=== PATIENT | male | born 1965 | race Two or more races ===

== ENCOUNTER 2024-07-15 19:45 | Observation (INO) | payer BC, SELFPAY ==
[2024-07-15] VITALS (8 sets, daily range): BP systolic 118–145; BP diastolic 75–92; PULSE 76–106; RESP 14–98; TEMP 33.5–36.4; O2SAT 95–100; BMI 18.4
--- NOTE | 2024-07-15 20:09 | EDNOTE_ITS ---
Altered Mental Status RME/HPI General Chief Complaint: Altered Mental Status Stated Complaint: LOW BLOOD SUGAR Time Seen by Provider: 07/15/24 19:52 Arrival date/time: 07/15/24 19:45 RME / HPI RME / HPI narrative: Dr. Pak?s Main ED Evaluation: 59yo male ABHISHEK from home presents to the ED for a chief complaint of altered mental status. Daughter states she was checking on the patient and noticed he was not acting his usual self, reporting she called 911 after she found the patient to have a blood sugar of 39. With EMS, blood sugar was 34, so they administered 250mL D10. They noticed the patient's pupils were pinpoint, so they administered Narcan 4mg and the patient woke up. Here, patient states he is cold, but daughter states that is usual for him. EMS notes the patient took 4 units of insulin, but did not eat anything today. No vomiting, fever or any other complaints reported. PMHx: seizures, PUD, s/p gastric bypass surgery, HTN, DMII, chronic opioid use for back pain. Related Data Home Medications ?Medication ?Instructions ?Recorded ?Confirmed ramipril 10 mg capsule (Altace) 10 mg PO QDAY 05/22/19 04/22/24 oxycodone 30 mg tablet (Roxicodone) 30 mg PO 4XD PRN Pain 01/04/22 04/22/24 ondansetron HCl 8 mg tablet 8 mg PO DAILY PRN Nausea 09/22/22 04/22/24 naloxone 4 mg/actuation nasal 1 spray intranasal Q2M PRN 12/10/22 04/22/24 spray (Narcan) Respiratory Distress levetiracetam 500 mg tablet 500 mg PO BID 07/18/23 04/22/24 potassium chloride 10 mEq 10 meq PO PRN PRN when taking lasix 07/19/23 04/22/24 tablet,extended release propranolol 10 mg tablet 10 mg PO BID 07/19/23 04/22/24 finerenone 10 mg tablet (Kerendia) 10 mg PO QDAY 04/03/24 04/22/24 Previous Rx's ?Medication ?Instructions ?Recorded lidocaine 5 % topical patch 1 patch topical QDAY PRN back pain 01/30/24 (Lidoderm) #30 ea Allergies Allergy/AdvReac Type Severity Reaction Status Date / Time ibuprofen AdvReac Severe gastric Verified 04/03/24 17:31 bypass Review of Systems Review of Systems Systems Reviewed: All systems reviewed, normal except as documented Narrative Review of Systems: Gen: No fever, + chills, no weight loss EYES: No discharge, no visual changes, no pain HEENT: No ear pain, no congestion, no sore throat PULM: No shortness of breath, no cough, no congestion CV: No chest pain, no dyspnea on exertion, no palpitations GI: No nausea, no vomiting, no diarrhea, no pain, no constipation : No frequency, no urgency, no dysuria Musc/skel: No joint pain, no back pain Skin: No rash. Warm and dry. Psyc: No hallucinations, no depression Heme/Lymph: No easy bleeding or bruising tendencies Neuro: No weakness, no headache Past Medical History Past Medical History NEUROLOGIC: Positive Neurological Disorders, Seizures and Epilepsy; Negative Transient Ischemic Attacks (TIA) CARDIAC: Positive Deep Vein Thrombosis and Hypertension; Negative Cardiac Disorders or Congestive Heart Failure RESPIRATORY: Positive Pulmonary Embolism; Negative Chronic Obstructive Pulmonary Disease (COPD), Asthma, Bronchitis or Pneumonia GASTROINTESTINAL: Positive Gastrointestinal Disorders, Gastrointestinal Bleed and Gastroesophageal Reflux Disease GENITOURINARY: Positive Genitourinary Disorders and Renal Disease MUSCULOSKELETAL: Positive Musculoskeletal Disorders, Arthritis, Osteoporosis and Fractures ENDOCRINE: Positive Endocrine Disorders and Diabetes Mellitus Type 2; Negative Diabetes Mellitus Type 1 HEMATOLOGIC: Positive Anemia and Clotting Problems; Negative Blood Disorders or Sickle Cell Disease OTHER HISTORY: Positive Hospitalization, Falls and Blood Transfusions; Negative Autoimmune Disease, Down Syndrome, Developmental Delay, Shingles, Blood Transfusion Reaction, Anesthesia Reactions, MRSA, Clostridium Difficile or Cancer Family History FAMILY HISTORY: Positive Family Cardiac Disorders and Family Cancer Surgical History SURGICAL: Positive Abdominal Surgery and Gastric Bypass Surgery; Negative Cardiac Surgery Social History SMOKING STATUS: Never smoker SECOND HAND EXPOSURE: No SUBSTANCE USE: does not use ED Exam Narrative Physical exam: GENERAL APPEARANCE: somnolent, but arousable to voice, well-developed, well- nourished, no acute distress VITALS: All vitals were reviewed and the pulse ox is 99% on room air, which is normal according to my interpretation. Patient is hypothermic at 92.3. HEENT: Normocephalic, atraumatic; pupils equal, round, reactive to light; EOMI; mucous membranes pink, moist; oropharynx clear NECK: Supple LUNGS: CTABL; no wheezes, no rales, no rhonchi HEART: Regular rate, regular rhythm; normal S1, S2; no murmurs ABDOMEN: non distended; normal BS; soft, no tenderness, no guarding, no rebound; no masses, no organomegaly, no hernia BACK: no CVA tenderness EXTREMITIES: atraumatic; no edema NEUROLOGIC: somnolent, but arousable to voice; cranial nerves II-XII grossly intact; no focal sensory or motor deficits PSYCHIATRIC: appropriate mood and affect SKIN: warm, dry, normal color; no rashes Course Course Course Narrative: CXR is ordered for determining the etiology of AMS. 2027: Patient's blood sugar is 57. D50 50mL ordered. Quality Measures none Orders Category Date Time Status Data Analytics Specialist STAT Care 07/15/24 20:11 Active Continuous Pulse Oximetry STAT Care 07/15/24 20:11 Completed EKG (ED ONLY) *Do not use* NOW Care 07/15/24 20:11 Completed In and Out Catheter X1PRN Care 07/15/24 20:11 Completed Insert IV NOW Care 07/15/24 20:11 Active NPO STAT Care 07/15/24 20:11 Active Strict Intake and Output Routine Care 07/15/24 20:11 Ordered Urinary Catheter QS Care 07/15/24 20:10 Active EKG (ED Only) Stat Exams 07/15/24 20:11 Ordered XR chest 1V portable Stat Exams 07/15/24 20:10 Completed Arterial Blood Gas Stat Lab 07/15/24 21:46 Completed B-Type Natriuretic Peptide Stat Lab 07/15/24 20:30 Completed Blood Culture (Lab) Stat Lab 07/15/24 20:25 Received CBC Stat Lab 07/15/24 20:25 Completed Comprehensive Metabolic Panel Stat Lab 07/15/24 20:30 Completed Drug Screen,Urine Stat Lab 07/15/24 21:38 Completed Free T4 (Free Thyroxine) Stat Lab 07/15/24 20:30 Completed LDH (Lactate Dehydrogenase) Stat Lab 07/15/24 20:30 Completed Lactate (Lactic Acid) Stat Lab 07/15/24 20:30 Completed Lipase Stat Lab 07/15/24 20:30 Completed Magnesium Stat Lab 07/15/24 20:30 Completed Partial Thromboplastin Time Stat Lab 07/15/24 20:30 Completed Phosphorous Stat Lab 07/15/24 20:30 Completed Procalcitonin Stat Lab 07/15/24 20:30 Completed Prothrombin Time with INR Stat Lab 07/15/24 20:30 Completed TSH [Thyroid Stimulating Hormone] Stat Lab 07/15/24 20:30 Completed Troponin I Stat Lab 07/15/24 20:30 Completed Urinalysis Stat Lab 07/15/24 21:38 Completed Urine Culture Stat Lab 07/15/24 21:38 Received Dextrose 5%-0.45% Ns [D5-1/2Ns] 1,000 ml Med 07/15/24 21:39 Active IV NOW Dextrose 50% Syr [D50w Syringe Abboject] Med 07/15/24 20:15 Discontinued 25 ml IV X1 ONE Dextrose 50% Syr [D50w Syringe Abboject] Med 07/15/24 20:28 Discontinued 25 ml IV X1 ONE Doxycycline Inj [Vibramycin Inj] 200 mg Med 07/15/24 20:10 Discontinued Sodium Chloride 0.9% 250 ml [Ns] 250 ml IV X1 Piper/Tazo 3.375 gm [Zosyn] Med 07/15/24 20:10 Discontinued 3.375 gm in 50 ml IV X1 Sodium Chloride 0.9% 1000 ml [Ns] 1,000 ml Med 07/15/24 20:10 Discontinued IV 999 mls/hr Oxygen Delivery NOW RT 07/15/24 20:11 Active Vital Signs Vital signs: Vital Signs Temperature 92.3 F L 07/15/24 19:58 Pulse Rate 106 H 07/15/24 19:58 Respiratory Rate 20 07/15/24 19:58 Blood Pressure 145/84 H 07/15/24 19:58 Pulse Oximetry (%) 100 07/15/24 19:58 Oxygen Delivery Method Room Air 07/15/24 19:58 Altered Mental Status MDM Narrative MDM Narrative:: Scribe Attestation: 07/15/24 - Evelyn Kang am scribing for and in the presence of Dr. Pak. Patient data External records reviewed:: [facility] previous records (Per chart review, patient was admitted here on 04/21/24 for hypoglycemia.) Clinical information provided by:: patient, EMS and family Social determinants that could affect healthcare access:: none Patient has the following chronic illnesses:: seizures, PUD, s/p gastric bypass surgery, HTN, DMII, chronic opioid use for back pain How is presenting disease/condition affected by chronic disease/condition?: caused by Evaluation data The following diagnostics were reviewed and interpreted by me:: lab results, radiology exam(s) and EKG tracing(s) Lab and/or radiology exams considered but not ordered:: none Interpretation Summary: WBC count is normal, HnH is stable 9.4/29.8 (which is the patient's baseline), Lactate is normal, BNP is normal, PTT is normal, PT and INR are normal, Glucose is low at 54, BUN is 31, LFTs are slightly elevated, troponin is normal, BNP is normal, Procalcitonin is normal, TSH is normal, Free T4 is normal, UA is unremarkable, UDS is positive for opiates, according to my interpretation. CXR shows an elevated right hemidiaphragm, otherwise, normal cardiac silhouette, no infiltrates, according to my interpretation. EKG done at 2021, NSR, rate of 86, normal axis, no ectopy, Q waves in V1 and V2, no acute ischemia, according to my interpretation. Medications / Prescriptions Medications or Prescriptions considered but not ordered:: none Medication administrations:: Medication Administration History Dextrose/Sodium Chloride (D5-1/2ns) 1,000 mls @ 100 mls/hr IV NOW ONE Stop: 07/16/24 07:38 Last Admin: 07/15/24 21:47 Dose: 100 mls/hr Documented By: JUAN CARLOS Discontinued Medications Dextrose (Dextrose 50%-Water Inj 50 Ml Syringe) 25 ml IV X1 ONE Stop: 07/15/24 20:16 Last Admin: 07/15/24 20:34 Dose: 25 ml Documented By: JUAN CARLOS Dextrose (Dextrose 50%-Water Inj 50 Ml Syringe) 25 ml IV X1 ONE Stop: 07/15/24 20:29 Last Admin: 07/15/24 20:35 Dose: 25 ml Documented By: JUAN CARLOS Piperacillin/Tazobactam/Dextrose (Zosyn) 3.375 gm in 50 mls @ 100 mls/hr IV X1 ONE Stop: 07/15/24 20:39 Last Infusion: 07/15/24 21:59 Dose: Infused Documented By: JUAN CARLOS Admin: 07/15/24 20:36 Dose: 100 mls/hr Documented By: JUAN CARLOS Doxycycline Hyclate 200 mg/ (Sodium Chloride) 250 mls @ 125 mls/hr IV X1 ONE Stop: 07/15/24 22:09 Last Infusion: 07/15/24 22:47 Dose: Infused Documented By: Admin: 07/15/24 20:36 Dose: 125 mls/hr Documented By: SF Sodium Chloride (Ns) 1,000 mls @ 999 mls/hr IV .Q1H1M ONE Stop: 07/15/24 21:10 Last Infusion: 07/15/24 21:59 Dose: Infused Documented By: Admin: 07/15/24 20:36 Dose: 999 mls/hr Documented By: SF see above Consultations Consultation(s) initiated? (list below): Yes Consultation #1 (Physician, Specialty, Details): Discussed case with [Dr. Parker, attending Dr. Davila] from Hospitalist service regarding admission. Discussed patients ED course, exam findings, labs, and radiology results. The Hospitalist [agrees] to accept the patient for ad mission. Time: 23:04 Diagnosis Differential diagnosis altered mental status: hypoglycemia, sepsis and other (UTI, pneumonia, dehydration) Most likely diagnosis given after review of the tests above:: dehydration, sepsis, hypoglycemia Admission Indicated Admission indicated?: indicated Admission Request Was there a request for admission?: Yes Admission Attestation Admission request attestation: Discussed case with [] from Hospitalist service regarding admission. Discussed patients ED course, exam findings, labs, and radiology results. The Hospitalist [agrees,declines] to accept the patient for admission. Disposition Plan Disposition Plan: Admit Critical Care Time Critical Care Time Critical Care Time: Yes Total Critical Care Time (min.): 40 Attestation: The high probability of sudden, clinically significant deterioration in the patient?s condition required the highest level of my preparedness to intervene u rgently. The services I provided to this patient were to treat and/or prevent clinically significant deterioration. Services included the following: chart data review, reviewing nursing notes and/or old charts, documentation time, student union consultant collaboration regarding findings and treatment options, medication orders and management, direct patient care, vital sign assessments and ordering, interpre ting and reviewing diagnostic studies and lab tests. Aggregate critical care time includes only time during which I was engaged in work directly related to the patient?s care, as described above, whether at bedside or elsewhere in the Emergency Department. It did not include time spent performing other reported procedures or the services of residents, students, nurses or physician assistants. Discharge Plan Plan Patient Disposition: Admit Acute Care w/in Hospital Prescriptions/Referrals Prescriptions/Med Rec: No Action ramipril [Altace] 10 mg Capsule 10 mg PO QDAY oxycodone [Roxicodone] 30 mg tablet 30 mg PO 4XD PRN (Reason: Pain) ondansetron HCl 8 mg tablet 8 mg PO DAILY PRN (Reason: Nausea) naloxone [Narcan] 4 mg/actuation spray,non-aerosol 1 spray intranasal Q2M PRN (Reason: Respiratory Distress) Rx Instructions: spray 1 dose into ONE nostril; alternate nostrils w each dose until help arrives levetiracetam 500 mg tablet 500 mg PO BID potassium chloride 10 mEq Tablet Extended Release 10 meq PO PRN PRN (Reason: when taking lasix) propranolol 10 mg Tablet 10 mg PO BID lidocaine [Lidoderm] 5 % adhesive patch,medicated 1 patch topical QDAY PRN (Reason: back pain) Qty: 30 0RF Rx Instructions: leave on most painful area for up to 12 hrs Kerendia 10 mg tablet 10 mg PO QDAY Referrals: No Primary/Family,Physician [Primary Care Provider] - In 1 week Problem List Clinical Impression: Hypoglycemia, Sepsis, Dehydration Patient/Caregiver Discharge Instructions Print Language: Bengali Stand Alone Forms: Sherrell Award Info., Patient Portal Info Letter
--- NOTE | 2024-07-15 20:10 | XR_ITS ---
Examination: AP chest single view Technique one AP portable semiupright chest single view Standing time: 10.2024 hours INDICATIONS: Sepsis today. FINDINGS: Early pneumonia left base Significant elevation right hemidiaphragm Normal heart size IMPRESSION: Early pneumonia left base
[2024-07-15] MEDS: DEXTROSE 50%-WATER INJ 50 ML SYRINGE 25 ML IV ×2 (20:34→20:35)
[2024-07-15] MEDS: DOXYCYCLINE INJ 200 MG in SODIUM CHLORIDE 0.9% 250 ML 250 ML 125 MG IV (20:36)
[2024-07-15] MEDS: PIPER/TAZO 3.375 GM 3.375 GM/50 ML BAG IV (20:36)
[2024-07-15] MEDS: SODIUM CHLORIDE 0.9% 1000 ML 1,000 ML 999 ML IV (20:36)
[2024-07-15 20:44] LABS: Lactate (Lactic Acid) 1.5 mMol/L (0.4-2.0)
[2024-07-15 20:48] LABS: Basophils % (Auto) 0 % (0-2.5); Eosinophils % (Auto) 0 % (0-10); Hematocrit 29.8 % (41.0-53.0); Hemoglobin 9.4 g/dL (13.5-16.0); Immature Granulocytes % (Auto) 0 % (0-0); Immature Granulocytes Auto 0.01 Thou/mm3 (0.00-0.00); Lymphocytes # (Auto) 0.4 Thou/mm3 (1.0-4.8); Lymphocytes % (Auto) 9 % (10-50); Mean Corpuscular HGB Conc 31.5 g/dl (31.0-37.0); Mean Corpuscular Hemoglobin 25.3 pg (25.0-35.0); Mean Corpuscular Volume 80 fL (80-100); Monocytes # (Auto) 0.5 Thou/mm3 (0.0-0.8); Monocytes % (Auto) 12 % (0-12); Neutrophils # (Auto) 3.4 Thou/mm3 (1.8-7.7); Neutrophils % (Auto) 79 % (37-80); Nucleated Red Blood Cell % 0 /100 WBC (0); Platelet Count 250 Thou/mm3 (140-440); RDW Standard Deviation 56.4 fL (35.1-43.9); Red Blood Count 3.72 Miln/mm3 (4.50-5.90); White Blood Count 4.3 Thou/mm3 (3.8-10.6)
[2024-07-15 21:00] LABS: Partial Thromboplastin Time 28.5 Seconds (22.0-36.0); Prothrombin Time 10.7 Seconds (9.0-12.2)
[2024-07-15 21:18] LABS: B-Type Natriuretic Peptide 52 pg/mL (0-100)
[2024-07-15 21:20] LABS: Alanine Aminotransferase 64 U/L (10-49); Albumin, Serum 4.2 gm/dL (3.4-4.8); Albumin/Globulin Ratio 1.6 (1.2-2.2); Alkaline Phosphatase 164 U/L (46-116); Anion Gap 10 (7-16); Aspartate Amino Transferase 45 U/L (0-34); BUN/Creatinine Ratio 28 Ratio (12-20); Bilirubin,Total 0.4 mg/dL (0.3-1.2); Blood Urea Nitrogen 31 mg/dL (9-23); Calcium 9.8 mg/dL (8.3-10.6); Calcium (Corrected) 9.8 mg/dL (8.5-10.1); Carbon Dioxide 27.2 mMol/L (20.0-31.0); Chloride 95 mMol/L (98-107); Creatinine (Component) 1.1 mg/dL (0.6-1.3); Estimated Creatinine Clearance 57.3 mL/min (>60); Free T4 (Free Thyroxine) 1.69 ng/dL (0.89-1.76); Globulin 2.7 gm/dL (2.3-3.5); Glucose 54 mg/dL (74-106); Lipase 22 U/L (12-53); Magnesium 1.9 mg/dL (1.6-2.6); Osmolality,Calculated 269 (275-295); Phosphorous 2.6 mg/dL (2.4-5.1); Potassium 3.5 mMol/L (3.4-5.1); Procalcitonin 0.26 ng/ml (0.0-0.49); Sodium 132 mMol/L (136-145); Thyroid Stimulating Hormone 0.62 uIU/mL (0.55-4.78); Total Protein 6.9 gm/dL (5.7-8.2); Troponin I < 0.020 ng/mL (0.0-0.045); eGFR > 60 See Note
[2024-07-15] MEDS: DEXTROSE 5%-0.45% NS 1,000 ML 100 ML IV (21:47)
[2024-07-15 21:52] LABS: LDH (Lactate Dehydrogenase) 254 U/L (120-246)
[2024-07-15 21:52] LABS: Base Excess 3 (-3-3); HCO3 28 mEq/L (20-26); Inspired Oxygen, FIO2 21 %; O2 Saturation 96 % (91-98); PCO2 45 mmHg (32.0-48.0); PO2 76 mmHg (83-108)
[2024-07-15 21:56] LABS: Allen Test Performed/OK; Puncture Site Right Radial
[2024-07-15 21:57] LABS: Collection Type, Urine Clean Catch; Squamous Epithelial Cell,Urine 0 /hpf (0-5)
[2024-07-15 22:13] LABS: Amphetamine/Methamp Scrn,U Negative (Negative); Barbiturate Screen,Urine Negative (Negative); Benzodiazepines Screen,Urine Negative (Negative); Benzoylecgonine Screen, Ur Negative (Negative); Fentanyl Screen,Urine Negative (Negative); Opiate Screen,Urine Positive (Negative); THC Screen,Urine Negative (Negative)
[2024-07-15 22:22] LABS: Bilirubin,Urine Negative (Negative); Blood,Urine Negative (Negative); Clarity,Urine Clear (Clear/Hazy); Color,Urine Lt-Yellow (Lt Yel-Yel); Glucose, Urine 1+ (Negative); Ketones,Urine 1+ (Negative); Leukocyte Esterase,Urine Negative (Negative); Nitrite,Urine Negative (Negative); Protein,Urine Trace (Neg - Trace); RBC,Urine 1 /hpf (0-3); Specific Gravity,Urine 1.014 (1.001-1.035); Urobilinogen,Urine Negative mg/dL (0.0-1.0); WBC,Urine < 1 /hpf (0-5)
[2024-07-15] MEDS: DEXTROSE 50%-WATER INJ 50 ML SYRINGE IV (23:26)
--- NOTE | 2024-07-15 23:45 | PD.RESHP ---
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 According to patient's daughter at approximately 7 PM she found him lying on his bed diaphoretic and with chills. She said she checked his blood glucose at the time and it was 46. He was attempting to verbalize but unable to do so, she was scared to give him anything p.o. as she was worried that he could not protect his airway. Subsequently she called the EMS for transport to the hospital. Denied any shaking, tongue biting, eye rolling, urinary/stool incontinence, postictal state, syncope. Currently patient is alert and oriented x 3. He says that around 2 PM he had a large slice of pumpkin pie and subsequently took 4 units of regular insulin SC. He then went to having a nap. From chart review patient has had multiple admissions for the past year all for hypoglycemic episodes. Currently he is on sliding scale insulin regular at home. Previously he was on long-acting insulin but had to discontinue as that caused him even worse hypoglycemic episodes. Currently relies on fingerstick for blood glucose measurements and does not have a CGM. With regards to his GI bleed for investigation patient has had multiple EGDs and colonoscopies in the past which only revealed sigmoid diverticulosis and internal hemorrhoids, no clear source of bleeding was ever found. Currently patient is awaiting referral for capsule endoscopy. ED course : BP 145/84, pulse 106, RR 20, temp 92.3 F, SpO2 100% on room air. Labs significant for Hb 9.4, HCT 29.8, NA 132, K3.5, BUN 31, CR 1.1, glucose 54. Urinalysis significant for 1+ glucose, 1+ ketones. U tox positive for opioids. Chest x-ray significant for elevated right hemidiaphragm. In the ED patient received D50 25 mL IV x 2, Zosyn 3.375 g IV x 1, doxycycline 200 Mg IV x 1, normal saline 1 L IVF bolus, D5/NS 1 L IV at 100 cc/hour and D50 50 mL IV x 1. Patient will be admitted to observation for treatment and management of altered mental status secondary to hypoglycemia Review of Systems Review of Systems Narrative Review of Systems: GENERAL: Denies fever/chills or diaphoresis. HEENT: Denies headaches or visual changes. Denies discharge. Neuro: Denies unusual weakness or difficulty speaking. CARDIO: Denies chest pain or palpitations. PULM: Denies SOB, coughing or wheezing. GI: Denies abdominal pain, N/V/C/D. Reports having BMs. URO: Denies burning/itching/pain/urinary changes. MSK/EXT/SKIN: Denies joint/skeletal/muscle pain, issues/changes in upper or lower extremities, itchiness, or superficial pain. PSYCH: Cooperative, pleasant mood & affect. The rest of the review of systems is otherwise negative. Past Medical History Past Medical History Comments [facility] COMMENT: Past medical history: ? Insulin-dependent diabetes mellitus type 1 - Seizure disorder ? Normocytic anemia ? History of right segmental pulmonary embolism [2019] ? History of right DVT [2019] ? Osteoporosis Medication list: ?Ramipril 10 Mg p.o. daily ? Oxycodone 30 Mg p.o. 4 times daily ? Ondansetron 8 Mg p.o. daily as needed ? Naloxone spray intranasal as needed ? Keppra 500 Mg p.o. twice daily ? KCl 10 mEq p.o. as needed ? Propranolol 10 Mg p.o. twice daily ? Lidocaine patch as needed ? Kerendia 10 Mg p.o. daily ? Eliquis 2.5 Mg p.o. twice daily ? Pantoprazole 40 Mg p.o. daily Past surgical history: ?Katherine-en-Y gastric bypass [2008] ? IVC filter [2021] ? Left hip trochanteric nailing with Synthes implants [2022] Allergies: NIL Social history: Occupational History: Education Level: Marital Status: Tobacco use: Denies ETHO use: Denies Illicit drug use: Denies Social History Note: lives with daughter. Ambulates with a Cane at Baseline Family History: Mother: Insulin-dependent diabetes mellitus type 1, breast cancer Brother?CKD Brother?bone cancer Brother?prostate cancer Exam Vital Signs Temp Pulse Resp BP Pulse Ox O2 Del Method 97.5 F 96 16 118/75 95 Room Air 07/15/24 22:08 07/15/24 22:00 07/15/24 22:00 07/15/24 22:00 07/15/24 22:00 07/15/24 22:00 Narrative Exam Constitutional Alert, oriented x 3 and comfortable. Elderly male, appears much older than his age HEENT Vision grossly intact. Patent nares. Trachea midline Respiratory Chest normal on inspection and clear auscultation bilaterally Cardiovascular S1 and S2 audible, RRR. No murmurs carotid bruit. No gross JVD. Abdominal Soft and non tender to palpation in all quadrants. BS + Genitourinary No bladder tenderness, no flank pain. Normal to palpation Musculoskeletal Extremities tone within normal limits. No LE edema. Neurological CN II - XII grossly intact. Extremity motor and sensation grossly intact. Skin Warm, dry and intact. No apparent lesions. Psychiatric Patient has good affect, is cooperative Results: Labs 07/16/24 05:05 07/15/24 20:30 Labs: Short CBC 07/15/24 Range/Units 20:25 WBC 4.3 (3.8-10.6) Thou/mm3 Hgb 9.4 L (13.5-16.0) g/dL Hct 29.8 L (41.0-53.0) % Plt Count 250 (140-440) Thou/mm3 BMP 07/15/24 20:30 Sodium 132 L Potassium 3.5 Chloride 95 L Carbon Dioxide 27.2 BUN 31 H Creatinine 1.1 Glucose 54 L Calcium 9.8 Cardiac Enzymes 07/15/24 Range/Units 20:30 Troponin I < 0.020 (0.0-0.045) ng/mL Liver Function 07/15/24 Range/Units 20:30 Total Bilirubin 0.4 (0.3-1.2) mg/dL AST 45 H (0-34) U/L ALT 64 H (10-49) U/L Alkaline Phosphatase 164 H (46-116) U/L Albumin 4.2 (3.4-4.8) gm/dL Urine 07/15/24 Range/Units 21:38 Urine Color Lt-Yellow (Lt Yel-Yel) Urine Clarity Clear (Clear/Hazy) Urine pH 6.0 (5.0-7.0) Ur Specific Bassett 1.014 (1.001-1.035) Urine Protein Trace (Neg - Trace) Urine Glucose (UA) 1+ A (Negative) ABG Interpretation ABG results: 07/15/24 21:46 ABG pH 7.40 ABG pCO2 45 ABG pO2 76 L ABG HCO3 28 H ABG O2 Saturation 96 ABG Base Excess 3 Quality Measures Quality Measures none Medications Home Medications and Allergies Home Medications ?Medication ?Instructions ?Recorded ?Confirmed ?Type ramipril 10 mg capsule (Altace) 10 mg PO QDAY 05/22/19 04/22/24 History oxycodone 30 mg tablet (Roxicodone) 30 mg PO 4XD PRN Pain 01/04/22 04/22/24 History ondansetron HCl 8 mg tablet 8 mg PO DAILY PRN Nausea 09/22/22 04/22/24 History naloxone 4 mg/actuation nasal 1 spray intranasal Q2M PRN 12/10/22 04/22/24 History spray (Narcan) Respiratory Distress levetiracetam 500 mg tablet 500 mg PO BID 07/18/23 04/22/24 History potassium chloride 10 mEq 10 meq PO PRN PRN when taking lasix 07/19/23 04/22/24 History tablet,extended release propranolol 10 mg tablet 10 mg PO BID 07/19/23 04/22/24 History finerenone 10 mg tablet (Kerendia) 10 mg PO QDAY 04/03/24 04/22/24 History Allergies Allergy/AdvReac Type Severity Reaction Status Date / Time ibuprofen AdvReac Severe gastric Verified 04/03/24 17:31 bypass Visit Medications Dextrose/Sodium Chloride (D5-1/2ns) 1,000 mls @ 100 mls/hr IV NOW ONE Stop: 07/16/24 07:38 Last Admin: 07/15/24 21:47 Dose: 100 mls/hr Discontinued Medications Dextrose (Dextrose 50%-Water Inj 50 Ml Syringe) 25 ml IV X1 ONE Stop: 07/15/24 20:16 Last Admin: 07/15/24 20:34 Dose: 25 ml Dextrose (Dextrose 50%-Water Inj 50 Ml Syringe) 25 ml IV X1 ONE Stop: 07/15/24 20:29 Last Admin: 07/15/24 20:35 Dose: 25 ml Dextrose (Dextrose 50%-Water Inj 50 Ml Syringe) 50 ml IV X1 ONE Stop: 07/15/24 23:16 Last Admin: 07/15/24 23:26 Dose: 50 ml Piperacillin/Tazobactam/Dextrose (Zosyn) 3.375 gm in 50 mls @ 100 mls/hr IV X1 ONE Stop: 07/15/24 20:39 Last Infusion: 07/15/24 21:59 Dose: Infused Doxycycline Hyclate 200 mg/ (Sodium Chloride) 250 mls @ 125 mls/hr IV X1 ONE Stop: 07/15/24 22:09 Last Infusion: 07/15/24 22:47 Dose: Infused Sodium Chloride (Ns) 1,000 mls @ 999 mls/hr IV .Q1H1M ONE Stop: 07/15/24 21:10 Last Infusion: 07/15/24 21:59 Dose: Infused Assessment & Plan Plan Patient is a 59-year-old male with a past medical history significant for insulin-dependent diabetes mellitus type 1 [6.4%], Katherine-en-Y gastric bypass [2007], history of PUD and GI bleed for investigation and PE/DVT on Eliquis presenting today with a chief complaint of altered mental status. Patient will be admitted to observation for treatment and management of altered mental status secondary to hypoglycemia. 1. Altered mental status secondary to hypoglycemia Patient presented with altered mental status and a blood glucose of 46 On exam patient was alert and oriented x 3 On arrival patient's blood glucose was 54, currently 87 In the ED patient received D50 25 mL IV x 2, Zosyn 3.375 g IV x 1, doxycycline 200 Mg IV x 1, normal saline 1 L IVF bolus, D5/NS 1 L IV at 100 cc/hour and D50 50 mL IV x 1. Plan: ? Low consistent carb diet ? HbA1c ? Continue D5/normal saline infusion at 100 cc/hour ? Hypoglycemia protocol in place 2. Insulin-dependent diabetes mellitus type 1 [6.4%] Patient on sliding scale insulin regular at home as needed Patient has had multiple hypoglycemic episodes in the past year due to being overly sensitive to insulin. Plan: ? Low consistent carb diet ? Insulin sliding scale [sensitive] ? Recommend CGM on discharge ? Patient may benefit from insulin pump on discharge ? Recommend endocrinology referral on discharge as patient has multiple hypoglycemic episodes in the past year and may benefit from a specialist visits to adjust his medication. 3. Essential hypertension On admission BP 145/84 Home medication ramipril 10 Mg p.o. daily, propranolol 10 Mg p.o. twice daily and Kerendia 10 Mg p.o. daily Plan: ? Started on enalapril 10 Mg p.o. daily 4. Normocytic anemia On admission Hb 9.4. From chart review baseline appears to be between 10-12 DDx: ANDRES, blood loss anemia, anemia of chronic disease, thalassemia, lead poisoning - Plan: - Suggest Iron panel, B12, Folate, retic count, blood smear to further evaluate 5. 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 History of PUD and GI bleed for investigation 7. History of PE and DVT on Eliquis Patient had history of GI bleed last year with hemoglobin being 6.8 at its lowest and requiring 2 units PRBC transfusion. Patient had right segmental pulmonary embolism and right leg DVT in 2018 and since then has been on Eliquis 5 Mg p.o. twice daily which was subsequently decreased to 2.5 Mg p.o. twice daily after his GI bleed in 2023. Currently patient is awaiting capsule endoscopy study as he has had multiple EGDs and colonoscopies over the past year with the source of bleeding still being obscure. Health maintenance: Disposition: Monitoring. Blood glucose control Diet: Low consistent carb Lines: pIVs GI Prophylaxis: None Thrombo Prophylaxis: Apixaban Code status: FULL CODE Plan of care discussed with Attending Dr. Mahendra Zhang MD PGY 1 Attending Provider Attestation/Addendum 59-year-old male patient with diabetes mellitus on insulin. He gives himself regular insulin 4 units 3 times a day with meals. Patient said that around 2 PM earlier he is left after eating his meal and gave himself an injection of 4 units regular insulin. Patient was awakened by his daughter. He said that he was not answering initially. He was altered was brought to the emergency room. He was noted to be hypoglycemic. He responded to D50 IV administered. Patient will be admitted/observation. Check for infection. Patient denies chest pain. Adjust dose of insulin.
[2024-07-16 00:43] VITALS: BP 124/79; PULSE 96; RESP 15; TEMP 36.8; O2SAT 97
[2024-07-16 00:53] VITALS: BMI 19.9
[2024-07-16] MEDS: oxyCODONE HCL 5 MG IR TAB 30 MG PO ×2 (01:18→08:50)
[2024-07-16 06:25] LABS: Basophils % (Auto) 0 % (0-2.5); Eosinophils % (Auto) 1 % (0-10); Hematocrit 25.4 % (41.0-53.0); Immature Granulocytes % (Auto) 0 % (0-0); Immature Granulocytes Auto 0.01 Thou/mm3 (0.00-0.00); Lymphocytes # (Auto) 0.8 Thou/mm3 (1.0-4.8); Lymphocytes % (Auto) 16 % (10-50); Mean Corpuscular HGB Conc 31.5 g/dl (31.0-37.0); Mean Corpuscular Hemoglobin 25.2 pg (25.0-35.0); Mean Corpuscular Volume 80 fL (80-100); Monocytes # (Auto) 0.9 Thou/mm3 (0.0-0.8); Monocytes % (Auto) 18 % (0-12); Neutrophils # (Auto) 3.2 Thou/mm3 (1.8-7.7); Neutrophils % (Auto) 65 % (37-80); Nucleated Red Blood Cell % 0 /100 WBC (0); Platelet Count 240 Thou/mm3 (140-440); RDW Standard Deviation 56.7 fL (35.1-43.9); Red Blood Count 3.17 Miln/mm3 (4.50-5.90); White Blood Count 4.9 Thou/mm3 (3.8-10.6)
[2024-07-16 07:21] LABS: Anion Gap 7 (7-16); BUN/Creatinine Ratio 20 Ratio (12-20); Blood Urea Nitrogen 24 mg/dL (9-23); Carbon Dioxide 29.8 mMol/L (20.0-31.0); Cardiac Risk Estimate 1.7 RATIO (4.0-6.7); Chloride 95 mMol/L (98-107); Cholesterol 144 mg/dL (132-200); Creatinine (Component) 1.2 mg/dL (0.6-1.3); Estimated Creatinine Clearance 52.8 mL/min (>60); Glucose 201 mg/dL (74-106); HDL Cholesterol 85 mg/dL (40-60); LDL Cholesterol,Calculated 50 mg/dL (0-130); Magnesium 1.7 mg/dL (1.6-2.6); Osmolality,Calculated 274 (275-295); Potassium 4.6 mMol/L (3.4-5.1); Sodium 132 mMol/L (136-145); Triglycerides 44 mg/dL (30-150); eGFR > 60 See Note
[2024-07-16 07:46] LABS: Glucose Estimated Average 160 mg/dL (80-131); Hemoglobin A1C 7.2 % Hgb (4.8-6.0)
[2024-07-16 08:00] VITALS: BP 107/59; PULSE 108; RESP 16; TEMP 36.3; O2SAT 93
--- NOTE | 2024-07-16 08:40 | PC.NURSE ---
[facility]24 from 0100 to 0700.
[2024-07-16] MEDS: APIXABAN 2.5 MG TABLET PO (08:51)
[2024-07-16] MEDS: levETIRAcetam 250 MG TABLET 500 MG PO (08:51)
[2024-07-16] MEDS: NAPH,KPH MBDB 1 PACKET (1.5 GM) PO (09:44)
[2024-07-16 10:20] VITALS: BP 107/58; PULSE 78
--- NOTE | 2024-07-16 10:42 | PC.SS ---
Patient Ric Wayne is a 59 Year old male admitted for Hypoglycemia and hypothermia. SS met with patient at bedside in order to complete initial assessment. Patient appeared alert and oriented to self, place and situation. Patient reported that he resides at home with his daughter, Maria E. Patient is independent with all ADLs. He reports he does have a FWW. However only utilizes it at needed. Patient assigned his daughter, Maria E as his medical decision maker [phone]. Patient's PCP is Dr. Brannon.When medically clear, patient will return home and his family will provide transportation. Discharge plan: Home Next of Kin: Daughter, Maria E Wayne
[2024-07-16 12:00] VITALS: BP 120/75; PULSE 88; RESP 17; TEMP 36.7; O2SAT 97
--- NOTE | 2024-07-16 13:38 | ESDS_ITS ---
<Statement entered by Darline Kulkarni DO - 07/17/24 13:28> I, Darline Kulkarni DO, attest that I was physically present for the iyer portions of the service and evaluated the patient with the resident and I reviewed and discussed the case with the resident and agree with the resident's findings and plans of care as documented above Planned Discharge Date 07/16/24 DS: Providers Provider Date of admission: 07/15/24 23:46 Primary care physician: Physician No Primary/Family Admitting Provider: Robert Mccray MD Attending Provider on Admission: Robert Mccray MD Consults: 07/16/24 10:59 Referral Registered Dietitian Stat Comment: Attending Provider on DC: Darline Kulkarni DO Discharging Provider: Lino Reddy MD Anticipated date of discharge: 07/16/24 DS: Diagnosis Problem List Completed Was Problem List Reviewed/Reconciled?: Yes Hospital Course Hospital Course Hospital course: 59-year-old male with a past medical history significant for insulin-dependent diabetes mellitus type 1 [6.4%], 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 Patient will be admitted to observation for treatment and management of altered mental status secondary to hypoglycemia. During hospital stay patient's mentation was monitored until reaching baseline, likely very secondary to hypoglycemia. Was provided with D5 normal saline infusion and blood sugars improved. Patient has history of in sulin-dependent diabetes was managed with insulin sliding scale sensitive, low carb consistent diet. Patient is recommended to follow-up with endocrinology due to multiple hypoglycemic episodes. Hypertension is managed with patient's home medication allopurinol 10 mg daily. At this time patient is medically stable for discharge. Recommend to discontinue using insulin at home due to frequent hypoglycemia. Recommended to follow-up with primary care physician/finger buffs assembler for management of insulin regimen. You are prescribed continuous glucose monitor freestyle darin 3, please monitor fingerstick glucose levels, recommend to follow-up with your primary care physician within 1 week of discharge from hospital. In case of worsening symptoms, please turn to the emergency room. 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 Shad Reddy MD PGY-1 Status at Discharge Functional status at discharge: independent ambulation Overall status at discharge: patient is back to baseline Time Spent with Patient Time attestation: Total time spent providing and/or coordinating discharge services: Time spent: Greater than 30 minutes Exam Vital Signs Temp Pulse Resp BP Pulse Ox O2 Del Method 98.0 F 88 17 120/75 97 Room Air 07/16/24 12:00 07/16/24 12:00 07/16/24 12:00 07/16/24 12:07/16/24 12:07/16/24 12:00 Narrative Exam Physical Exam GENERAL: NAD, AAOx3, frail HEENT: Moist mucosa. Eyes open, symmetrical, & clear CARDIO: Heart RRR, no obvious murmurs PULM: No noted coughing/dyspnea CTA B/L, no R/W/R GI: Abdomen soft, nondistended, no pain on palpation. BSx4 SKIN/MSK/EXT: No wounds/rashes/edema/amputations, no pain on palpation. Pedal pulses present B/L NEURO: AAOx3, no focal neuro deficits, able to move all 4 extremities Discharge Plan Plan Patient Disposition: HOME (Self Care) Patient condition on transfer: Stable Care Plan Goals: Recommend to discontinue using insulin at home due to frequent hypoglycemia. You are prescribed continuous glucose monitor freestyle darin 3, please monitor fingerstick glucose levels, recommend to follow-up with your primary care physician within 1 week of discharge from hospital. In case of worsening symptoms, please turn to the emergency room. Prescriptions/Referrals Prescriptions/Med Rec: New (DME) FreeStyle Darin 3 Sensor Device See Rx Instructions .Route Qty: 1 0RF Rx Instructions: As directed Continued ramipril [Altace] 10 mg Capsule 10 mg PO QDAY oxycodone [Roxicodone] 30 mg tablet 30 mg PO 4XD PRN (Reason: Pain) ondansetron HCl 8 mg tablet 8 mg PO DAILY PRN (Reason: Nausea) naloxone [Narcan] 4 mg/actuation spray,non-aerosol 1 spray intranasal Q2M PRN (Reason: Respiratory Distress) Rx Instructions: spray 1 dose into ONE nostril; alternate nostrils w each dose until help arrives levetiracetam 500 mg tablet 500 mg PO BID potassium chloride 10 mEq Tablet Extended Release 10 meq PO PRN PRN (Reason: when taking lasix) propranolol 10 mg Tablet 10 mg PO BID lidocaine [Lidoderm] 5 % adhesive patch,medicated 1 patch topical QDAY PRN (Reason: back pain) Qty: 30 0RF Rx Instructions: leave on most painful area for up to 12 hrs Kerendia 10 mg tablet 10 mg PO QDAY Referrals: No Primary/Family,Physician [Primary Care Provider] - Patient/Caregiver Discharge Instructions Print Language: Chilean Stand Alone Forms: Sherrell Award Info., Patient Portal Info Letter, Work/Release Restrictions Discharge Order Discharge Orders: Discharge (Routine); Ordered 07/16/24 Ordered By: Addie Kilpatrick Quality Discharge Quality Measures VTE prophylaxis
[2024-07-16 14:28] VITALS: BMI 19.9
== END 2024-07-16 15:22 | disposition home or self-care (01) ==
LOC: SERX 23:06 → S3EX 07-16 07:40 → SERHOLD 07-16 08:02 → S3EX 07-16 08:03
PROVIDERS: Admitting Provider Internal Medicine; Emergency Provider Emergency Medicine; Visit Provider Internal Medicine
DX: E10.649 Type 1 diabetes mellitus with hypoglycemia without coma (principal); D64.9 Anemia, unspecified; E86.0 Dehydration; G40.909 Epilepsy, unspecified, not intractable, without status epilepticus; I10 Essential (primary) hypertension; K21.9 Gastro-esophageal reflux disease without esophagitis; K57.30 Diverticulosis of large intestine without perforation or abscess without bleeding; M19.90 Unspecified osteoarthritis, unspecified site; M81.0 Age-related osteoporosis without current pathological fracture; Z80.3 Family history of malignant neoplasm of breast; Z80.42 Family history of malignant neoplasm of prostate; Z82.49 Family history of ischemic heart disease and other diseases of the circulatory system; Z83.3 Family history of diabetes mellitus; Z86.711 Personal history of pulmonary embolism; Z86.718 Personal history of other venous thrombosis and embolism; Z87.11 Personal history of peptic ulcer disease; Z87.19 Personal history of other diseases of the digestive system; Z98.84 Bariatric surgery status
CPT/HCPCS: 51701; 36415; 36600; 71045; 80048; 80053; 80061; 80307; 81001; 82803; 83036; 83605; 83615; 83690; 83735; 83880; 84100; 84145; 84439; 84443; 84484; 85025; 85610; 85730; 87040; 87086; 87811; 93005; 96365; 96366; 99291; G0378; J2543; J3490; J7030; J7042; J7050; A9270

== ENCOUNTER 2024-09-09 16:43 | Inpatient (IN) | payer BC, SELFPAY ==
[2024-09-09] VITALS (11 sets, daily range): BP systolic 72–122; BP diastolic 40–74; PULSE 81–105; RESP 14–98; TEMP 34.8–37.2; O2SAT 98–100; BMI 20.7
--- NOTE | 2024-09-09 16:53 | EKG_ITS ---
[facility] Test Date: 2024-09-09 Pat Name: LADARIUS ARNOLD Department: Room: - Gender: Male Bulb Inspector: : 1965 Requested By: Sushant Moran Order Number: [id number] Reading MD: Sushant Moran Measurements Intervals [place] Rate: 94 P: 55 MN: 140 QRS: 36 QRSD: 94 T: 35 QT: 393 QTc: 493 Interpretive Statements SINUS RHYTHM LOW QRS VOLTAGE IN EXTREMITY LEADS [QRS DEFLECTION < 0.5 mV IN LIMB LEADS] Compared to ECG 07/16/2024 20:22:50 Low QRS voltage now present Myocardial infarct finding no longer present /store/S0/[id number].pdf
--- NOTE | 2024-09-09 16:53 | XR_ITS ---
Examination: CT brain head without contrast. 2-D sagittal coronal reconstructions Date and time of exam:September 09, 2024 at 1702 hours INDICATIONS: Stroke alert, onset focal neurologic deficit today CTDI: vol (mGy):51 6 DLP: (mGycm):1155 Technique: Multiple CT axial sections of the brain have been obtained, 5 mm slice thickness. Contrast has not been administered. 2-D sagittal, coronal reconstructions have been obtained Low dose protocols were performed. One or more of the following dose reduction techniques were used; automated exposure control, adjustment of the mA and/or KV according to patient size, use of iterative reconstruction technique. Findings: No significant ventricular enlargement. Intra-axial or extra-axial hemorrhage density is not seen. No mass effect or midline shift Basal cisterns are not remarkable. Fourth ventricle is midline. Cranial vault intact. Impression: Negative for acute hemorrhage, mass effect or midline shift
[2024-09-09 17:45] LABS: Basophils % (Auto) 0 % (0-2.5); Eosinophils % (Auto) 0 % (0-10); Hematocrit 32.4 % (41.0-53.0); Hemoglobin 9.7 g/dL (13.5-16.0); Immature Granulocytes % (Auto) 0 % (0-0); Immature Granulocytes Auto 0.03 Thou/mm3 (0.00-0.00); Lymphocytes # (Auto) 0.4 Thou/mm3 (1.0-4.8); Lymphocytes % (Auto) 4 % (10-50); Mean Corpuscular HGB Conc 29.9 g/dl (31.0-37.0); Mean Corpuscular Hemoglobin 25.1 pg (25.0-35.0); Mean Corpuscular Volume 84 fL (80-100); Monocytes # (Auto) 0.9 Thou/mm3 (0.0-0.8); Monocytes % (Auto) 9 % (0-12); Neutrophils % (Auto) 87 % (37-80); Nucleated Red Blood Cell # 0.11 Thou/mm3 (0.00-0.00); Nucleated Red Blood Cell % 1 /100 WBC (0); Platelet Count 303 Thou/mm3 (140-440); RDW Standard Deviation 62.7 fL (35.1-43.9); Red Blood Count 3.86 Miln/mm3 (4.50-5.90); White Blood Count 10.4 Thou/mm3 (3.8-10.6)
--- NOTE | 2024-09-09 17:45 | ESCONSULT_ITS ---
Tele Neuro Consultation Consultation Date 09/09/24 Most Recent Vital Signs Last Vital Signs Pulse 96 09/09/24 16:53 Consultation Narrative [facility] Patient Name:???Ric Wayne Date of :???1965 Identification Number:??? Date of Service:???09/09/2024 17:03:24 Diagnosis:?F05.9 - Delirium, unspecified Impression: ?The patient is presenting with unresponsiveness and is hypotensive. Even in Trendelenburg his systolic was only 70. He was given narcan which did improve his level of alertness so he has not normalized. Suspect this is more toxic metabolic medication related but since he has not normalized yet reasonable to get ctas. If no LASHAWN and he does not improve back to baseline with narcan consider EEG and MRI brain w/o. Sign Out: ? Discussed with Emergency Department Provider Advanced Imaging: Advanced Imaging Deferred because: Stroke not suspected with clinical presentation and exam Metrics: Last Known Well: Unknown Dispatch Time: 09/09/2024 17:03:24 Arrival Time: 09/09/2024 16:43:00 Initial Response Time: 09/09/2024 17:09:39Symptoms: AMS. Initial patient interaction: 09/09/2024 17:12:09 NIHSS Assessment Completed: 09/09/2024 17:22:00Patient is not a candidate for Thrombolytic. Thrombolytic Medical Decision: 09/09/2024 17:22:00Patient was not deemed candidate for Thrombolytic because of following reasons: other diagnosis suspected patient is hypotensive and confused . CT head showed no acute hemorrhage or acute core infarct. Primary Provider Notified of Diagnostic Impression and Management Plan on: 09/09/2024 17:51:24 History of Present Illness:Patient is a 59 year old Male. Patient was brought by private transportation with symptoms of AMS. 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 He came in through triage. HIs BP was 54/43. HR 96. He is also listed as being on keppra and takes narcotics at home. His pupils are pinpoint and he does have a history of accidental overdose. Past Medical History: ?Diabetes Mellitus Other PMH:? GI bleeding, chronic pain Medications: Anticoagulant use:??Unknown Antiplatelet use:?Unknown Reviewed EMR for current medications Other Medications Pertinent To Assessment Include: compliance with documented meds needs confirmation Allergies:? Reviewed Social History: Drug Use: No Family History: There is no family history of premature cerebrovascular disease pertinent to this consultation ROS : 14 Points Review of Systems was performed and was negative except mentioned in HPI. Past Surgical History: There Is No Surgical History Contributory To Today?s Visit Examination: BP(70/50),?Pulse(70),?Blood Glucose(211) 1A: Level of Consciousness - Movements to Pain?+ 2 1B: Ask Month and Age - Could Not Answer Either Question Correctly?+ 2 1C: Blink Eyes & Squeeze Hands - Performs 0 Tasks?+ 2 2: Test Horizontal Extraocular Movements - Normal?+ 0 3: Test Visual Amos - No Visual Loss?+ 0 4: Test Facial Palsy (Use Grimace if Obtunded) - Normal symmetry?+ 0 5A: Test Left Arm Motor Drift - No Effort Against [place]?+ 3 5B: Test Right Arm Motor Drift - No Effort Against [place]?+ 3 6A: Test Left Leg Motor Drift - No Effort Against [place]?+ 3 6B: Test Right Leg Motor Drift - No Effort Against [place]?+ 3 7: Test Limb Ataxia (FNF/Heel-Powell) - No Ataxia?+ 0 8: Test Sensation - Normal; No sensory loss?+ 0 9: Test Language/Aphasia - Coma/Unresponsive?+ 3 10: Test Dysarthria - Mute/Anarthric?+ 2 11: Test Extinction/Inattention - No abnormality?+ 0 NIHSS Score:?23 Pre-Morbid Modified Dalton Scale:1 Points = No significant disability despite symptoms; able to carry out all usual duties and activities Spoke with :?ED MD This consult was conducted in real time using interactive audio and video technology. Patient was informed of the technology being used for this visit and agreed to proceed. Patient located in hospital and provider located at home/office setting. Patient is being evaluated for possible acute neurologic impairment and high probability of imminent or life-threatening deterioration. I spent total of 35 minutes providing care to this patient, including time for face to face visit via telemedicine, review of medical records, imaging studies and discussion of findings with providers, the patient and/or family. Dr Milagros Huddleston [facility] For Inpatient follow-up with [facility] physician please call [facility] at . As we are not an outpatient service for any post hospital discharge needs please contact the hospital for assistance. If you have any questions for the [facility] physicians or need to reconsult for clinical or diagnostic changes please contact us via [facility] at .
[2024-09-09] MEDS: NALOXONE INJ 0.4 MG/ML VIAL IV (17:48)
--- NOTE | 2024-09-09 17:51 | PD.EDAMS ---
Altered Mental Status RME/HPI General Chief Complaint: Altered Mental Status Stated Complaint: ALTERED SINCE 1529 Time Seen by Provider: 09/09/24 17:32 Arrival date/time: 09/09/24 16:43 59 y/o male with history of GI bleeds requiring transfusions, Seizure peptic ulcer disease, pulmonary embolisms on Eliquis s/p IVC filter, CKD, hypertension, chronic back pain for which he uses opioids (oxycodone), falls, seizure disorder, and diabetes mellitus present to emergency room with family with c/o of alter mental status since 1500. Per daughter report repeating words and not speaking. Pt normal ambulated with no complications. hx of overdose in the past accidentally with pain medication. Per daughter Patient was called a STAT patient with a GCS of 3, GCS talkative after given 0.4 IV x1 Vitals HIs BP was 54/43. HR 96, 74/32 HR erratic 95-133, currently 133/84, 98.6 rectal, blood glucose 211 SEVERITY: Symptoms are described as being severe with limitations on activities of daily living CONTEXT: The patient is unable to identify any inciting events. DURATION/TIMING: The symptoms started approximately 1500 today ASSOCIATED SYMPTOMS: The patient is unable to identify any other associated symptoms. MODIFYING FACTORS: The patient is unable to identify any alleviating or aggravating symptoms. PERTINENT ROS: alter mental status, unable give history REVIEW OF SYSTEMS: See History of Present Illness - with the exception of those mentioned in the history of present illness, all other systems reviewed and reported as negative GENERAL: In general the patient is alter mental status , interactive, in an emergency department [facility]. HEAD/EYES/EARS/NOSE/THROAT:pupils are pinpoint normo-cephalic, atraumatic, mucus membranes are moist, anicteric, palpebral conjunctiva is pink, trachea is midline. CARDIOVASCULAR: regular rate and regular rhythm, no murmurs, heart sounds are not distant, strong pulses in all four extremities that are equal and symmetric bilateral upper and lower extremities, normal capillary refill. CHEST/PULMONARY: normal chest rise and fall, good air movement, clear to auscultation bilaterally, normal inspiratory to expiratory ratios without evidence of respiratory distress. NECK: No midline/Paraspinal tenderness, no step off ROM/Strenght intact No Kernig and bruzinski sign. No trauma ABDOMEN: soft, lower abdominal tenderness, no masses appreciated BACK: normal range of motion without pain. NEUROLOGICAL: cranio-facial features are symmetric, moves all four extremities equally without obvious limitations or weakness. EXTREMITY: no tenderness to palpation over the long bones or large joints of the bilateral upper and lower extremities, no joint swelling, no joint erythema, no signs of trauma, no unilateral leg swelling and no peripheral edema. SKIN: warm, dry, well-perfused, no jaundice, no rash, no telangiectasias or petechia. PSYCH: alter mental status Related Data Home Medications ?Medication ?Instructions ?Recorded ?Confirmed ramipril 10 mg capsule (Altace) 10 mg PO QDAY 05/22/19 09/09/24 oxycodone 30 mg tablet (Roxicodone) 30 mg PO 4XD PRN Pain 01/04/22 09/09/24 ondansetron HCl 8 mg tablet 8 mg PO DAILY PRN Nausea 09/22/22 09/09/24 naloxone 4 mg/actuation nasal 1 spray intranasal Q2M PRN 12/10/22 09/09/24 spray (Narcan) Respiratory Distress levetiracetam 500 mg tablet 500 mg PO BID 07/18/23 09/09/24 potassium chloride 10 mEq 10 meq PO PRN PRN when taking lasix 07/19/23 09/09/24 tablet,extended release propranolol 10 mg tablet 10 mg PO BID 07/19/23 09/09/24 finerenone 10 mg tablet (Kerendia) 10 mg PO QDAY 04/03/24 09/09/24 Previous Rx's ?Medication ?Instructions ?Recorded blood-glucose sensor (FreeStyle #1 ea 07/16/24 Ramila 3 Sensor device) Allergies Allergy/AdvReac Type Severity Reaction Status Date / Time ibuprofen AdvReac Severe gastric Verified 09/09/24 16:47 bypass Course Quality Measures Suspected type of Stroke: Unknown at this time Tenecteplase given: Reason(s) TPA not given: Unable to determine eligibility (does not meet criteria) not given stroke Orders Category Date Time Status Bedside Blood Glucose NOW Care 09/09/24 16:53 Active Bedside Blood Glucose NOW Care 09/10/24 00:11 Active Ground [employer] NOW Care 09/09/24 16:53 Active Continuous Pulse Oximetry NOW Care 09/09/24 16:53 Completed EKG (ED ONLY) *Do not use* NOW Care 09/09/24 16:53 Completed Lentz [Urinary Catheter] QS Care 09/09/24 19:39 Active In and Out Catheter NEEDED Care 09/09/24 16:53 Active Insert IV NOW Care 09/09/24 16:53 Active NIH Stroke Scale now Care 09/09/24 16:53 Active NPO NOW Care 09/09/24 16:53 Active Nurse Swallow Screen x1 Care 09/09/24 16:53 Active Consult to Nephrology Stat Cons 09/09/24 19:44 Ordered Consult to Neurology / Tele-Neurology Routine Cons 09/09/24 16:53 Active Consult to Neurology / Tele-Neurology Stat Cons 09/09/24 18:[address] chest abdomen pelvis wo Stat Exams 09/09/24 20:[address] stroke protocol Stat Exams 09/09/24 16:53 Completed CXRP [XR chest 1V portable] Stat Exams 09/09/24 20:02 Completed CXRP [XR chest 1V portable] Stat Exams 09/10/24 00:54 Completed EKG (ED Only) Stat Exams 09/09/24 16:53 Draft US renal BI Stat Exams 09/09/24 19:42 Completed BMP [Basic Metabolic Panel] Stat Lab 09/09/24 22:51 Completed Blood Culture (Lab) Stat Lab 09/09/24 20:24 Received CBC Stat Lab 09/09/24 17:36 Completed Comprehensive Metabolic Panel Stat Lab 09/09/24 18:25 Completed Drug Screen,Urine Stat Lab 09/09/24 19:07 Completed Lactic Acid [Lactate (Lactic Acid)] Stat Lab 09/09/24 20:24 Completed Magnesium Stat Lab 09/09/24 18:25 Completed Partial Thromboplastin Time Stat Lab 09/09/24 17:34 Completed Procalcitonin Stat Lab 09/09/24 20:24 Completed Prothrombin Time with INR Stat Lab 09/09/24 17:34 Completed Troponin I Stat Lab 09/09/24 18:25 Completed Urinalysis Stat Lab 09/09/24 19:07 Completed Urine Culture Stat Lab 09/09/24 19:07 Received VBG [Venous Blood Gas] Stat Lab 09/09/24 20:24 Completed Calcium Gluconate 10% Inj Med 09/09/24 20:39 Discontinued 1 gm IV X1 ONE Dextrose 5%-Water [D5w] 498 ml Med 09/09/24 17:45 Discontinued NALOXONE INJ (Syringe) [Narcan Inj (Syringe)] 0.4 mg IV 10 mls/hr Dextrose 5%-Water [D5w] 500 ml Med 09/10/24 01:30 Discontinued Sodium Bicarb 8.4% 50ml Vial* 88.23 meq IV 125 mls/hr Dextrose 5%-Water [D5w] 500 ml Med 09/10/24 10:55 Discontinued Sodium Bicarb 8.4% 50ml Vial* 88.23 meq IV 125 mls/hr Dextrose 50% Syr [D50w Syringe Abboject] Med 09/09/24 19:51 Discontinued 25 ml IV Q15MIN PRN Dextrose 50% Syr [D50w Syringe Abboject] Med 09/10/24 00:13 Discontinued 50 ml IV X1 ONE Furosemide [Lasix Inj] Med 09/09/24 20:44 Discontinued 20 mg IVP X1 ONE Insulin Regular Med 09/10/24 00:11 Discontinued 5 unit IV X1 ONE NALOXONE INJ (Vial) [Narcan Inj (Vial)] Med 09/09/24 17:30 Discontinued 0.04 mg IV X1 ONE NALOXONE INJ (Vial) [Narcan Inj (Vial)] Med 09/09/24 17:11 Discontinued 0.4 mg .ROUTE .STK-MED ONE NALOXONE INJ (Vial) [Narcan Inj (Vial)] Med 09/09/24 18:00 Discontinued 0.4 mg IV X1 ONE Norepinephrine/NS 16mg/250ml [Levophed in NS 16mg/250ml Med 09/09/24 20:17 Active ] 16 mg in 250 ml IV 0.05 mcg/kg/min Ringers Lactated 1000 ml [Lactated Ringers] 1,000 ml Med 09/09/24 18:17 Discontinued IV 999 mls/hr Vasopressin in Ns Ivpb [Vasostrict/Ns Ivpb] Med 09/10/24 01:07 Active 20 unit in 100 ml IV 0.03 unit/min Oxygen Delivery NOW RT 09/09/24 16:53 Active Reevaluation(s) Reevaluation #1: blood pressure normalized after given 1 dose of narcan. blood pressure 138/111, 1749 spoke with teleneuro, report unlike for stroke, CTA pending ,admission Reevaluation #2: pt is more talkative but blood pressure 90/43,3 IV bolus going, pending, CTA and admission to ICU, calcium glucanate, lasix 20mg IV 2386 94/54, Dr. Mckeon at bedside, will order EEG Vital Signs Vital signs: Vital Signs Pulse Rate 96 09/09/24 16:53 Procedures -ED EKG Interpretation #1: Date of EK09/09/24 Rate: 94 Interpretation: Reviewed by me EKG Impression: Normal sinus rhythm, No acute ST-T changes, No ectopy and No ischemic changes Altered Mental Status MDM Narrative MDM Narrative:: DISPOSITION: Emergency Department nursing documentation was reviewed including triage complaint, associated symptoms, administration of medications, response to therapy and vital signs. Given the history, physical exam, and review of laboratory and imaging studies the patient is determined to be unsafe for discharge and is being moved into the hospital for further diagnostic tests, treatments, stabilization, and monitored response to therapy. I communicated the history, physical exam, pertinent laboratory and imaging studies to the inpatient physician. The inpatient physician has access to electronic copies of all emergency department laboratory testing and imaging studies as well as medications ordered and administered. Patient data External records reviewed:: [facility] previous records Clinical information provided by:: patient and family Social determinants that could affect healthcare access:: none Patient has the following chronic illnesses:: as stated in chart How is presenting disease/condition affected by chronic disease/condition?: exacerbated by Evaluation data The following diagnostics were reviewed and interpreted by me:: lab results, radiology exam(s) and EKG tracing(s) Lab and/or radiology exams considered but not ordered:: n/a Interpretation Summary: CT:No significant ventricular enlargement. Intra-axial or extra-axial hemorrhage density is not seen. No mass effect or midline shift Basal cisterns are not remarkable. Fourth ventricle is midline. Cranial vault intact. Impression: Negative for acute hemorrhage, mass effect or midline shift CTA: cant do to kidney failure cbc: similar from previous; CMP Kidney failure, + potassium 6.1 elevated liver enzyme drug + opiate alcohol proc: 2.0 lactic wnl UA: no sign of infection us: Bilateral renal cortical thinning Small kidneys Moderate bilateral renal parenchymal scarring relation Significant prostatomegaly CT chest/abd: xray: Prominent pneumonia left base Prominent elevation right hemidiaphragm No significant cardiac enlargement IMPRESSION: Prominent left base pneumonia Medications / Prescriptions Medications or Prescriptions considered but not ordered:: n/a Medication administrations:: Medication Administration History Acetaminophen (Acetaminophen 325 Mg Tablet) 650 mg PO Q4HR PRN PRN Reason: PAIN SCALE 1-3 (mild Stop: 10/10/24 01:24 Acetaminophen (Acetaminophen Supp 650 Mg Supp) 650 mg AL Q4HR PRN PRN Reason: PAIN SCALE 1-3 (mild Stop: 10/10/24 01:24 Al Hydrox/Mg Hydrox/Simethicone (Mg Hyd/Al Hyd/Maday (Maalox Reg) Susp 30 Ml Udc) 30 ml PO Q4HR PRN PRN Reason: Heartburn or Upset Stomach Stop: 10/10/24 01:24 Dextrose (Dextrose 50%-Water Inj 50 Ml Syringe) 25 ml IV Q15MIN PRN PRN Reason: BG 50-70 responsive npo pt Stop: 10/10/24 04:03 Dextrose (Dextrose 50%-Water Inj 50 Ml Syringe) 50 ml IV Q15MIN PRN PRN Reason: BG <50 OR BG <70 & pt unresponsive Stop: 10/10/24 04:03 Heparin Sodium (Porcine) (Heparin Sod Inj 5000 Unit/Ml Vial) 5,000 unit SC Q8HR BRANDON Stop: 09/24/24 05:59 Last Admin: 09/10/24 06:17 Dose: 5,000 unit Documented By: GUADALUPE Co-signed By: GERRI Heparin Sodium (Porcine) (Heparin Sod Inj 1000 Unit/Ml Vial 10 Ml) 2,600 unit INDWELLCAT X1 PRN PRN Reason: DIALYSIS Stop: 09/24/24 05:30 Last Admin: 09/10/24 06:16 Dose: 2,600 unit Documented By: MM Co-signed By: GUADALUPE Norepinephrine Bitartrate (Levophed In Ns 16mg/250ml) 16 mg in 250 mls @ 2.977 mls/hr IV .Q24H PRN; Protocol PRN Reason: PER protocol Stop: 10/09/24 20:16 Last Admin: 09/10/24 10:21 Dose: 0.17 mcg/kg/min, 10.121 mls/hr Documented By: Titration: 09/10/24 10:21 Dose: Infused Documented By: Titration: 09/10/24 10:05 Dose: 0.17 mcg/kg/min, 10.121 mls/hr Documented By: Titration: 09/10/24 10:00 Dose: 0.19 mcg/kg/min, 11.311 mls/hr Documented By: Titration: 09/10/24 09:30 Dose: 0.19 mcg/kg/min, 11.311 mls/hr Documented By: Titration: 09/10/24 09:00 Dose: 0.21 mcg/kg/min, 12.502 mls/hr Documented By: Titration: 09/10/24 08:45 Dose: 0.23 mcg/kg/min, 13.693 mls/hr Documented By: Titration: 09/10/24 08:31 Dose: 0.25 mcg/kg/min, 14.884 mls/hr Documented By: Titration: 09/10/24 08:15 Dose: 0.27 mcg/kg/min, 16.074 mls/hr Documented By: Titration: 09/10/24 08:00 Dose: 0.29 mcg/kg/min, 17.265 mls/hr Documented By: Titration: 09/10/24 07:30 Dose: 0.31 mcg/kg/min, 18.456 mls/hr Documented By: Titration: 09/10/24 07:00 Dose: 0.33 mcg/kg/min, 19.646 mls/hr Documented By: Titration: 09/10/24 06:00 Dose: 0.33 mcg/kg/min, 19.646 mls/hr Documented By: Titration: 09/10/24 05:00 Dose: 0.33 mcg/kg/min, 19.646 mls/hr Documented By: Titration: 09/10/24 04:00 Dose: 0.31 mcg/kg/min, 18.456 mls/hr Documented By: Titration: 09/10/24 03:22 Dose: 0.31 mcg/kg/min, 18.456 mls/hr Documented By: Titration: 09/10/24 03:00 Dose: 0.31 mcg/kg/min, 18.456 mls/hr Documented By: Titration: 09/10/24 02:45 Dose: 0.31 mcg/kg/min, 18.456 mls/hr Documented By: Titration: 09/10/24 02:30 Dose: 0.31 mcg/kg/min, 18.456 mls/hr Documented By: Titration: 09/10/24 02:15 Dose: 0.31 mcg/kg/min, 18.456 mls/hr Documented By: Titration: 09/10/24 02:00 Dose: 0.31 mcg/kg/min, 18.456 mls/hr Documented By: Titration: 09/10/24 01:45 Dose: 0.31 mcg/kg/min, 18.456 mls/hr Documented By: Titration: 09/10/24 01:40 Dose: 0.31 mcg/kg/min, 18.456 mls/hr Documented By: Titration: 09/10/24 01:33 Dose: 0.31 mcg/kg/min, 18.456 mls/hr Documented By: Titration: 09/10/24 01:19 Dose: 0.29 mcg/kg/min, 17.265 mls/hr Documented By: Titration: 09/10/24 01:07 Dose: 0.29 mcg/kg/min, 17.265 mls/hr Documented By: Titration: 09/10/24 01:00 Dose: 0.27 mcg/kg/min, 16.074 mls/hr Documented By: Titration: 09/10/24 00:48 Dose: 0.27 mcg/kg/min, 16.074 mls/hr Documented By: Titration: 09/09/24 23:26 Dose: 0.27 mcg/kg/min, 16.074 mls/hr Documented By: Titration: 09/09/24 23:00 Dose: 0.25 mcg/kg/min, 14.884 mls/hr Documented By: Titration: 09/09/24 22:55 Dose: 0.25 mcg/kg/min, 14.884 mls/hr Documented By: Titration: 09/09/24 22:50 Dose: 0.25 mcg/kg/min, 14.884 mls/hr Documented By: Titration: 09/09/24 22:45 Dose: 0.23 mcg/kg/min, 13.693 mls/hr Documented By: Titration: 09/09/24 22:40 Dose: 0.23 mcg/kg/min, 13.693 mls/hr Documented By: Titration: 09/09/24 22:25 Dose: 0.21 mcg/kg/min, 12.502 mls/hr Documented By: Titration: 09/09/24 21:55 Dose: 0.21 mcg/kg/min, 12.502 mls/hr Documented By: Titration: 09/09/24 21:50 Dose: 0.21 mcg/kg/min, 12.502 mls/hr Documented By: Titration: 09/09/24 21:45 Dose: 0.19 mcg/kg/min, 11.311 mls/hr Documented By: Titration: 09/09/24 21:30 Dose: 0.19 mcg/kg/min, 11.311 mls/hr Documented By: Titration: 09/09/24 21:15 Dose: 0.19 mcg/kg/min, 11.311 mls/hr Documented By: Titration: 09/09/24 21:10 Dose: 0.19 mcg/kg/min, 11.311 mls/hr Documented By: Titration: 09/09/24 21:05 Dose: 0.19 mcg/kg/min, 11.311 mls/hr Documented By: Titration: 09/09/24 21:00 Dose: 0.19 mcg/kg/min, 11.311 mls/hr Documented By: Titration: 09/09/24 20:55 Dose: 0.17 mcg/kg/min, 10.121 mls/hr Documented By: Titration: 09/09/24 20:50 Dose: 0.17 mcg/kg/min, 10.121 mls/hr Documented By: Titration: 09/09/24 20:45 Dose: 0.15 mcg/kg/min, 8.93 mls/hr Documented By: Titration: 09/09/24 20:40 Dose: 0.13 mcg/kg/min, 7.739 mls/hr Documented By: Titration: 09/09/24 20:35 Dose: 0.11 mcg/kg/min, 6.549 mls/hr Documented By: Titration: 09/09/24 20:30 Dose: 0.09 mcg/kg/min, 5.358 mls/hr Documented By: Titration: 09/09/24 20:25 Dose: 0.07 mcg/kg/min, 4.167 mls/hr Documented By: Admin: 09/09/24 20:20 Dose: 0.05 mcg/kg/min, 2.977 mls/hr Documented By: KG Vasopressin/Sodium Chloride (Vasostrict/Ns Ivpb) 20 unit in 100 mls @ 9 mls/hr IV .Q11H7M PRN; Protocol PRN Reason: PER PROTOCOL Stop: 10/10/24 01:06 Last Admin: 09/10/24 10:22 Dose: 0.03 unit/min, 9 mls/hr Documented By: Titration: 09/10/24 10:22 Dose: Infused Documented By: Admin: 09/10/24 01:23 Dose: 0.03 unit/min, 9 mls/hr Documented By: BRITTNEY Phenylephrine HCl 40 mg/ (Sodium Chloride) 100 mls @ 4.763 mls/hr IV .Q21H PRN; Protocol PRN Reason: Per Sepsis Protocol Stop: 10/10/24 01:37 Azithromycin 500 mg/ Sodium (Chloride) 250 mls @ 250 mls/hr IV QDAY BRANDON Stop: 09/18/24 08:59 Albumin Human (Albuminar-25 Ivpb) 25 gm in 100 mls @ 100 mls/min IV PRN PRN PRN Reason: DIALYSIS Piperacillin/Tazobactam/Dextrose (Zosyn) 3.375 gm in 50 mls @ 12.5 mls/hr IV Q12HR [facility] Stop: 09/17/24 20:59 Insulin Human Lispro (Insulin Lispro (Admelog) 1 Unit/0.01 Ml Unit) 0 unit SC Q6HR BRANDON; Protocol Stop: 10/10/24 05:59 Last Admin: 09/10/24 06:13 Dose: Not Given Documented By: CMN Non-Admin Reason: NPO Levetiracetam (Levetiracetam Inj 100 Mg/Ml Vial 5ml) 500 mg IVP Q12HR [facility] Stop: 10/10/24 08:59 Last Admin: 09/10/24 09:52 Dose: 500 mg Documented By: LU Magnesium Hydroxide (Milk Of Magnesia Susp 30 Ml Udc) 30 ml PO QDAY PRN PRN Reason: CONSTIPATION Stop: 10/10/24 01:24 Ondansetron HCl (Ondansetron Inj 2 Mg/Ml Inj 2 Ml) 4 mg IV Q6HR PRN PRN Reason: NAUSEA OR VOMITING Stop: 10/10/24 01:24 Discontinued Medications Calcium Gluconate (Calcium Gluconate 10% Inj 1 Gm/10 Ml Vial) 1 gm IV X1 ONE Stop: 09/09/24 20:40 Last Admin: 09/09/24 20:58 Dose: 1 gm Documented By: KG Dextrose (Dextrose 50%-Water Inj 50 Ml Syringe) 25 ml IV Q15MIN PRN PRN Reason: BG 50-70 responsive npo pt Stop: 10/09/24 19:50 Dextrose (Dextrose 50%-Water Inj 50 Ml Syringe) 50 ml IV X1 ONE Stop: 09/10/24 00:14 Last Admin: 09/10/24 00:34 Dose: 50 ml Documented By: BRITTNEY Furosemide (Furosemide Inj 10 Mg/Ml Vial 2 Ml) 20 mg IVP X1 ONE Stop: 09/09/24 20:45 Last Admin: 09/09/24 20:58 Dose: 20 mg Documented By: KG Hydromorphone HCl (Hydromorphone Inj 2 Mg/Ml Vial) 0.5 mg IVP Q4HR PRN PRN Reason: PAIN Stop: 09/15/24 01:54 Hydromorphone HCl (Hydromorphone Inj 2 Mg/Ml Vial) 0.5 mg IVP X1 ONE Stop: 09/10/24 02:17 Last Admin: 09/10/24 06:07 Dose: Not Given Documented By: GUADALUPE Non-Admin Reason: Contraindicated Naloxone HCl 0.4 mg/ Dextrose 498.4 mls @ 10 mls/hr IV .Q24H [facility] Stop: 10/09/24 17:44 Last Admin: 09/09/24 17:56 Dose: Not Given Documented By: NELY Non-Admin Reason: Discontinued Lactated Ringer's (Lactated Ringers) 1,000 mls @ 999 mls/hr IV .Q1H1M ONE Stop: 09/09/24 19:17 Last Infusion: 09/09/24 19:23 Dose: Infused Documented By: Admin: 09/09/24 18:22 Dose: 999 mls/hr Documented By: NELY Sodium Bicarbonate 88.23 meq/ (Dextrose) 588.23 mls @ 125 mls/hr IV .Q4H43M [facility] Stop: 10/10/24 10:54 Sodium Bicarbonate 88.23 meq/ (Dextrose) 588.23 mls @ 125 mls/hr IV .Q4H43M [facility]ON Stop: 09/10/24 10:54 Last Admin: 09/10/24 01:48 Dose: 125 mls/hr Documented By: BRITTNEY Ceftriaxone Sodium/Dextrose (Rocephin/D5w 1gm Iv Premix) 1 gm in 50 mls @ 100 mls/hr IV QDAY@2100 [facility] Stop: 09/17/24 20:59 Ceftriaxone Sodium/Dextrose (Rocephin/D5w 1gm Iv Premix) 1 gm in 50 mls @ 100 mls/hr IV X1 ONE Stop: 09/10/24 02:14 Last Infusion: 09/10/24 02:13 Dose: Infused Documented By: Admin: 09/10/24 01:43 Dose: 100 mls/hr Documented By: BRITTNEY Lactated Ringer's (Lactated Ringers) 1,000 mls @ 999 mls/hr IV .Q1H1M ONE Stop: 09/10/24 02:40 Last Infusion: 09/10/24 02:38 Dose: Infused Documented By: Admin: 09/10/24 01:43 Dose: 999 mls/hr Documented By: BRITTNEY Azithromycin 500 mg/ Sodium (Chloride) 250 mls @ 250 mls/hr IV X1 ONE Stop: 09/10/24 04:44 Last Admin: 09/10/24 04:43 Dose: 250 mls/hr Documented By: GUADALUPE Piperacillin/Tazobactam/Dextrose (Zosyn) 3.375 gm in 50 mls @ 100 mls/hr IV X1 ONE Stop: 09/10/24 07:29 Last Admin: 09/10/24 10:31 Dose: 100 mls/hr Documented By: LU Lactated Ringer's (Lactated Ringers) 500 mls @ 999 mls/hr IV .Q31M ONE Stop: 09/10/24 10:45 Last Admin: 09/10/24 10:24 Dose: 999 mls/hr Documented By: LU Insulin Human Regular (Insulin Hum Regular 1 Unit/0.01 Ml (Per Unit)) 5 unit IV X1 ONE Stop: 09/10/24 00:12 Last Admin: 09/10/24 00:31 Dose: 5 unit Documented By: AC Co-signed By: EF Levetiracetam (Levetiracetam 250 Mg Tablet) 500 mg PO BID BRANDON Stop: 10/10/24 08:59 Naloxone HCl (Naloxone Inj 0.4 Mg/Ml Vial) Confirm Administered Dose 0.4 mg .ROUTE .STK-MED ONE Stop: 09/09/24 17:12 Last Admin: 09/09/24 17:40 Dose: Not Given Documented By: NELY Non-Admin Reason: Duplicate Medication on eMAR Naloxone HCl (Naloxone Inj 0.4 Mg/Ml Vial) 0.04 mg IV X1 ONE Stop: 09/09/24 17:31 Last Admin: 09/09/24 17:40 Dose: Not Given Documented By: NELY Non-Admin Reason: Discontinued Naloxone HCl (Naloxone Inj 0.4 Mg/Ml Vial) 0.4 mg IV X1 ONE Stop: 09/09/24 18:01 Last Admin: 09/09/24 17:48 Dose: 0.4 mg Documented By: NELY Co-signed By: RD Naloxone HCl (Naloxone Inj 1 Mg/Ml Syringe 2 Ml) 0.4 mg IV X1 ONE Stop: 09/10/24 09:50 Last Admin: 09/10/24 09:52 Dose: 0.4 mg Documented By: LU Sodium Chloride (Sodium Chloride Rt 10% 15 Ml Nebu) 5 ml INH X1 ONE Stop: 09/10/24 05:44 Last Admin: 09/10/24 10:32 Dose: Not Given Documented By: LU Non-Admin Reason: RT as stated Consultations Consultation(s) initiated? (list below): Yes Consultation #1 (Physician, Specialty, Details): [id number] spoke with teleneuro, unlikely for stroke, no intervention need, CTA pending Consultation #2 (Physician, Specialty, Details): [address] Mckeon will come in for consult Consultation #3 (Physician, Specialty, Details): [address] Liang will come in for consult, renal and treatment for hyperkalemia, Lentz is placed 1950 Dr. becker will accept patient for admission. 1118 review chart, admission to ICU, CT abd/chest; No thoracic aortic aneurysm dilatation Pulmonary artery segments are not enlarged Soft opacities in the lingular segment left lower lobe consistent with pneumonia No pleural disease No visualized liver or splenic lesion Perinephric stranding Absent gallbladder No pancreatic mass IVC filter No bowel obstruction No free air Urinary bladder contracted around a Lentz catheter No pericecal inflammatory change Grade 2 anterolisthesis L4 on L5 Chronic osteoporotic compression T12 IMPRESSION: Pneumonia in the lingular segment and left lower lobe Diagnosis Differential diagnosis altered mental status: alcoholic intoxication, altered mental status, delirium, hypoglycemia, hyponatremia, subarachnoid hemorrhage, sepsis and other (dehydration, electrolyte imbalance, drug adverse reaction, anemia, ) Most likely diagnosis given after review of the tests above:: hypotension, alter mental status , kidney injury, hyperkalemia Admission Indicated Admission indicated?: indicated Admission Request Was there a request for admission?: Yes Admission Attestation Admission request attestation: Discussed case with [becker] from Hospitalist service regarding admission. Discussed patients ED course, exam findings, labs, and radiology results. The Hospitalist [agrees,] to accept the patient for admission. Disposition Plan Disposition Plan: Admit Critical Care Time Critical Care Time Attestation: Critical Care Time: This patient required the highest level of my preparedness for sudden and emergent intervention. I provided critical care services, which included ordering, reviewing, and interpreting of laboratory studies in real time. Determining immediate treatments, planning for future treatments and observing response to therapy. Further diagnostic tests and treatments were made based on laboratory studies and response to therapy. I coordinated care with various consultants. This critical care time is separate from any other billable procedures or interventions. The critical care time associated with this patient encounter is [30 ] minutes. Organ Systems at risk of failure include: Discharge Plan Plan Patient Disposition: Admit Acute Care w/in Hospital Problem List Clinical Impression: Acute hypotension, Altered mental status, Acute kidney failure, Pneumonia, Acute hyperkalemia
[2024-09-09 17:56] LABS: INR 1.2 (0.9-1.3); Partial Thromboplastin Time 36.5 Seconds (22.0-36.0)
[2024-09-09] MEDS: RINGERS LACTATED 1000 ML 1,000 ML 999 ML IV (18:22)
--- NOTE | 2024-09-09 18:55 | PC.NURSE ---
IN AND OUT COLLECTED AND SENT TO LAB
[2024-09-09 19:22] LABS: Alanine Aminotransferase 109 U/L (10-49); Albumin, Serum 3.4 gm/dL (3.4-4.8); Albumin/Globulin Ratio 1.6 (1.2-2.2); Alkaline Phosphatase 161 U/L (46-116); Anion Gap 28 (7-16); Aspartate Amino Transferase 149 U/L (0-34); BUN/Creatinine Ratio 17 Ratio (12-20); Bilirubin,Total 0.5 mg/dL (0.3-1.2); Calcium 7.1 mg/dL (8.3-10.6); Calcium (Corrected) 7.6 mg/dL (8.5-10.1); Chloride 96 mMol/L (98-107); Creatinine (Component) 7.2 mg/dL (0.6-1.3); Estimated Creatinine Clearance 9.8 mL/min (>60); Globulin 2.1 gm/dL (2.3-3.5); Glucose 201 mg/dL (74-106); Magnesium 2.4 mg/dL (1.6-2.6); Osmolality,Calculated 312 (275-295); Sodium 134 mMol/L (136-145); Total Protein 5.5 gm/dL (5.7-8.2); Troponin I < 0.020 ng/mL (0.0-0.045); eGFR 8 See Note
[2024-09-09 19:30] LABS: Blood Urea Nitrogen 119 mg/dL (9-23)
[2024-09-09 19:32] LABS: Carbon Dioxide < 10.0 mMol/L (20.0-31.0); Potassium 6.1 mMol/L (3.4-5.1)
--- NOTE | 2024-09-09 19:35 | PC.NURSE ---
MILKA Canchola called to the bedside. Pt has several abnormal labs that were provided to and has a MAP of 53. No further orders received at this time.
[2024-09-09 19:42] LABS: Collection Type, Urine Voided
--- NOTE | 2024-09-09 19:42 | XR_ITS ---
Examination: Retroperitoneal ultrasound, complete Technique: Multiple high resolution grayscale images of the retroperitoneum obtained, including kidneys and bladder. Exam date and time:September 09, 2024, 1954 hours INDICATIONS: Acute renal insufficiency on laboratory examination today FINDINGS: Right kidney 8.8 cm cortex 1.9 cm Left kidney 9.1 cm cortex 1.5 cm Moderate bilateral renal parenchymal scar formation, no hydronephrosis Bilateral contracted around a Lentz catheter, bladder wall thickening 8 mm Prostatomegaly 53.6 cc no prostate nodules IMPRESSION: Bilateral renal cortical thinning Small kidneys Moderate bilateral renal parenchymal scarring relation Significant prostatomegaly
[2024-09-09 19:49] LABS: Bilirubin,Urine Negative (Negative); Blood,Urine Trace (Negative); Clarity,Urine Turbid (Clear/Hazy); Color,Urine Yellow (Lt Yel-Yel); Glucose, Urine 4+ (Negative); Ketones,Urine Trace (Negative); Leukocyte Esterase,Urine Negative (Negative); Nitrite,Urine Negative (Negative); Protein,Urine 1+ (Neg - Trace); RBC,Urine 1 /hpf (0-3); Specific Gravity,Urine 1.018 (1.001-1.035); Squamous Epithelial Cell,Urine 3 /hpf (0-5); Urobilinogen,Urine Negative mg/dL (0.0-1.0); WBC,Urine 5 /hpf (0-5)
--- NOTE | 2024-09-09 20:02 | XR_ITS ---
Examination: AP chest single view TECHNIQUE: AP portable supine chest single view Exam date and time: September 09, 2024 1930 hours Comparison July 15, 2024 INDICATIONS: Altered mental status today FINDINGS: Prominent pneumonia left base Prominent elevation right hemidiaphragm No significant cardiac enlargement IMPRESSION: Prominent left base pneumonia
--- NOTE | 2024-09-09 20:17 | PC.NURSE ---
Dr. Syed admitting patient and informed of current blood pressure. Previous RN Anjelica stated in hand off that she administered 3x 1000mL fluid boluses to pt. At time of report, I visualized 2 liter bags hanging simultaneously, however only 1L was charted. Family at the bedside state they witnessed 3 liters infuse in the patient. Dr. Syed informed of above info.
[2024-09-09] MEDS: Norepinephrine/NS 16mg/250ml 16 MG/250 ML BAG 2.977 MG IV (20:20)
--- NOTE | 2024-09-09 20:26 | PC.NURSE ---
RT at the bedside attempting ABG. Admitting resident at the bedside.
--- NOTE | 2024-09-09 20:46 | XR_ITS ---
Examination: CT chest, without intravenous contrast. CT abdomen, without intravenous contrast. CT pelvis, without intravenous contrast. 2-D sagittal and coronal reconstructions. 3-D reconstructions. Date and time of exam:September 09, 2024 10:10 PM INDICATIONS: Severe abdominal pain shortness of breath today CTDI vol (mgy) 11.8 DLP (MGycm)779 Technique: Multiple CT images, 3.0 mm slice thickness, obtained chest, abdomen, pelvis, with the high-resolution 64 slice scanner.. Sagittal and coronal 2-D reconstructions are obtained. 3-D reconstructions Low dose protocols were performed. One or more of the following dose reduction techniques were used; automated exposure control, adjustment of the mA and/or KV according to patient size, use of iterative reconstruction technique. Findings: No thoracic aortic aneurysm dilatation Pulmonary artery segments are not enlarged Soft opacities in the lingular segment left lower lobe consistent with pneumonia No pleural disease No visualized liver or splenic lesion Perinephric stranding Absent gallbladder No pancreatic mass IVC filter No bowel obstruction No free air Urinary bladder contracted around a Lentz catheter No pericecal inflammatory change Grade 2 anterolisthesis L4 on L5 Chronic osteoporotic compression T12 IMPRESSION: Pneumonia in the lingular segment and left lower lobe
[2024-09-09 20:48] LABS: Amphetamine/Methamp Scrn,U Negative (Negative); Barbiturate Screen,Urine Negative (Negative); Benzodiazepines Screen,Urine Negative (Negative); Benzoylecgonine Screen, Ur Negative (Negative); Fentanyl Screen,Urine Negative (Negative); Opiate Screen,Urine Positive (Negative); THC Screen,Urine Negative (Negative)
[2024-09-09 20:50] LABS: Lactate (Lactic Acid) 1.5 mMol/L (0.4-2.0)
[2024-09-09] MEDS: FUROSEMIDE INJ 10 MG/ML VIAL 2 ML 20 MG IVP (20:58)
[2024-09-09] MEDS: CALCIUM GLUCONATE 10% INJ 1 GM/10 ML VIAL IV (20:58)
[2024-09-09 21:19] LABS: Base Excess, Venous -23 (-3-3); O2 Saturation, Venous 76 % (96-97); PCO2, Venous 22 mmHg (36-56); PO2, Venous 55 mmHg (15-58); pH, Venous 7.05 (7.33-7.66)
[2024-09-09 22:21] LABS: Procalcitonin 2.07 ng/ml (0.0-0.49)
--- NOTE | 2024-09-09 22:26 | PC.NURSE ---
Pt takeen to CT by this RN while on portable monitor. Pt tolerated well.
[2024-09-09 23:36] LABS: Chloride 98 mMol/L (98-107); Sodium 136 mMol/L (136-145)
[2024-09-09 23:37] LABS: Anion Gap 28 (7-16); BUN/Creatinine Ratio 17 Ratio (12-20); Blood Urea Nitrogen 117 mg/dL (9-23); Calcium 7.4 mg/dL (8.3-10.6); Estimated Creatinine Clearance 10.1 mL/min (>60); Glucose 180 mg/dL (74-106); Osmolality,Calculated 314 (275-295); eGFR 8 See Note
[2024-09-09 23:39] LABS: Carbon Dioxide < 10.0 mMol/L (20.0-31.0); Potassium 6.1 mMol/L (3.4-5.1)
--- NOTE | 2024-09-09 23:46 | PC.NURSE ---
repositioned pt, vs taken. rectal temp 94.7. RN notified. pt given warm blankets
--- NOTE | 2024-09-09 23:57 | PD.NEUROCONS ---
History of Present Illness Data of Consult Primary Care Provider: Physician No Primary/Family Consult Narrative cc:: cc: Review of Systems Review of Systems ROS Unobtainable: unobtainable due to mental status Past Medical History Past Medical History NEUROLOGIC: Positive Neurological Disorders, Seizures (last episode 2-3 years ago) and Epilepsy; Negative Transient Ischemic Attacks (TIA) CARDIAC: Positive Deep Vein Thrombosis and Hypertension; Negative Cardiac Disorders or Congestive Heart Failure RESPIRATORY: Positive Pulmonary Embolism; Negative Chronic Obstructive Pulmonary Disease (COPD), Asthma, Bronchitis or Pneumonia GASTROINTESTINAL: Positive Gastrointestinal Disorders, Gastrointestinal Bleed and Gastroesophageal Reflux Disease GENITOURINARY: Positive Genitourinary Disorders and Renal Disease MUSCULOSKELETAL: Positive Musculoskeletal Disorders, Arthritis, Osteoporosis and Fractures ENDOCRINE: Positive Endocrine Disorders and Diabetes Mellitus Type 2; Negative Diabetes Mellitus Type 1 HEMATOLOGIC: Positive Anemia and Clotting Problems; Negative Blood Disorders or Sickle Cell Disease OTHER HISTORY: Positive Hospitalization, Falls and Blood Transfusions; Negative Autoimmune Disease, Down Syndrome, Developmental Delay, Shingles, Blood Transfusion Reaction, Anesthesia Reactions, MRSA, Clostridium Difficile or Cancer Family History FAMILY HISTORY: Positive Family Cardiac Disorders and Family Cancer Surgical History SURGICAL: Positive Abdominal Surgery and Gastric Bypass Surgery; Negative Cardiac Surgery OTHER SURGICAL HX: As in the history of present illness Social History SMOKING STATUS: Never smoker SECOND HAND EXPOSURE: No SUBSTANCE USE: does not use Meds Home Medications and Allergies Home Medications ?Medication ?Instructions ?Recorded ?Confirmed ?Type ramipril 10 mg capsule (Altace) 10 mg PO QDAY 05/22/19 09/09/24 History oxycodone 30 mg tablet (Roxicodone) 30 mg PO 4XD PRN Pain 01/04/22 09/09/24 History ondansetron HCl 8 mg tablet 8 mg PO DAILY PRN Nausea 09/22/22 09/09/24 History naloxone 4 mg/actuation nasal 1 spray intranasal Q2M PRN 12/10/22 09/09/24 History spray (Narcan) Respiratory Distress levetiracetam 500 mg tablet 500 mg PO BID 07/18/23 09/09/24 History potassium chloride 10 mEq 10 meq PO PRN PRN when taking lasix 07/19/23 09/09/24 History tablet,extended release propranolol 10 mg tablet 10 mg PO BID 07/19/23 09/09/24 History finerenone 10 mg tablet (Kerendia) 10 mg PO QDAY 04/03/24 09/09/24 History Allergies Allergy/AdvReac Type Severity Reaction Status Date / Time ibuprofen AdvReac Severe gastric Verified 09/09/24 16:47 bypass Exam - Neurology Vital Signs Temp Pulse Resp BP Pulse Ox O2 Del Method 94.7 F L 100 22 H 93/54 L 100 Room Air 09/09/24 23:36 09/09/24 23:36 09/09/24 23:36 09/09/24 23:36 09/09/24 23:36 09/09/24 23:36 Narrative Exam GENERAL APPEARANCE: Well-developed, well-nourished in no acute distress. HEENT: Normocephalic, atraumatic, extraocular movements intact. Pupils: Equal reacting to light NECK: Supple, no JVD or bruits. CARDIOVASULAR: Heart: S1, S2 heard, regular without S3-S4 or murmur no rubs or gallops. LUNGS/CHEST: Clear to auscultation bilaterally. No rails, rhonchi, or wheezing. Normal inspection. ABDOMEN: Soft, nontender, with normal bowel sounds. No pulsatile masses. No rebound, rigidity, or guarding. Normal inspection and palpation. EXTREMITIES: Normal inspection and palpation. No edema, clubbing or cyanosis. SKIN: Warm and dry without rashes. Normal inspection. MUSCULOSKELETAL: No cervical, thoracic, lumbar or midline bony tenderness. Normal inspection. NEURO: Lethargic but arousable, answers questions but perseverating. Cranial nerves: II through XII grossly intact. Speech and language: Normal with no dysarthria or dysphasia. Motor system: Tone and bulk: Normal: Strength: Moves all 4 extremities; No pronator drift noted. Deep tendon reflexes: 1+ bilaterally symmetrical. Plantar reflex: Downgoing bilaterally. Sensory system: Intact to pinprick sensation bilaterally. Gait: Not tested. No signs of meningeal irritation noted. PSYCHIATRIC: Normal mood and affect. Results Labs 09/10/24 04:51 09/10/24 04:51 Labs: Short CBC 09/09/24 Range/Units 17:36 WBC 10.4 (3.8-10.6) Thou/mm3 Hgb 9.7 L (13.5-16.0) g/dL Hct 32.4 L (41.0-53.0) % Plt Count 303 (140-440) Thou/mm3 BMP 09/09/24 09/09/24 18:25 22:51 Sodium 134 L 136 Potassium 6.1 H* 6.1 H* Chloride 96 L 98 Carbon Dioxide < 10.0 L* < 10.0 L* BUN 119 H* 117 H* Creatinine 7.2 H* 7.0 H* Glucose 201 H 180 H Calcium 7.1 L 7.4 L Cardiac Enzymes 09/09/24 Range/Units 18:25 Troponin I < 0.020 (0.0-0.045) ng/mL Liver Function 09/09/24 Range/Units 18:25 Total Bilirubin 0.5 (0.3-1.2) mg/dL AST 149 H (0-34) U/L ALT 109 H (10-49) U/L Alkaline Phosphatase 161 H (46-116) U/L Albumin 3.4 (3.4-4.8) gm/dL Urine 09/09/24 Range/Units 19:07 Urine Color Yellow (Lt Yel-Yel) Urine Clarity Turbid A (Clear/Hazy) Urine pH 5.0 (5.0-7.0) Ur Specific Taylor 1.018 (1.001-1.035) Urine Protein 1+ A (Neg - Trace) Urine Glucose (UA) 4+ A (Negative) ABG Interpretation ABG results: 09/09/24 20:24 ABG pH Cancelled ABG pCO2 Cancelled ABG pO2 Cancelled ABG HCO3 Cancelled ABG O2 Saturation Cancelled ABG Base Excess Cancelled VBG pH 7.05 L VBG pCO2 22 L VBG pO2 55 VBG Base Excess -23 L Assessment & Plan Assessment and plan (1) Altered mental status: Status: Acute Assessment and plan: Most likely metabolic Continue to follow labs closely and treat accordingly per primary team Watch for any breakthrough seizures (2) Acute hypotension: Status: Acute Assessment and plan: Improved with IV fluid boluses Sepsis management per primary team (3) Seizure disorder: Status: Chronic Assessment and plan: Continue with Kartik
[2024-09-10] VITALS (96 sets, daily range): BP systolic 80–133; BP diastolic 40–91; PULSE 83–115; RESP 6–100; TEMP 35.9–37.1; O2SAT 81–100
[2024-09-10] MEDS: INSULIN HUM REGULAR 1 UNIT/0.01 ML (PER UNIT) 5 UNIT IV (00:31)
[2024-09-10] MEDS: DEXTROSE 50%-WATER INJ 50 ML SYRINGE IV (00:34)
--- NOTE | 2024-09-10 00:54 | XR_ITS ---
Examination: AP chest single view Technique one AP portable supine chest single view Exam date and time: September 10, 2024 0015 hours Comparison September 09, 2024 INDICATIONS: Post central line placement FINDINGS: Significant pneumonia left base Normal heart size Prominent elevation right hemidiaphragm Right internal jugular central line tip SVC satisfactory position IMPRESSION: Right internal jugular central line tip SVC satisfactory position No pneumothorax
--- NOTE | 2024-09-10 01:22 | PD.RESHP ---
Documentation for date of: 09/10/24 HPI History of Present Illness Chief complaint: Acute encephalopathy History of present illness: 59-year-old male patient with PMHx significant for PE/DVT on Eliquis, Hx of PUD with GI bleed requiring transfusions, IDDM I, Katherine-en-Y gastric bypass (2007), and hx of seizures on Keppra BIBA from home for complaint of altered mentation that started on day prior, patient is accompanied by his daughter Maria E who provides history for patient. Patient was noted to be laying in bed all day and when asked how he was doing he stated that he has no pain, fever, chills, or sob but stated that he was feeling weak before becoming altered in the afternoon and requiring assistance to ambulate. Daughter notes decreased oral intake and minimal fluid consumption over the past few days, he has history of opioid use for all body pain but has no access to medication which is monitored by his daughter. She reports his last dose of Oxycodone was taken on morning prior to admission. Initially at ED patient was hemodynamically stable, nonfebrile later on patient became hypotensive with MAP as low as 50. Patient was given a dose of Narcan as his pupils were pinpoint and had a GCS of 3 but no improvement in his mentation was noted, and later stroke alert was called with tele-neuro consult. Head CT was negative and patient's labs were noted for Hgb 9.7, K 6.1, HCO3 <10, AG 28, BUN 117, Cr 7.2, C.Ca 7.6,, AST 149, ALT 109, Pro-Sarmad 2.07. Nephrology were consulted by ED after patient received 2 L of IV fluid with minimal urine output and an unchanged renal panel for which they recommended admitting patient for emergent dialysis. Patient was started on vasopressors in ED along with ceftriaxone/azithromycin for chest CT showing findings consistent with pneumonia, patient was admitted to ICU for further evaluation and care. Medical Hx: as above Surgical Hx: Gastric bypass, left femur surgery, IVC filter Medication: Ramipril 10 mg twice daily, Eliquis 2.5 mg twice daily, propranolol 10 mg twice daily, Keppra 500 mg twice daily, Zofran 8 mg as needed, oxycodone Social Hx: Denies smoking cigarettes, drinking alcohol or using other illicit drugs, lives in [place] with daughter Allergies: NKDA Review of Systems Review of Systems ROS Unobtainable: unobtainable due to mental status Past Medical History Past Medical History NEUROLOGIC: Positive Neurological Disorders, Seizures (last episode 2-3 years ago) and Epilepsy; Negative Transient Ischemic Attacks (TIA) CARDIAC: Positive Deep Vein Thrombosis and Hypertension; Negative Cardiac Disorders or Congestive Heart Failure RESPIRATORY: Positive Pulmonary Embolism; Negative Chronic Obstructive Pulmonary Disease (COPD), Asthma, Bronchitis or Pneumonia GASTROINTESTINAL: Positive Gastrointestinal Disorders, Gastrointestinal Bleed and Gastroesophageal Reflux Disease GENITOURINARY: Positive Genitourinary Disorders and Renal Disease MUSCULOSKELETAL: Positive Musculoskeletal Disorders, Arthritis, Osteoporosis and Fractures ENDOCRINE: Positive Endocrine Disorders and Diabetes Mellitus Type 2; Negative Diabetes Mellitus Type 1 HEMATOLOGIC: Positive Anemia and Clotting Problems; Negative Blood Disorders or Sickle Cell Disease OTHER HISTORY: Positive Hospitalization, Falls and Blood Transfusions; Negative Autoimmune Disease, Down Syndrome, Developmental Delay, Shingles, Blood Transfusion Reaction, Anesthesia Reactions, MRSA, Clostridium Difficile or Cancer Family History FAMILY HISTORY: Positive Family Cardiac Disorders and Family Cancer Surgical History SURGICAL: Positive Abdominal Surgery and Gastric Bypass Surgery; Negative Cardiac Surgery OTHER SURGICAL HX: As in the history of present illness Social History SMOKING STATUS: Never smoker SECOND HAND EXPOSURE: No SUBSTANCE USE: does not use Exam Vital Signs Temp Pulse Resp BP Pulse Ox O2 Del Method 94.7 F L 102 H 18 97/58 L 100 Room Air 09/09/24 23:36 09/10/24 00:47 09/10/24 00:47 09/10/24 00:47 09/10/24 00:47 09/09/24 23:36 Narrative Exam GEN: Critically ill, in acute distress, alert and oriented to name and only. HEENT: NCAT, trachea midline, dry mucous membranes, pupils equal and reactive to light. CVS: Tachycardic, S1S2 present, no M/R/G. No JVD. Respi: Left base coarse breath sounds with absent right base breath sounds. Normal respiratory rate and effort. ABD: Soft, tender to palpation with guarding, bowel sounds present. Neuro: AAO to name and only, follows command, no focal neuro deficits noted, able to move all 4 extremities. Skin: warm, dry and intact. Extremities: warm to touch, no edema/cyanosis, peripheral pulses 1+. Results: Labs 09/10/24 04:51 09/10/24 04:51 Labs: Short CBC 09/09/24 Range/Units 17:36 WBC 10.4 (3.8-10.6) Thou/mm3 Hgb 9.7 L (13.5-16.0) g/dL Hct 32.4 L (41.0-53.0) % Plt Count 303 (140-440) Thou/mm3 BMP 09/09/24 09/09/24 18:25 22:51 Sodium 134 L 136 Potassium 6.1 H* 6.1 H* Chloride 96 L 98 Carbon Dioxide < 10.0 L* < 10.0 L* BUN 119 H* 117 H* Creatinine 7.2 H* 7.0 H* Glucose 201 H 180 H Calcium 7.1 L 7.4 L Cardiac Enzymes 09/09/24 Range/Units 18:25 Troponin I < 0.020 (0.0-0.045) ng/mL Liver Function 09/09/24 Range/Units 18:25 Total Bilirubin 0.5 (0.3-1.2) mg/dL AST 149 H (0-34) U/L ALT 109 H (10-49) U/L Alkaline Phosphatase 161 H (46-116) U/L Albumin 3.4 (3.4-4.8) gm/dL Urine 09/09/24 Range/Units 19:07 Urine Color Yellow (Lt Yel-Yel) Urine Clarity Turbid A (Clear/Hazy) Urine pH 5.0 (5.0-7.0) Ur Specific Barton 1.018 (1.001-1.035) Urine Protein 1+ A (Neg - Trace) Urine Glucose (UA) 4+ A (Negative) ABG Interpretation ABG results: 09/09/24 20:24 ABG pH Cancelled ABG pCO2 Cancelled ABG pO2 Cancelled ABG HCO3 Cancelled ABG O2 Saturation Cancelled ABG Base Excess Cancelled VBG pH 7.05 L VBG pCO2 22 L VBG pO2 55 VBG Base Excess -23 L Quality Measures Quality Measures sepsis Current suspected stage: septic shock (LA >4 and/or hypotension) Sepsis reassessment completed at (date): 09/10/24 Sepsis reassessment completed at (time): 06:22 Possible source: pulmonary Blood cultures ordered: yes Antibiotic ordered: Yes Medications Home Medications and Allergies Home Medications ?Medication ?Instructions ?Recorded ?Confirmed ?Type ramipril 10 mg capsule (Altace) 10 mg PO QDAY 05/22/19 09/09/24 History oxycodone 30 mg tablet (Roxicodone) 30 mg PO 4XD PRN Pain 01/04/22 09/09/24 History ondansetron HCl 8 mg tablet 8 mg PO DAILY PRN Nausea 09/22/22 09/09/24 History naloxone 4 mg/actuation nasal 1 spray intranasal Q2M PRN 12/10/22 09/09/24 History spray (Narcan) Respiratory Distress levetiracetam 500 mg tablet 500 mg PO BID 07/18/23 09/09/24 History potassium chloride 10 mEq 10 meq PO PRN PRN when taking lasix 07/19/23 09/09/24 History tablet,extended release propranolol 10 mg tablet 10 mg PO BID 07/19/23 09/09/24 History finerenone 10 mg tablet (Kerendia) 10 mg PO QDAY 04/03/24 09/09/24 History Allergies Allergy/AdvReac Type Severity Reaction Status Date / Time ibuprofen AdvReac Severe gastric Verified 09/09/24 16:47 bypass Visit Medications Dextrose (Dextrose 50%-Water Inj 50 Ml Syringe) 25 ml IV Q15MIN PRN PRN Reason: BG 50-70 responsive npo pt Stop: 10/09/24 19:50 Norepinephrine Bitartrate (Levophed In Ns 16mg/250ml) 16 mg in 250 mls @ 2.977 mls/hr IV .Q24H PRN; Protocol PRN Reason: PER protocol Stop: 10/09/24 20:16 Last Titration: 09/10/24 01:19 Dose: 0.29 mcg/kg/min, 17.265 mls/hr Vasopressin/Sodium Chloride (Vasostrict/Ns Ivpb) 20 unit in 100 mls @ 9 mls/hr IV .Q11H7M PRN; Protocol PRN Reason: PER PROTOCOL Stop: 10/10/24 01:06 Sodium Bicarbonate 88.23 meq/ (Dextrose) 588.23 mls @ 125 mls/hr IV .Q4H43M BRANDON Stop: 10/10/24 01:20 Discontinued Medications Calcium Gluconate (Calcium Gluconate 10% Inj 1 Gm/10 Ml Vial) 1 gm IV X1 ONE Stop: 09/09/24 20:40 Last Admin: 09/09/24 20:58 Dose: 1 gm Dextrose (Dextrose 50%-Water Inj 50 Ml Syringe) 50 ml IV X1 ONE Stop: 09/10/24 00:14 Last Admin: 09/10/24 00:34 Dose: 50 ml Furosemide (Furosemide Inj 10 Mg/Ml Vial 2 Ml) 20 mg IVP X1 ONE Stop: 09/09/24 20:45 Last Admin: 09/09/24 20:58 Dose: 20 mg Naloxone HCl 0.4 mg/ Dextrose 498.4 mls @ 10 mls/hr IV .Q24H BRANDON Stop: 10/09/24 17:44 Last Admin: 09/09/24 17:56 Dose: Not Given Lactated Ringer's (Lactated Ringers) 1,000 mls @ 999 mls/hr IV .Q1H1M ONE Stop: 09/09/24 19:17 Last Infusion: 09/09/24 19:23 Dose: Infused Insulin Human Regular (Insulin Hum Regular 1 Unit/0.01 Ml (Per Unit)) 5 unit IV X1 ONE Stop: 09/10/24 00:12 Last Admin: 09/10/24 00:31 Dose: 5 unit Naloxone HCl (Naloxone Inj 0.4 Mg/Ml Vial) 0.04 mg IV X1 ONE Stop: 09/09/24 17:31 Last Admin: 09/09/24 17:40 Dose: Not Given Naloxone HCl (Naloxone Inj 0.4 Mg/Ml Vial) 0.4 mg IV X1 ONE Stop: 09/09/24 18:01 Last Admin: 09/09/24 17:48 Dose: 0.4 mg Assessment & Plan Plan 59-year-old male patient with PMHx significant for PE/DVT on Eliquis, Hx of PUD with GI bleed requiring transfusions, IDDM I, Katherine-en-Y gastric bypass (2007), and hx of seizures on Keppra BIBA from home, patient was admitted to ICU for acute encephalopathy in settings of acute renal failure. Imaging; Head CT; Negative for acute changes. Renal US; Bl cortical thining w bl parenchymal scar formation w prostomegaly. C/A/P CT; Pending read but no perforation/pneumoperitoneum noted. 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 Patient's undergoing hemodialysis Consider EEG/MRI if encephalopathy persists despite resolution of uremia. Neurology consulted, recommendations appreciated. #Hx of seizures Continue home medications/Keppra pending med rec. Neuro consulted, recommendations appreciated. CVS #Shock Undifferentiated, possibly hypovolemic/ septic Patient started on Levophed/vasopressin after receiving 4L of IV fluid. Maintaining MAP goal> 65. Patient currently requiring high doses of pressors likely in settings of metabolic acidosis. Pulm #Community aquired pneumonia Patient started on ceftriaxone/azithromycin. Oxygen as needed. Follow-up blood cultures/sputum cultures/urine cultures. F/U MRSA screen and Flu A/B Renal #Acute on chronic renal failure. #Anion gap metabolic acidosis w respiratory alkalosis #Hyperkalemia Prerenal vs renal Obstructive LEON ruled out Volume resuscitated Avoid nephrotoxic medications and renally dose if needed. Patient's undergoing hemodialysis. Follow-up daily renal panel. Monitor/correct electrolytes as warranted Continue HD per nephro recs. Nephrology consulted, recommendations appreciated. ID #Community-acquired pneumonia -Patient received 4L of IVF bolus (Not charted by day team per nurse Rutherford) -Patient started on Ceftriaxone and AZT -F/U Bcx/Ucx/Sputum Cx Heme #Chronic anemia No signs of active bleed, baseline Hgb around 9 No prior iron panel noted. Follow-up iron panel Follow-up daily CBC. Transfuse for Hgb<7 Endo #IDDM I -Maintain BG between 140-180 ideally -Patient started on ISS. -F/U HbA1c GI #Elevated LFTs Likely in setting of shock/hypotension. Continue to monitor daily LFTs. Consider further workup with acute hepatitis panel/liver USG as warranted. #Hx of gastric bypass #Hx of PUD #Hx of UGIB DVT prophylaxis: Eliquis 2.5 BID (Home dose- pending med rec) Diet: N.p.o. pending swallow eval improvement of mentation Lentz: + Lines: PIV, RIJ, right femoral HD cath CODE STATUS: Full code Reason for hospitalization/disposition:Acute encephalopathy in setting of acute renal failure Plan of care discussed with senior attending Dr. Kunal Alex PGY-3 Attending Provider Attestation/Addendum Pt was evaluated and plan formulated together with the housestaff team. I have reviewed the residents note above and agree with most of its content. Please refer to the residents note for additional details.
[2024-09-10] MEDS: VASOPRESSIN IN NS IVPB 20 UNIT/100 ML BAG 9 UNIT IV ×2 (01:23→10:22)
--- NOTE | 2024-09-10 01:23 | PD.EVENT ---
Documentation for date of: 09/10/24 Event Note Event Note: A 59-year-old male presented to the Emergency Department with the chief complaint of altered mental status since approximately 3:00 PM. According to the patient?s daughter, he was last seen at his baseline in the morning?alert, speaking coherently, but appearing tired and remaining in bed longer than usual. When she awoke at 3:00 PM after working a farm reporter, she found him confused, minimally responsive, and unable to ambulate independently. He was making incoherent statements and required physical assistance to move. She reports decreased oral intake and minimal fluid consumption over the past few days. There were no reported fevers, respiratory symptoms, nausea, or vomiting. The patient?s opioid use is monitored by his daughter due to a prior accidental overdose; she reports his last dose of oxycodone was taken yesterday morning and denies any recent overuse. No new medications were started. The patient typically functions independently and uses a cane occasionally for chronic back and knee pain. The patient has a history of insulin-dependent diabetes mellitus type 1, Katherine-en-Y gastric bypass in 2003, peptic ulcer disease with gastrointestinal bleeding, pulmonary embolism and deep vein thrombosis for which he takes apixaban, chronic back pain managed with oxycodone, and a seizure disorder managed with levetiracetam. Social history includes caregiver-supervised opioid use. He has had prior evaluations for renal dysfunction, but kidney function was reportedly stable two months ago. He lives at home and is generally independent in his activities of daily living. In the Emergency Department, vital signs showed hypotension with a blood pressure of 54/43 and heart rate of 96. On arrival, his [place] Coma Scale score was 3, and pupils were pinpoint. He received naloxone, which improved his level of alertness. A code stroke was initiated, but neurologic evaluation favored a toxic-metabolic cause. Computed tomography of the head was negative for acute hemorrhage, mass effect, or midline shift. Laboratory evaluation showed white blood cell count of 10.4, hemoglobin 9.7, potassium 6.1, bicarbonate less than 10, blood urea nitrogen 119, creatinine 7.2, glucose 201, and procalcitonin 2.07. Liver enzymes were mildly elevated. Venous blood gas demonstrated pH 7.05 and carbon dioxide 22. Urine toxicology was positive for opiates. A Lentz catheter was placed, yielding 250 ml of urine. Renal ultrasound showed no hydronephrosis. Despite receiving 3 liters of intravenous fluids, the patient remained hypotensive and was started on vasopressors. Computed tomography of the abdomen showed no free air or bowel obstruction, but there were patchy reticular nodular densities in the lingula and left lower lobe. Nephrology was consulted, and based on clinical status and laboratory results, the patient will require dialysis. He is being admitted to ICU for further management.
--- NOTE | 2024-09-10 01:32 | ECHO_ITS ---
Transthoracic Echo Report Ht (in): 69 Wt (lb): 140 Exam Location: Portable Status: Emergency Drop Forger Helper: KEZIA Bean^^^^ Indications: Procedure Performed: BP: 100 / 57 HR: 120 Technical Quality: Very technically difficult study MEASUREMENTS (Male / Female) Normal Values 2D ECHO LV Diastolic Diameter PLAX 4.2 cm 4.2 - 5.9 / 3.9 - 5.3 cm LV Systolic Diameter PLAX 2.7 cm IVS Diastolic Thickness 0.5 cm 0.6 - 1.0 / 0.6 - 0.9 cm LVPW Diastolic Thickness 0.6 cm 0.6 - 1.0 / 0.6 - 0.9 cm LV Relative Wall Thickness 0.3 LVOT Diameter 1.8 cm Aortic Root Diameter 3.1 cm LA Systolic Diameter LX 2.9 cm 3.0 - 4.0 / 2.7 - 3.8 cm DOPPLER AV Peak Velocity 161.5 cm/s AV Peak Gradient 10.4 mmHg AV Mean Gradient 7.0 mmHg AV Velocity Time Integral 28.9 cm LVOT Peak Velocity 93.8 cm/s LVOT Peak Gradient 3.5 mmHg LVOT Velocity Time Integral 25.2 cm LVOT Cardiac Index 4388.4 cm?/min?m? AV Area Cont Eq vti 2.2 cm? AV Area Cont Eq pk 1.5 cm? TR Peak Velocity 259.0 cm/s TR Peak Gradient 26.8 mmHg FINDINGS Left Ventricle Normal left ventricular size, wall thickness, systolic function with no obvious regional wall motion abnormalities. Normal left ventricular diastolic filling pattern for age. The ejection fraction is visually estimated at 60-65 %. Right Ventricle The right ventricle is normal in size and systolic function. The estimated right ventricular systolic pressure, 30 mmHg. Left Atrium The left atrium is normal by two-dimensional, color flow and Doppler imaging with no structural abnormalities, no thrombus formation present. Right Atrium The right atrium is normal by two-dimensional imaging, color flow and Doppler imaging with no structural abnormalities, no thrombus formation present. Atrial Septum The interatrial septum appears normal with no evidence of a shunt. Aorta The aorta is normal by two-dimensional, color flow and Doppler interrogation. Mitral Valve Mitral annular calcification. Aortic Valve Aortic valve sclerosis. Tricuspid Valve There is mild tricuspid valve regurgitation. Pulmonic Valve The pulmonic valve is not well visualized. There is no significant pulmonic valve regurgitation. Vessels The pulmonary artery appears normal. The inferior vena cava pulmonary and hepatic veins appear normal. Pericardium The pericardium is normal by two-dimensional imaging. There is no significant pericardial effusion. CONCLUSIONS Indication: Shock, Patient combative during echo Normal LV size and function. Estimated EF 60 to 65%. Normal RV size and function. Estimated RVSP 30 to 35%. Mild aortic valve sclerosis without stenosis. Mild MAC and mild TR and trace MR Perry Anumandla (Electronically Signed) Final Date: 11 September 2024 13:31
[2024-09-10] MEDS: RINGERS LACTATED 1000 ML 1,000 ML 999 ML IV (01:43)
[2024-09-10] MEDS: cefTRIAXone/D5w 1gm IV premix 1 GM/50 ML BAG IV (01:43)
[2024-09-10] MEDS: Sodium Bicarb 8.4% 50ml Vial* 88.23 MEQ in DEXTROSE 5%-WATER 500 ML 125 MEQ IV (01:48)
--- NOTE | 2024-09-10 02:38 | PC.NURSE ---
report given to sustainable agriculture specialistmeg meraz
--- NOTE | 2024-09-10 03:44 | PD.RESPROC ---
Procedures Procedure Date / Time 09/10/24 0344 Central Line Placement Right IJ: Indication(s): shock and poor, or inadequate peripheral venous access Informed consent obtained: from patient, obtained from surrogate decision maker, implied, procedure done urgently and other (from daughter ) Time out done, and the following verified: correct patient, side and site, procedure and patient position Patient placed on monitor/pulse ox: Yes Hand Hygiene: alcohol-based hand rub Max Sterile Barrier Techniques used: cap, mask, sterile gown, sterile gloves and sterile full body drape Central line prep: Chlorhexidine scrub Local anesthesia used: lidocaine 1% Amount of anesthesia used (mL): 5 Sterile Technique if Ultrasound used, including sterile gel: yes Central line lumen inserted: triple Post procedure: sutured in place, good blood return, all ports aspirated, flushed, capped and sterile dressing applied Post procedure x-ray: tip of catheter in good position and no pneumothorax seen EBL(ml): 5
--- NOTE | 2024-09-10 03:46 | PD.RESPROC ---
Procedures Procedure Date / Time 09/10/24 0346 Central Line Placement Right Femoral: Indication(s): other (Urgent hemodialysis ) Informed consent obtained: from patient, obtained from surrogate decision maker, implied, procedure done urgently and other (from daughter ) Time out done, and the following verified: correct patient, side and site, procedure and patient position Hand Hygiene: alcohol-based hand rub Max Sterile Barrier Techniques used: cap, mask, sterile gown, sterile gloves and sterile full body drape Central line prep: Chlorhexidine scrub Local anesthesia used: lidocaine 1% Amount of anesthesia used (mL): 5 Ultrasound used for placement: Yes Sterile Technique if Ultrasound used, including sterile gel: yes Central line lumen inserted: triple Post procedure: sutured in place, good blood return, all ports aspirated, flushed, capped and sterile dressing applied Patient tolerated procedure: well EBL(ml): 5 Procedure comment: Tri-phasic Vas-Cath for urgent dialysis. Cath present and visualized by ultrasound
[2024-09-10] MEDS: AZITHROMYCIN INJ 500 MG in SODIUM CHLORIDE 0.9% 250 ML 250 ML 250 MG IV (04:43)
--- NOTE | 2024-09-10 05:01 | PC.NURSE ---
LETI Judge increased Levophed.
[2024-09-10 05:49] LABS: Basophils % (Auto) 0 % (0-2.5); Eosinophils % (Auto) 0 % (0-10); Immature Granulocytes % (Auto) 0 % (0-0); Mean Corpuscular Volume 80 fL (80-100); Monocytes # (Auto) 0.4 Thou/mm3 (0.0-0.8)
[2024-09-10 05:51] LABS: Hematocrit 28.4 % (41.0-53.0); Immature Granulocytes Auto 0.01 Thou/mm3 (0.00-0.00); Lymphocytes # (Auto) 0.1 Thou/mm3 (1.0-4.8); Lymphocytes % (Auto) 4 % (10-50); Mean Corpuscular Hemoglobin 24.9 pg (25.0-35.0); Monocytes % (Auto) 12 % (0-12); Neutrophils # (Auto) 2.9 Thou/mm3 (1.8-7.7); Neutrophils % (Auto) 84 % (37-80); Nucleated Red Blood Cell # 0.12 Thou/mm3 (0.00-0.00); Nucleated Red Blood Cell % 4 /100 WBC (0); Platelet Count 235 Thou/mm3 (140-440); RDW Standard Deviation 59.7 fL (35.1-43.9); Red Blood Count 3.54 Miln/mm3 (4.50-5.90); White Blood Count 3.5 Thou/mm3 (3.8-10.6)
[2024-09-10 06:13] LABS: Hemoglobin 8.8 g/dL (13.5-16.0)
[2024-09-10 06:16] LABS: Alanine Aminotransferase 103 U/L (10-49); Albumin, Serum 3.4 gm/dL (3.4-4.8); Albumin/Globulin Ratio 1.5 (1.2-2.2); Alkaline Phosphatase 159 U/L (46-116); Anion Gap 25 (7-16); Aspartate Amino Transferase 124 U/L (0-34); BUN/Creatinine Ratio 16 Ratio (12-20); Bilirubin,Total 0.4 mg/dL (0.3-1.2); Blood Urea Nitrogen 85 mg/dL (9-23); Calcium (Corrected) 8.5 mg/dL (8.5-10.1); Carbon Dioxide 14.9 mMol/L (20.0-31.0); Chloride 97 mMol/L (98-107); Creatinine (Component) 5.2 mg/dL (0.6-1.3); Estimated Creatinine Clearance 13.7 mL/min (>60); Globulin 2.2 gm/dL (2.3-3.5); Glucose 182 mg/dL (74-106); Iron 9 mcg/dL (65-175); Osmolality,Calculated 304 (275-295); Percent Iron Saturation 2 % (20-55); Potassium 4.7 mMol/L (3.4-5.1); Sodium 137 mMol/L (136-145); Total Iron Binding Capacity 324 mcg/dL (250-425); Total Protein 5.6 gm/dL (5.7-8.2); Unsaturated Iron Binding 315 (225-295); eGFR 12 See Note
[2024-09-10] MEDS: HEPARIN SOD INJ 1000 UNIT/ML VIAL 10 ML 2600 UNIT INDWELLCAT (06:16)
[2024-09-10] MEDS: HEPARIN SOD INJ 5000 UNIT/ML VIAL SC ×3 (06:17→21:10)
--- NOTE | 2024-09-10 06:17 | PC.NURSE ---
Venous chamber starting to clot. Treatment ended, all blood returned.
[2024-09-10 08:28] LABS: Alanine Aminotransferase 95 U/L (10-49); Albumin, Serum 3.2 gm/dL (3.4-4.8); Albumin/Globulin Ratio 1.5 (1.2-2.2); Alkaline Phosphatase 149 U/L (46-116); Anion Gap 25 (7-16); Aspartate Amino Transferase 112 U/L (0-34); BUN/Creatinine Ratio 16 Ratio (12-20); Bilirubin,Total 0.5 mg/dL (0.3-1.2); Blood Urea Nitrogen 76 mg/dL (9-23); Calcium 7.6 mg/dL (8.3-10.6); Calcium (Corrected) 8.2 mg/dL (8.5-10.1); Chloride 98 mMol/L (98-107); Creatinine (Component) 4.8 mg/dL (0.6-1.3); Estimated Creatinine Clearance 14.8 mL/min (>60); Globulin 2.1 gm/dL (2.3-3.5); Glucose 193 mg/dL (74-106); Osmolality,Calculated 301 (275-295); Potassium 4.9 mMol/L (3.4-5.1); Sodium 137 mMol/L (136-145); Total Protein 5.3 gm/dL (5.7-8.2); eGFR 13 See Note
[2024-09-10 08:55] LABS: Carbon Dioxide 13.7 mMol/L (20.0-31.0)
[2024-09-10 09:19] LABS: Lactate (Lactic Acid) 1.2 mMol/L (0.4-2.0)
[2024-09-10] MEDS: NALOXONE INJ 1 MG/ML SYRINGE 2 ML 0.4 MG IV (09:52)
[2024-09-10] MEDS: levETIRAcetam INJ 100 MG/ML VIAL 5ML 500 MG IVP ×2 (09:52→21:07)
[2024-09-10 10:19] LABS: Creatine Kinase 2777 U/L (34-171)
[2024-09-10] MEDS: Norepinephrine/NS 16mg/250ml 16 MG/250 ML BAG 10.121 MG IV (10:21)
[2024-09-10] MEDS: RINGERS LACTATED 1000 ML 500 ML 999 ML IV (10:24)
[2024-09-10] MEDS: PIPER/TAZO 3.375 GM PREMIX 3.375 GM/50 ML BAG IV ×2 (10:31→21:06)
--- NOTE | 2024-09-10 10:37 | ESPR_ITS ---
<Statement entered by Abbe Jcaobson MD - 09/10/24 11:17> TOTAL CC TIME: 65 MIN I saw and evaluated the patient. I reviewed the resident?s note and agree with findings and plan as documented in the resident?s note. Upon my evaluation, this patient had a high probability of imminent or life- threatening deterioration due to distributive shock which required my direct attention, intervention, and personal management. This time is exclusive of time spent on procedures, which are documented separately if performed. shock appears most likely due to overdose of home medications (including but not limited to opiods/bblkrs/jose-I). no clear infectious source identified. infiltrates at base of lung are very similar to those noted on December 2023 CT chest pt is on room air not in resp distress and therefore PNA seems to be less likely as a cause of shock. his physical exam is confounded by hypersensitivity to touch anywhere on the body. Abd is soft without rebound. CT abd/pelv w/o evid of source of shock - UA without evid to support infx. Pt clearly responsive to narcan w/ improve level of conciousness. Suspect renal failure due to meds and shock Will require further HD for uremia clearance. Daughter at bedside and above explained in detail. Questions answered. <Statement entered by Lesley Tolliver MD - 09/10/24 10:48> This is a 59-year-old male with a past medical history significant for hypertension, diabetes, DVT on Eliquis, a history of GI bleed, seizures, and chronic back pain managed with home opioid medication. The patient was admitted to the ICU for shock requiring pressor support and acute kidney failure requiring hemodialysis. On presentation, the patient had a GCS of 3 with pinpoint pupils. Narcan was administered, and a head CT was obtained, which was negative for any abnormalities. The patient's CMP revealed severe hyperkalemia and anion gap metabolic acidosis. Despite receiving fluid resuscitation, the patient's main blood pressure remained below 65 mmHg, prompting the initiation of pressor support. Nephrology was consulted, and the patient underwent emergent hemodialysis with ultrafiltration. A CT abdomen was performed to evaluate for the source of sepsis, but no abscess or inflammatory changes were noted. There is concern that the patient's acute kidney injury may be due to a home opioid overdose. The patient also had an elevated creatinine kinase level, which could be contributing to acute tubular necrosis Upon evaluation today, the patient is more awake and alert. The patient denies any new neurological deficits, though Narcan was not available at the bedside during the assessment. We plan to administer an additional 500 mL fluid bolus and reassess the patient?s mental status for any acute changes. Nephrology remains involved, and the patient is expected to undergo another hemodialysis session, likely tomorrow. I personally saw and examined the patient and discussed the assessment and plan with the entire medicine team, including my attending Dr.Malli Lesley Tolliver M.D. PGY-2 Disclaimer: Despite multiple revisions, due to the dictation software being used, the document bellow may not be free of grammatical errors including phonetic/typographic errors. However, this does not deter from our commitment to providing health care in the patient's best interest in mind. Documentation for date of: 09/10/24 Subjective Subjective Interval history: Patient seen and examined at bedside. He is a 59-year-old male with past medical history of hypertension, diabetes, gastric bypass, DVT on Eliquis, PUD and GI bleed, seizures and chronic back pain who was Biba from home with altered mental status to the ED on 09/09/2024. Reported to have had decreased oral intake and uses oxycodone and [place] for chronic pain On presentation, patient reported to have had pinpoint pupils and a GCS of 3, dose of Narcan was given. Per stroke protocol, head CT was done which was negative. CMP revealed acute renal failure with hyperkalemia acidemia and anion gap metabolic acidosis. In total, the patient received 4 L of IV fluids, insulin for hyperkalemia and had an HD catheter inserted for emergent dialysis. Patient had a session of HD ultrafiltration done just completed at 6 AM this morning. At bedside today, patient's GCS is 13, he is able to follow commands but lethargic and confused, AAO x 1. On further examination, noted to have hypersensitivity to non noxious stimuli and bradypneic, also has some muscle rigidity, will follow-up with creatinine kinase. Given another dose of Narcan at bedside, respiratory status seems to improve as well as patient is more awake. Felt Machine Mechanic Dr. Liang contacted, will hold off on dialysis today and likely repeat another session tomorrow, for now will give a 500cc bolus of LR. Will continue to monitor patient's mentation, to give another dose of Narcan if required. Will also continue to investigate any other sources for likely septis. Exam Vital Signs Temp Pulse Resp BP Pulse Ox O2 Del Method 98.3 F 97 14 90/52 L 100 Room Air 09/10/24 07:30 09/10/24 09:15 09/10/24 09:15 09/10/24 09:15 09/10/24 09:15 09/10/24 07:30 Narrative Exam GENERAL: AAOX1, lethargic, can follow simple commands NEURO: Able to move all 4 extremities, pupils reactive bilaterally. Otherwise unable to assess HEENT: Dry mucosa. Eyes open, symmetrical, & clear, pupils equal CARDIO: Heart RRR, no obvious murmurs PULM: Bradypneic, saturating 96% on room air GI: Abdomen soft, nondistended, grimacing to superficial palpation . BSx4 URO/HUMAN RESOURCES TEAM MEMBER: No further abnormalities noted. Lentz catheter in situ SKIN/MSK/EXT: Bilateral lower extremities rigid and tight, bruising at the knee and on shins Objective Labs 09/10/24 04:51 09/10/24 07:51 Labs: Laboratory Results - last 24 hr 09/09/24 09/09/24 09/09/24 17:34 17:36 18:25 WBC 10.4 RBC 3.86 L Hgb 9.7 L Hct 32.4 L MCV 84 MCH 25.1 MCHC 29.9 L RDW Std Deviation 62.7 H Plt Count 303 Neut % (Auto) 87 H Lymph % (Auto) 4 L [place] % (Auto) 9 Eos % (Auto) 0 Baso % (Auto) 0 Neut # (Auto) 9.0 H Lymph # (Auto) 0.4 L [place] # (Auto) 0.9 H Eos # (Auto) 0.0 Baso # (Auto) 0.0 Immature Gran # (Auto) 0.03 H Absolute Nucleated RBC 0.11 H Immature Gran % 0 Nucleated RBC % 1 H PT 13.0 H INR 1.2 APTT 36.5 H Puncture Site ABG pH ABG pCO2 ABG pO2 ABG HCO3 ABG O2 Saturation ABG Base Excess VBG pH VBG pCO2 VBG pO2 VBG O2 Sat ([place]) VBG Base Excess Oxygen Liter Flow FiO2 Sodium 134 L Potassium 6.1 H* Chloride 96 L Carbon Dioxide < 10.0 L* Anion Gap 28 H BUN 119 H* Creatinine 7.2 H* Estim Creat Clear Calc 9.8 L eGFR 8 L* BUN/Creatinine Ratio 17 Glucose 201 H Calculated Osmolality 312 H Lactic Acid Calcium 7.1 L Corrected Calcium 7.6 L Magnesium 2.4 Iron TIBC Iron Saturation Unsat Iron Binding Total Bilirubin 0.5 AST 149 H ALT 109 H Alkaline Phosphatase 161 H Total Creatine Kinase Troponin I < 0.020 Total Protein 5.5 L Albumin 3.4 Globulin 2.1 L Albumin/Globulin Ratio 1.6 Procalcitonin Ur Collection Type Urine Color Urine Clarity Urine pH Ur Specific Hanna Urine Protein Urine Glucose (UA) Urine Ketones Urine Blood Urine Nitrite Urine Bilirubin Urine Urobilinogen (Auto) Ur Leukocyte Esterase Urine RBC Urine WBC Ur Squamous Epith Cells Urine Bacteria Urine Opiates Screen Urine Fentanyl Screen Ur Barbiturates Screen U Amphetamin/Meth Scrn U Benzodiazepines Scrn U Cocaine Metab Screen U Marijuana (THC) Screen 09/09/24 09/09/24 09/09/24 19:07 20:24 22:51 WBC RBC Hgb Hct MCV MCH MCHC RDW Std Deviation Plt Count Neut % (Auto) Lymph % (Auto) [place] % (Auto) Eos % (Auto) Baso % (Auto) Neut # (Auto) Lymph # (Auto) [place] # (Auto) Eos # (Auto) Baso # (Auto) Immature Gran # (Auto) Absolute Nucleated RBC Immature Gran % Nucleated RBC % PT INR APTT Puncture Site Cancelled ABG pH Cancelled ABG pCO2 Cancelled ABG pO2 Cancelled ABG HCO3 Cancelled ABG O2 Saturation Cancelled ABG Base Excess Cancelled VBG pH 7.05 L VBG pCO2 22 L VBG pO2 55 VBG O2 Sat ([place]) 76 L VBG Base Excess -23 L Oxygen Liter Flow Cancelled FiO2 Cancelled Sodium 136 Potassium 6.1 H* Chloride 98 Carbon Dioxide < 10.0 L* Anion Gap 28 H BUN 117 H* Creatinine 7.0 H* Estim Creat Clear Calc 10.1 L eGFR 8 L* BUN/Creatinine Ratio 17 Glucose 180 H Calculated Osmolality 314 H Lactic Acid 1.5 Calcium 7.4 L Corrected Calcium Magnesium Iron TIBC Iron Saturation Unsat Iron Binding Total Bilirubin AST ALT Alkaline Phosphatase Total Creatine Kinase Troponin I Total Protein Albumin Globulin Albumin/Globulin Ratio Procalcitonin 2.07 H Ur Collection Type Voided Urine Color Yellow Urine Clarity Turbid A Urine pH 5.0 Ur Specific Hanna 1.018 Urine Protein 1+ A Urine Glucose (UA) 4+ A Urine Ketones Trace Urine Blood Trace Urine Nitrite Negative Urine Bilirubin Negative Urine Urobilinogen (Auto) Negative Ur Leukocyte Esterase Negative Urine RBC 1 Urine WBC 5 Ur Squamous Epith Cells 3 Urine Bacteria None Urine Opiates Screen Positive A Urine Fentanyl Screen Negative Ur Barbiturates Screen Negative U Amphetamin/Meth Scrn Negative U Benzodiazepines Scrn Negative U Cocaine Metab Screen Negative U Marijuana (THC) Screen Negative 09/10/24 09/10/24 09/10/24 04:51 07:51 09:00 WBC 3.5 L D RBC 3.54 L Hgb 8.8 L Hct 28.4 L MCV 80 MCH 24.9 L MCHC 31.0 RDW Std Deviation 59.7 H Plt Count 235 D Neut % (Auto) 84 H Lymph % (Auto) 4 L [place] % (Auto) 12 Eos % (Auto) 0 Baso % (Auto) 0 Neut # (Auto) 2.9 Lymph # (Auto) 0.1 L [place] # (Auto) 0.4 Eos # (Auto) 0.0 Baso # (Auto) 0.0 Immature Gran # (Auto) 0.01 H Absolute Nucleated RBC 0.12 H Immature Gran % 0 Nucleated RBC % 4 H PT INR APTT Puncture Site ABG pH ABG pCO2 ABG pO2 ABG HCO3 ABG O2 Saturation ABG Base Excess VBG pH VBG pCO2 VBG pO2 VBG O2 Sat ([place]) VBG Base Excess Oxygen Liter Flow FiO2 Sodium 137 137 Potassium 4.7 D 4.9 Chloride 97 L 98 Carbon Dioxide 14.9 L* 13.7 L* Anion Gap 25 H 25 H BUN 85 H 76 H Creatinine 5.2 H* D 4.8 H* Estim Creat Clear Calc 13.7 L 14.8 L eGFR 12 L* 13 L* BUN/Creatinine Ratio 16 16 Glucose 182 H 193 H Calculated Osmolality 304 H 301 H Lactic Acid 1.2 Calcium 8.0 L 7.6 L Corrected Calcium 8.5 8.2 L Magnesium Iron 9 L TIBC 324 Iron Saturation 2 L Unsat Iron Binding 315 H Total Bilirubin 0.4 0.5 AST 124 H 112 H ALT 103 H 95 H Alkaline Phosphatase 159 H 149 H Total Creatine Kinase 2777 H Troponin I Total Protein 5.6 L 5.3 L Albumin 3.4 3.2 L Globulin 2.2 L 2.1 L Albumin/Globulin Ratio 1.5 1.5 Procalcitonin Ur Collection Type Urine Color Urine Clarity Urine pH Ur Specific Hanna Urine Protein Urine Glucose (UA) Urine Ketones Urine Blood Urine Nitrite Urine Bilirubin Urine Urobilinogen (Auto) Ur Leukocyte Esterase Urine RBC Urine WBC Ur Squamous Epith Cells Urine Bacteria Urine Opiates Screen Urine Fentanyl Screen Ur Barbiturates Screen U Amphetamin/Meth Scrn U Benzodiazepines Scrn U Cocaine Metab Screen U Marijuana (THC) Screen ABG Interpretation ABG results: 09/09/24 20:24 ABG pH Cancelled ABG pCO2 Cancelled ABG pO2 Cancelled ABG HCO3 Cancelled ABG O2 Saturation Cancelled ABG Base Excess Cancelled VBG pH 7.05 L VBG pCO2 22 L VBG pO2 55 VBG Base Excess -23 L Quality Measures Quality Measures sepsis Current suspected stage: sepsis Possible source: pulmonary Blood cultures ordered: yes Antibiotic ordered: Yes Assessment & Plan Assessment Current Active Medications: Generic Name Dose Route Start Last Admin Trade Name Freq PRN Reason Stop Dose Admin Acetaminophen 650 mg 09/10/24 01:25 Acetaminophen 325 Mg Tablet PO 10/10/24 01:24 Q4HR PRN PAIN SCALE 1-3 (mild Acetaminophen 650 mg 09/10/24 01:25 Acetaminophen Supp 650 Mg Supp TN 10/10/24 01:24 Q4HR PRN PAIN SCALE 1-3 (mild Al Hydrox/Mg Hydrox/Simethicone 30 ml 09/10/24 01:25 Mg Hyd/Al Hyd/Maday (Maalox Reg) Susp 30 Ml Udc PO 10/10/24 01:24 Q4HR PRN Heartburn or Upset Stomach Dextrose 25 ml 09/10/24 04:04 Dextrose 50%-Water Inj 50 Ml Syringe IV 10/10/24 04:03 Q15MIN PRN BG 50-70 responsive npo pt Dextrose 50 ml 09/10/24 04:04 Dextrose 50%-Water Inj 50 Ml Syringe IV 10/10/24 04:03 Q15MIN PRN BG <50 OR BG <70 & pt unresponsive Heparin Sodium (Porcine) 5,000 unit 09/10/24 06:00 09/10/24 06:17 Heparin Sod Inj 5000 Unit/Ml Vial SC 09/24/24 05:59 5,000 unit Q8HR BRANDON Administration Heparin Sodium (Porcine) 2,600 unit 09/10/24 05:31 09/10/24 06:16 Heparin Sod Inj 1000 Unit/Ml Vial 10 Ml INDWELLCAT 09/24/24 05:30 2,600 unit X1 PRN Administration DIALYSIS Norepinephrine Bitartrate 16 mg in 250 mls @ 2.977 mls/hr 09/09/24 20:17 09/10/24 07:00 Levophed In Ns 16mg/250ml IV 10/09/24 20:16 0.33 mcg/kg/min .Q24H PRN 19.646 mls/hr PER protocol Titration Protocol 0.05 MCG/KG/MIN Vasopressin/Sodium Chloride 20 unit in 100 mls @ 9 mls/hr 09/10/24 01:07 09/10/24 10:22 Vasostrict/Ns Ivpb IV 10/10/24 01:06 0.03 unit/min .Q11H7M PRN 9 mls/hr PER PROTOCOL Administration Protocol 0.03 UNIT/MIN Phenylephrine HCl 40 mg/ 100 mls @ 4.763 mls/hr 09/10/24 01:38 Sodium Chloride IV 10/10/24 01:37 .Q21H PRN Per Sepsis Protocol Protocol 0.5 MCG/KG/MIN Azithromycin 500 mg/ Sodium 250 mls @ 250 mls/hr 09/11/24 09:00 Chloride IV 09/18/24 08:59 QDAY BRANDON Albumin Human 25 gm in 100 mls @ 100 mls/min 09/10/24 05:33 Albuminar-25 Ivpb IV PRN PRN DIALYSIS Piperacillin/Tazobactam/Dextrose 3.375 gm in 50 mls @ 12.5 mls/hr 09/10/24 21:00 Zosyn IV 09/17/24 20:59 Q12HR BRANDON Lactated Ringer's 500 mls @ 999 mls/hr 09/10/24 10:15 09/10/24 10:24 Lactated Ringers IV 09/10/24 10:45 999 mls/hr .Q31M ONE Administration Insulin Human Lispro 0 unit 09/10/24 06:00 09/10/24 06:13 Insulin Lispro (Admelog) 1 Unit/0.01 Ml Unit SC 10/10/24 05:59 Not Given Q6HR [facility] Protocol Levetiracetam 500 mg 09/10/24 09:00 09/10/24 09:52 Levetiracetam Inj 100 Mg/Ml Vial 5ml IVP 10/10/24 08:59 500 mg Q12HR BRANDON Administration Magnesium Hydroxide 30 ml 09/10/24 01:25 Milk Of Magnesia Susp 30 Ml Udc PO 10/10/24 01:24 QDAY PRN CONSTIPATION Ondansetron HCl 4 mg 09/10/24 01:25 Ondansetron Inj 2 Mg/Ml Inj 2 Ml IV 10/10/24 01:24 Q6HR PRN NAUSEA OR VOMITING Plan Summary: The patient is a 59-year-old male with past medical history of hypertension, diabetes, gastric bypass, DVT on Eliquis, PUD and GI bleed, seizures and chronic back pain who was Biba from home with altered mental status to the ED on 09/09/2024. Admitted for acute encephalopathy, requiring dialysis for acute renal failure. Neuro #Acute metabolic encephalopathy #Uremia #Likely accidental overdose Patient was found to be altered by daughter. On presentation to the ED, GCS was 3, patient had pinpoint pupils, takes oxycodone and hydrocodone at home. Initial CMP significant for elevated BUN at 119 and creatinine of 7.[address] was done was negative. Received another dose of Narcan today, currently GCS of 12/13. Plan: -Will continue to monitor patient's mentation and if required another dose of Narcan. -Hemodialysis as scheduled by nephrology #History of seizures Patient has a history of seizures, has not had any episodes in years. On Keppra 500 mg twice daily. Plan: -Will continue Keppra Cardiovascular #Hypotension #Undifferentiated shock The patient presented with an initial blood pressure of 5443, but was consistently below 65. He received 3 L of fluids in the ED with blood pressure still soft and was consequently started on Levophed and vasopressin. Plan: -Will continue to down titrate pressors to MAP of 65 Respiratory #Community-acquired pneumonia Initial chest x-ray to evaluate source of sepsis showed some findings consistent with likely pneumonia. The patient was initially started on ceftriaxone and azithromycin and then switched to Zosyn. Cultures pending, will de-escalate antibiotics to continue on ceftriaxone and azithromycin. Plan: -Continue antibiotics -Follow-up cultures and MRSA screen GI #Transaminitis Mild elevation in ALT and AST on admission, currently downtrending. AST at 112 and ALT 95. Normal T. bili and elevated ALP. Will continue to monitor trend Renal #Acute on chronic renal failure The patient has a history of CKD and is on currently. On admission, CMP showed a BUN of 119 and creatinine of 7.2. Renal ultrasound showed bilateral cortical thinning and parenchymal scarring consistent with CKD. Patient received 4 L of IV fluids Nephrology was consulted for emergent hemodialysis and patient had 1 session of ultrafiltration done. Repeat BUN and creatinine this morning are 85 and 5.2 respectively Per nephrology, will hold dialysis today and have another session likely tomorrow based on progress. Plan: -Repeat renal panel 12 hours -IV fluids LR 500 cc bolus -Avoid nephrotoxic medications -Renally dose medications #Anion gap metabolic acidosis Labs today, bicarb at 14.9 with anion gap of 28. Due to delta gap of 1.8 reflective of periodic mild. Lactic acid normal, elevated BUN. Patient had 1 session of hemodialysis. Plan: -Continue to monitor renal panel -For repeat hemodialysis if persistent #Hyperkalemia-resolved The patient came in with a potassium of 7.2, received 5 units of IV insulin initially and then had a session of hemodialysis. Potassium today at 4.7. Will continue to monitor. Hematology #Leukopenia, likely dilutional #Anemia Initial presentation, the patient had a white blood count of 10.4, at 3.5 today. Likely due to 4 L of fluid received as reflected in other cell counts. Will continue to monitor. Endocrinology #History of type II DM The patient has a history of type II DM with last A1c done about 3 months ago of 7.2. Admitting glucose at 207. Plan: -ISS -Keep glucose between 140 and 180 -Continue blood glucose check every 6 hours -Hypoglycemic protocols in place ID -See resp above Health maintenance: Dispo: ICU for refractory hypotension, likely shock Diet: N.p.o. DVT: SC heparin Lentz: None Lines: Right IJ, right femoral HD Code: Full Case was discussed with Dr Tolliver PGY-2 and attending physician, Dr Indira Chan MD PGY-1 Disclaimer: This note was dictated by speech recognition. Minor errors in fruit express agent may be present due to voice recognition software.
--- NOTE | 2024-09-10 10:43 | CHAP ---
Patient was visited by a Spiritual Care Volunteer on 09/10/2024 between 0910 and [id number] and received comfort, encouragement and/or prayer.
--- NOTE | 2024-09-10 11:27 | PC.SS ---
[employer] conducted phone contact with the patient?s daughter, Maria E Wayne ; to conduct initial assessment. ?Patient currently admitted to ICU.? Patient is retired.? Patient resides at home with daughter, Maria E Wayne.? Patient utilizes a walker when needed to assist with ambulation.? Patient does not utilize home oxygen.? Patient is able to complete ADL?s independently.? Patient?s surrogate medical decision maker is daughterMaria E.? Patient?s PCP is Dr. Brannon.? Patient does not possess specialty providers.? Patient is not established with outpatient dialysis.? Patient utilizes [facility] for medication services. ?business services manager will discuss discharge needs at an appropriate future time.? No further intervention required at this time, social work nurse will be available to address any further concerns.? Next of Kin: Maria E Wayne D/C Plan: Pending
[2024-09-10] MEDS: INSULIN LISPRO (AdmeLOG) 1 UNIT/0.01 ML UNIT SC ×2 (12:59→18:12)
[2024-09-10] MEDS: SODIUM CHLORIDE 0.9% IV ×2 (13:00→21:06)
[2024-09-10] MEDS: NALOXONE IV ×2 (13:00→21:06)
[2024-09-10 13:17] LABS: Lipase 563 U/L (12-53)
--- NOTE | 2024-09-10 13:30 | PD.RESCONSUL ---
HPI Data of Consult Requesting Physician: Steven Syed MD Admitting Provider: Steven Syed MD Attending Provider: Steven Syed MD Primary Care Provider: Physician No Primary/Family Consult Narrative Reason for consult: hyperkalemia, LEON History of present illness: Ric Wayne is 59 yr male with PMH of PE/DVT on Eliquis, Hx of PUD with GI bleed requiring transfusions, IDDM I, Katherine-en-Y gastric bypass (2007), and hx of seizures on Keppra BIBA from home due to altered mentation from baseline. History was provided by romie who was in ED stating that he has had poor oral intake since past few days. Patient has a history of chronic pain managed with opioids. Last known seizure unknown. Last dose of oxycodone was taken on morning prior to admission. In ED, patient was hypotensive with MAP 50. Physical exam was noticeable pinpoint pupils and subsequently administered Narcan with some improvement in mentation. Their was concern for stroke and stroke alert was called. Work up including CT head was negative. Labs were noted for Hgb 9.7, K 6.1, HCO3 <10, AG 28, BUN 117, Cr 7.2, C.Ca 7.6,, AST 149, ALT 109, Pro-Sarmad 2.07. Patient was upgraded to ICU for pressor support. Nephrology was consulted for LEON and hyperkalemia with acidosis. He underwent emergent dialysis shortly after admission. Medical Hx: as above Surgical Hx: Gastric bypass, left femur surgery, IVC filter Medication: Ramipril 10 mg twice daily, Eliquis 2.5 mg twice daily, propranolol 10 mg twice daily, Keppra 500 mg twice daily, Zofran 8 mg as needed, oxycodone Social Hx: Denies smoking cigarettes, drinking alcohol or using other illicit drugs, lives in [place] with daughter Allergies: NKDA cc:: cc: Steven Syed MD Exam Vital Signs Temp Pulse Resp BP Pulse Ox O2 Del Method 98.3 F 95 15 92/56 L 100 Room Air 09/10/24 07:30 09/10/24 11:15 09/10/24 11:15 09/10/24 11:15 09/10/24 11:15 09/10/24 07:30 Narrative Exam GENERAL: AAOX1, lethargic, can follow simple commands NEURO: Able to move all 4 extremities, pupils reactive bilaterally. Otherwise unable to assess HEENT: Dry mucosa. Eyes open, symmetrical, & clear, pupils equal CARDIO: Heart RRR, no obvious murmurs PULM: Bradypneic, saturating 96% on room air GI: Abdomen soft, nondistended, grimacing to superficial palpation . BSx4 URO/BLOCKER HEATED METAL FORMS: No further abnormalities noted. Lentz catheter in situ SKIN/MSK/EXT: Bilateral lower extremities rigid and tight, bruising at the knee and on shins Results Labs 09/12/24 04:35 09/12/24 04:35 Labs: Short CBC 09/09/24 09/10/24 Range/Units 17:36 04:51 WBC 10.4 3.5 L D (3.8-10.6) Thou/mm3 Hgb 9.7 L 8.8 L (13.5-16.0) g/dL Hct 32.4 L 28.4 L (41.0-53.0) % Plt Count 303 235 D (140-440) Thou/mm3 BMP 09/09/24 09/09/24 09/10/24 18:25 22:51 04:51 Sodium 134 L 136 137 Potassium 6.1 H* 6.1 H* 4.7 D Chloride 96 L 98 97 L Carbon Dioxide < 10.0 L* < 10.0 L* 14.9 L* BUN 119 H* 117 H* 85 H Creatinine 7.2 H* 7.0 H* 5.2 H* D Glucose 201 H 180 H 182 H Calcium 7.1 L 7.4 L 8.0 L 09/10/24 07:51 Sodium 137 Potassium 4.9 Chloride 98 Carbon Dioxide 13.7 L* BUN 76 H Creatinine 4.8 H* Glucose 193 H Calcium 7.6 L Cardiac Enzymes 09/09/24 09/10/24 Range/Units 18:25 07:51 Total Creatine Kinase 2777 H (34-171) U/L Troponin I < 0.020 (0.0-0.045) ng/mL Liver Function 09/09/24 09/10/24 09/10/24 Range/Units 18:25 04:51 07:51 Total Bilirubin 0.5 0.4 0.5 (0.3-1.2) mg/dL AST 149 H 124 H 112 H (0-34) U/L ALT 109 H 103 H 95 H (10-49) U/L Alkaline Phosphatase 161 H 159 H 149 H (46-116) U/L Albumin 3.4 3.4 3.2 L (3.4-4.8) gm/dL Urine 09/09/24 Range/Units 19:07 Urine Color Yellow (Lt Yel-Yel) Urine Clarity Turbid A (Clear/Hazy) Urine pH 5.0 (5.0-7.0) Ur Specific [place] 1.018 (1.001-1.035) Urine Protein 1+ A (Neg - Trace) Urine Glucose (UA) 4+ A (Negative) ABG Interpretation ABG results: 09/09/24 20:24 ABG pH Cancelled ABG pCO2 Cancelled ABG pO2 Cancelled ABG HCO3 Cancelled ABG O2 Saturation Cancelled ABG Base Excess Cancelled VBG pH 7.05 L VBG pCO2 22 L VBG pO2 55 VBG Base Excess -23 L Quality Measures Quality Measures sepsis Current suspected stage: severe sepsis Possible source: pulmonary Blood cultures ordered: yes Antibiotic ordered: Yes Medications Home Medications and Allergies Home Medications ?Medication ?Instructions ?Recorded ?Confirmed ?Type ramipril 10 mg capsule (Altace) 10 mg PO QDAY 05/22/19 09/09/24 History oxycodone 30 mg tablet (Roxicodone) 30 mg PO 4XD PRN Pain 01/04/22 09/09/24 History ondansetron HCl 8 mg tablet 8 mg PO DAILY PRN Nausea 09/22/22 09/09/24 History naloxone 4 mg/actuation nasal 1 spray intranasal Q2M PRN 12/10/22 09/09/24 History spray (Narcan) Respiratory Distress levetiracetam 500 mg tablet 500 mg PO BID 07/18/23 09/09/24 History potassium chloride 10 mEq 10 meq PO PRN PRN when taking lasix 07/19/23 09/09/24 History tablet,extended release propranolol 10 mg tablet 10 mg PO BID 07/19/23 09/09/24 History finerenone 10 mg tablet (Kerendia) 10 mg PO QDAY 04/03/24 09/09/24 History Allergies Allergy/AdvReac Type Severity Reaction Status Date / Time ibuprofen AdvReac Severe gastric Verified 03/24/25 16:47 bypass Visit Medications Acetaminophen (Acetaminophen 325 Mg Tablet) 650 mg PO Q4HR PRN PRN Reason: PAIN SCALE 1-3 (mild Stop: 10/10/24 01:24 Acetaminophen (Acetaminophen Supp 650 Mg Supp) 650 mg NH Q4HR PRN PRN Reason: PAIN SCALE 1-3 (mild Stop: 10/10/24 01:24 Al Hydrox/Mg Hydrox/Simethicone (Mg Hyd/Al Hyd/Maday (Maalox Reg) Susp 30 Ml Udc) 30 ml PO Q4HR PRN PRN Reason: Heartburn or Upset Stomach Stop: 10/10/24 01:24 Dextrose (Dextrose 50%-Water Inj 50 Ml Syringe) 25 ml IV Q15MIN PRN PRN Reason: BG 50-70 responsive npo pt Stop: 10/10/24 04:03 Dextrose (Dextrose 50%-Water Inj 50 Ml Syringe) 50 ml IV Q15MIN PRN PRN Reason: BG <50 OR BG <70 & pt unresponsive Stop: 10/10/24 04:03 Heparin Sodium (Porcine) (Heparin Sod Inj 5000 Unit/Ml Vial) 5,000 unit SC Q8HR BRANDON Stop: 09/24/24 05:59 Last Admin: 09/10/24 13:02 Dose: 5,000 unit Heparin Sodium (Porcine) (Heparin Sod Inj 1000 Unit/Ml Vial 10 Ml) 2,600 unit INDWELLCAT X1 PRN PRN Reason: DIALYSIS Stop: 09/24/24 05:30 Last Admin: 09/10/24 06:16 Dose: 2,600 unit Norepinephrine Bitartrate (Levophed In Ns 16mg/250ml) 16 mg in 250 mls @ 2.977 mls/hr IV .Q24H PRN; Protocol PRN Reason: PER protocol Stop: 10/09/24 20:16 Last Admin: 09/10/24 10:21 Dose: 0.17 mcg/kg/min, 10.121 mls/hr Vasopressin/Sodium Chloride (Vasostrict/Ns Ivpb) 20 unit in 100 mls @ 9 mls/hr IV .Q11H7M PRN; Protocol PRN Reason: PER PROTOCOL Stop: 10/10/24 01:06 Last Admin: 09/10/24 10:22 Dose: 0.03 unit/min, 9 mls/hr Phenylephrine HCl 40 mg/ (Sodium Chloride) 100 mls @ 4.763 mls/hr IV .Q21H PRN; Protocol PRN Reason: Per Sepsis Protocol Stop: 10/10/24 01:37 Azithromycin 500 mg/ Sodium (Chloride) 250 mls @ 250 mls/hr IV QDAY BRANDON Stop: 09/18/24 08:59 Albumin Human (Albuminar-25 Ivpb) 25 gm in 100 mls @ 100 mls/min IV PRN PRN PRN Reason: DIALYSIS Piperacillin/Tazobactam/Dextrose (Zosyn) 3.375 gm in 50 mls @ 12.5 mls/hr IV Q12HR [facility] Stop: 09/17/24 20:59 Naloxone HCl 2 mg/ Sodium (Chloride) 500 mls @ 62.5 mls/hr IV .Q8H [facility] Stop: 10/10/24 12:44 Last Admin: 09/10/24 13:00 Dose: 62.5 mls/hr Insulin Human Lispro (Insulin Lispro (Admelog) 1 Unit/0.01 Ml Unit) 0 unit SC Q6HR BRANDON; Protocol Stop: 10/10/24 05:59 Last Admin: 09/10/24 12:59 Dose: 3 unit Levetiracetam (Levetiracetam Inj 100 Mg/Ml Vial 5ml) 500 mg IVP Q12HR [facility] Stop: 10/10/24 08:59 Last Admin: 09/10/24 09:52 Dose: 500 mg Magnesium Hydroxide (Milk Of Magnesia Susp 30 Ml Udc) 30 ml PO QDAY PRN PRN Reason: CONSTIPATION Stop: 10/10/24 01:24 Ondansetron HCl (Ondansetron Inj 2 Mg/Ml Inj 2 Ml) 4 mg IV Q6HR PRN PRN Reason: NAUSEA OR VOMITING Stop: 10/10/24 01:24 Discontinued Medications Calcium Gluconate (Calcium Gluconate 10% Inj 1 Gm/10 Ml Vial) 1 gm IV X1 ONE Stop: 09/09/24 20:40 Last Admin: 09/09/24 20:58 Dose: 1 gm Dextrose (Dextrose 50%-Water Inj 50 Ml Syringe) 25 ml IV Q15MIN PRN PRN Reason: BG 50-70 responsive npo pt Stop: 10/09/24 19:50 Dextrose (Dextrose 50%-Water Inj 50 Ml Syringe) 50 ml IV X1 ONE Stop: 09/10/24 00:14 Last Admin: 09/10/24 00:34 Dose: 50 ml Furosemide (Furosemide Inj 10 Mg/Ml Vial 2 Ml) 20 mg IVP X1 ONE Stop: 09/09/24 20:45 Last Admin: 09/09/24 20:58 Dose: 20 mg Hydromorphone HCl (Hydromorphone Inj 2 Mg/Ml Vial) 0.5 mg IVP Q4HR PRN PRN Reason: PAIN Stop: 09/15/24 01:54 Hydromorphone HCl (Hydromorphone Inj 2 Mg/Ml Vial) 0.5 mg IVP X1 ONE Stop: 09/10/24 02:17 Last Admin: 09/10/24 06:07 Dose: Not Given Naloxone HCl 0.4 mg/ Dextrose 498.4 mls @ 10 mls/hr IV .Q24H [facility] Stop: 10/09/24 17:44 Last Admin: 09/09/24 17:56 Dose: Not Given Lactated Ringer's (Lactated Ringers) 1,000 mls @ 999 mls/hr IV .Q1H1M ONE Stop: 09/09/24 19:17 Last Infusion: 09/09/24 19:23 Dose: Infused Sodium Bicarbonate 88.23 meq/ (Dextrose) 588.23 mls @ 125 mls/hr IV .Q4H43M [facility]ON Stop: 10/10/24 10:54 Sodium Bicarbonate 88.23 meq/ (Dextrose) 588.23 mls @ 125 mls/hr IV .Q4H43M [facility]ON Stop: 09/10/24 10:54 Last Admin: 09/10/24 01:48 Dose: 125 mls/hr Ceftriaxone Sodium/Dextrose (Rocephin/D5w 1gm Iv Premix) 1 gm in 50 mls @ 100 mls/hr IV QDAY@2100 [facility] Stop: 09/17/24 20:59 Ceftriaxone Sodium/Dextrose (Rocephin/D5w 1gm Iv Premix) 1 gm in 50 mls @ 100 mls/hr IV X1 ONE Stop: 09/10/24 02:14 Last Infusion: 09/10/24 02:13 Dose: Infused Lactated Ringer's (Lactated Ringers) 1,000 mls @ 999 mls/hr IV .Q1H1M ONE Stop: 09/10/24 02:40 Last Infusion: 09/10/24 02:38 Dose: Infused Azithromycin 500 mg/ Sodium (Chloride) 250 mls @ 250 mls/hr IV X1 ONE Stop: 09/10/24 04:44 Last Admin: 09/10/24 04:43 Dose: 250 mls/hr Piperacillin/Tazobactam/Dextrose (Zosyn) 3.375 gm in 50 mls @ 100 mls/hr IV X1 ONE Stop: 09/10/24 07:29 Last Admin: 09/10/24 10:31 Dose: 100 mls/hr Lactated Ringer's (Lactated Ringers) 500 mls @ 999 mls/hr IV .Q31M ONE Stop: 09/10/24 10:45 Last Admin: 09/10/24 10:24 Dose: 999 mls/hr Insulin Human Regular (Insulin Hum Regular 1 Unit/0.01 Ml (Per Unit)) 5 unit IV X1 ONE Stop: 09/10/24 00:12 Last Admin: 09/10/24 00:31 Dose: 5 unit Levetiracetam (Levetiracetam 250 Mg Tablet) 500 mg PO BID BRANDON Stop: 10/10/24 08:59 Naloxone HCl (Naloxone Inj 0.4 Mg/Ml Vial) 0.04 mg IV X1 ONE Stop: 09/09/24 17:31 Last Admin: 09/09/24 17:40 Dose: Not Given Naloxone HCl (Naloxone Inj 0.4 Mg/Ml Vial) 0.4 mg IV X1 ONE Stop: 09/09/24 18:01 Last Admin: 09/09/24 17:48 Dose: 0.4 mg Naloxone HCl (Naloxone Inj 1 Mg/Ml Syringe 2 Ml) 0.4 mg IV X1 ONE Stop: 09/10/24 09:50 Last Admin: 09/10/24 09:52 Dose: 0.4 mg Sodium Chloride (Sodium Chloride Rt 10% 15 Ml Nebu) 5 ml INH X1 ONE Stop: 09/10/24 05:44 Last Admin: 09/10/24 10:32 Dose: Not Given Assessment & Plan Plan Ric Wayne is 59 yr male with PMH of PE/DVT on Eliquis, Hx of PUD with GI bleed requiring transfusions, IDDM I, Katherine-en-Y gastric bypass (2007), and hx of seizures on Keppra BIBA from home due to altered mentation from baseline. He has had poor oral intake for serveral days. Nephrology was consulted for LEON and hyperkalemia with acidosis. He underwent emergent dialysis shortly after admission. #Acute metabolic encephalopathy-improving #Uremia #Acute on chronic renal failure #AGMA Most likely due to decrease intake and unknown time of hypotension since past few days. Refractory hypotension causing hypoperfusion leading to possible ATN. On admission, CMP showed a BUN of 119 and creatinine of 7.2. Renal ultrasound showed bilateral cortical thinning and parenchymal scarring consistent with CKD. Patient received 4 L of IV fluids Nephrology was consulted for emergent hemodialysis and patient had 1 session of ultrafiltration done. Repeat BUN and creatinine this morning are 85 and 5.2 respectively Labs today, bicarb at 14.9 with anion gap of 28. -next planned HD session tomorrow 09/11 via fem cath -Repeat renal panel 12 hours -IV fluids LR 500 cc bolus -as patient dose not appear to be fluid overloaded, continue fluids along with bicarbonate -Avoid nephrotoxic medications -Renally dose medications -follow up on C3, C4, ANCA, and anti-GBM #Hyperkalemia-resolved #Likely accidental overdose #History of seizures #Community-acquired pneumonia #Leukopenia, likely dilutional #Anemia #Transaminitis #History of type II DM The patient's management plan was discussed with my attending physician Dr. Liang. Talya Mcdonald, PGY-1 Attending Provider Attestation/Addendum Pt seen and examined. Labs are reviewed. Agree with assessment and plan and findings by resident. Theo Liang MD
[2024-09-10 13:59] LABS: Hepatitis A Antibody IgM Non Reactive (Non React); Hepatitis B Core Antibody IgM Non Reactive (Non React); Hepatitis B Surface Ab Reactive (Immune) (Immune); Hepatitis B Surface Antigen Non Reactive (Non React); Hepatitis C Antibody Non Reactive (Non React)
--- NOTE | 2024-09-10 14:39 | ESPR_ITS ---
Documentation for date of: 09/10/24 Subjective Subjective Interval history: Patient seen and assessed at bedside in ICU. Family members present at bedside. At baseline patient is more alert and oriented and able to call conversation. Patient lethargic but easily arousable. Exam Vital Signs Temp Pulse Resp BP Pulse Ox O2 Del Method 98.3 F 95 15 92/56 L 100 Room Air 09/10/24 07:30 09/10/24 11:15 09/10/24 11:15 09/10/24 11:15 09/10/24 11:15 09/10/24 07:30 Narrative Exam GENERAL: AAOX2, lethargic, can follow simple commands NEURO: Able to move all 4 extremities, pupils reactive bilaterally. Otherwise unable to assess HEENT: Dry mucosa. Eyes open, symmetrical, & clear, pupils equal CARDIO: Heart RRR, no obvious murmurs PULM: Mild wheezing on auscultation, saturating 96% on room air GI: Abdomen soft, nondistended, active bowel sounds. URO/NEGATIVE RESTORER: No further abnormalities noted. Lentz catheter in situ SKIN/MSK/EXT: No lower extremity edema noted. Objective Labs 09/10/24 04:51 09/10/24 07:51 Labs: Laboratory Results - last 24 hr 09/09/24 09/09/24 09/09/24 17:34 17:36 18:25 WBC 10.4 RBC 3.86 L Hgb 9.7 L Hct 32.4 L MCV 84 MCH 25.1 MCHC 29.9 L RDW Std Deviation 62.7 H Plt Count 303 Neut % (Auto) 87 H Lymph % (Auto) 4 L [place] % (Auto) 9 Eos % (Auto) 0 Baso % (Auto) 0 Neut # (Auto) 9.0 H Lymph # (Auto) 0.4 L [place] # (Auto) 0.9 H Eos # (Auto) 0.0 Baso # (Auto) 0.0 Immature Gran # (Auto) 0.03 H Absolute Nucleated RBC 0.11 H Immature Gran % 0 Nucleated RBC % 1 H PT 13.0 H INR 1.2 APTT 36.5 H Puncture Site ABG pH ABG pCO2 ABG pO2 ABG HCO3 ABG O2 Saturation ABG Base Excess VBG pH VBG pCO2 VBG pO2 VBG O2 Sat ([place]) VBG Base Excess Oxygen Liter Flow FiO2 Sodium 134 L Potassium 6.1 H* Chloride 96 L Carbon Dioxide < 10.0 L* Anion Gap 28 H BUN 119 H* Creatinine 7.2 H* Estim Creat Clear Calc 9.8 L eGFR 8 L* BUN/Creatinine Ratio 17 Glucose 201 H Calculated Osmolality 312 H Lactic Acid Calcium 7.1 L Corrected Calcium 7.6 L Magnesium 2.4 Iron TIBC Iron Saturation Unsat Iron Binding Total Bilirubin 0.5 AST 149 H ALT 109 H Alkaline Phosphatase 161 H Total Creatine Kinase Troponin I < 0.020 Total Protein 5.5 L Albumin 3.4 Globulin 2.1 L Albumin/Globulin Ratio 1.6 Lipase Procalcitonin Ur Collection Type Urine Color Urine Clarity Urine pH Ur Specific [place] Urine Protein Urine Glucose (UA) Urine Ketones Urine Blood Urine Nitrite Urine Bilirubin Urine Urobilinogen (Auto) Ur Leukocyte Esterase Urine RBC Urine WBC Ur Squamous Epith Cells Urine Bacteria Urine Opiates Screen Urine Fentanyl Screen Ur Barbiturates Screen U Amphetamin/Meth Scrn U Benzodiazepines Scrn U Cocaine Metab Screen U Marijuana (THC) Screen Hepatitis A IgM Ab Hep Bs Antigen Hep Bs Antibody Hep B Core IgM Ab Hepatitis C Antibody 09/09/24 09/09/24 09/09/24 19:07 20:24 22:51 WBC RBC Hgb Hct MCV MCH MCHC RDW Std Deviation Plt Count Neut % (Auto) Lymph % (Auto) [place] % (Auto) Eos % (Auto) Baso % (Auto) Neut # (Auto) Lymph # (Auto) [place] # (Auto) Eos # (Auto) Baso # (Auto) Immature Gran # (Auto) Absolute Nucleated RBC Immature Gran % Nucleated RBC % PT INR APTT Puncture Site Cancelled ABG pH Cancelled ABG pCO2 Cancelled ABG pO2 Cancelled ABG HCO3 Cancelled ABG O2 Saturation Cancelled ABG Base Excess Cancelled VBG pH 7.05 L VBG pCO2 22 L VBG pO2 55 VBG O2 Sat ([place]icha) 76 L VBG Base Excess -23 L Oxygen Liter Flow Cancelled FiO2 Cancelled Sodium 136 Potassium 6.1 H* Chloride 98 Carbon Dioxide < 10.0 L* Anion Gap 28 H BUN 117 H* Creatinine 7.0 H* Estim Creat Clear Calc 10.1 L eGFR 8 L* BUN/Creatinine Ratio 17 Glucose 180 H Calculated Osmolality 314 H Lactic Acid 1.5 Calcium 7.4 L Corrected Calcium Magnesium Iron TIBC Iron Saturation Unsat Iron Binding Total Bilirubin AST ALT Alkaline Phosphatase Total Creatine Kinase Troponin I Total Protein Albumin Globulin Albumin/Globulin Ratio Lipase Procalcitonin 2.07 H Ur Collection Type Voided Urine Color Yellow Urine Clarity Turbid A Urine pH 5.0 Ur Specific [place] 1.018 Urine Protein 1+ A Urine Glucose (UA) 4+ A Urine Ketones Trace Urine Blood Trace Urine Nitrite Negative Urine Bilirubin Negative Urine Urobilinogen (Auto) Negative Ur Leukocyte Esterase Negative Urine RBC 1 Urine WBC 5 Ur Squamous Epith Cells 3 Urine Bacteria None Urine Opiates Screen Positive A Urine Fentanyl Screen Negative Ur Barbiturates Screen Negative U Amphetamin/Meth Scrn Negative U Benzodiazepines Scrn Negative U Cocaine Metab Screen Negative U Marijuana (THC) Screen Negative Hepatitis A IgM Ab Hep Bs Antigen Hep Bs Antibody Hep B Core IgM Ab Hepatitis C Antibody 09/10/24 09/10/24 09/10/24 04:51 07:51 09:00 WBC 3.5 L D RBC 3.54 L Hgb 8.8 L Hct 28.4 L MCV 80 MCH 24.9 L MCHC 31.0 RDW Std Deviation 59.7 H Plt Count 235 D Neut % (Auto) 84 H Lymph % (Auto) 4 L [place] % (Auto) 12 Eos % (Auto) 0 Baso % (Auto) 0 Neut # (Auto) 2.9 Lymph # (Auto) 0.1 L [place] # (Auto) 0.4 Eos # (Auto) 0.0 Baso # (Auto) 0.0 Immature Gran # (Auto) 0.01 H Absolute Nucleated RBC 0.12 H Immature Gran % 0 Nucleated RBC % 4 H PT INR APTT Puncture Site ABG pH ABG pCO2 ABG pO2 ABG HCO3 ABG O2 Saturation ABG Base Excess VBG pH VBG pCO2 VBG pO2 VBG O2 Sat ([place]) VBG Base Excess Oxygen Liter Flow FiO2 Sodium 137 137 Potassium 4.7 D 4.9 Chloride 97 L 98 Carbon Dioxide 14.9 L* 13.7 L* Anion Gap 25 H 25 H BUN 85 H 76 H Creatinine 5.2 H* D 4.8 H* Estim Creat Clear Calc 13.7 L 14.8 L eGFR 12 L* 13 L* BUN/Creatinine Ratio 16 16 Glucose 182 H 193 H Calculated Osmolality 304 H 301 H Lactic Acid 1.2 Calcium 8.0 L 7.6 L Corrected Calcium 8.5 8.2 L Magnesium Iron 9 L TIBC 324 Iron Saturation 2 L Unsat Iron Binding 315 H Total Bilirubin 0.4 0.5 AST 124 H 112 H ALT 103 H 95 H Alkaline Phosphatase 159 H 149 H Total Creatine Kinase 2777 H Troponin I Total Protein 5.6 L 5.3 L Albumin 3.4 3.2 L Globulin 2.2 L 2.1 L Albumin/Globulin Ratio 1.5 1.5 Lipase 563 H Procalcitonin Ur Collection Type Urine Color Urine Clarity Urine pH Ur Specific [place] Urine Protein Urine Glucose (UA) Urine Ketones Urine Blood Urine Nitrite Urine Bilirubin Urine Urobilinogen (Auto) Ur Leukocyte Esterase Urine RBC Urine WBC Ur Squamous Epith Cells Urine Bacteria Urine Opiates Screen Urine Fentanyl Screen Ur Barbiturates Screen U Amphetamin/Meth Scrn U Benzodiazepines Scrn U Cocaine Metab Screen U Marijuana (THC) Screen Hepatitis A IgM Ab Non Reactive Hep Bs Antigen Non Reactive Hep Bs Antibody Reactive (Immune) Hep B Core IgM Ab Non Reactive Hepatitis C Antibody Non Reactive ABG Interpretation ABG results: 09/09/24 20:24 ABG pH Cancelled ABG pCO2 Cancelled ABG pO2 Cancelled ABG HCO3 Cancelled ABG O2 Saturation Cancelled ABG Base Excess Cancelled VBG pH 7.05 L VBG pCO2 22 L VBG pO2 55 VBG Base Excess -23 L Quality Measures Quality Measures VTE prophylaxis Assessment & Plan Assessment Current Active Medications: Generic Name Dose Route Start Last Admin Trade Name Freq PRN Reason Stop Dose Admin Acetaminophen 650 mg 09/10/24 01:25 Acetaminophen 325 Mg Tablet PO 10/10/24 01:24 Q4HR PRN PAIN SCALE 1-3 (mild Acetaminophen 650 mg 09/10/24 01:25 Acetaminophen Supp 650 Mg Supp [place] 10/10/24 01:24 Q4HR PRN PAIN SCALE 1-3 (mild Al Hydrox/Mg Hydrox/Simethicone 30 ml 09/10/24 01:25 Mg Hyd/Al Hyd/Maday (Maalox Reg) Susp 30 Ml Udc PO 10/10/24 01:24 Q4HR PRN Heartburn or Upset Stomach Dextrose 25 ml 09/10/24 04:04 Dextrose 50%-Water Inj 50 Ml Syringe IV 10/10/24 04:03 Q15MIN PRN BG 50-70 responsive npo pt Dextrose 50 ml 09/10/24 04:04 Dextrose 50%-Water Inj 50 Ml Syringe IV 10/10/24 04:03 Q15MIN PRN BG <50 OR BG <70 & pt unresponsive Heparin Sodium (Porcine) 5,000 unit 09/10/24 06:00 09/10/24 13:02 Heparin Sod Inj 5000 Unit/Ml Vial SC 09/24/24 05:59 5,000 unit Q8HR BRANDON Administration Heparin Sodium (Porcine) 2,600 unit 09/10/24 05:31 09/10/24 06:16 Heparin Sod Inj 1000 Unit/Ml Vial 10 Ml INDWELLCAT 09/24/24 05:30 2,600 unit X1 PRN Administration DIALYSIS Norepinephrine Bitartrate 16 mg in 250 mls @ 2.977 mls/hr 09/09/24 20:17 09/10/24 10:21 Levophed In Ns 16mg/250ml IV 10/09/24 20:16 0.17 mcg/kg/min .Q24H PRN 10.121 mls/hr PER protocol Administration Protocol 0.05 MCG/KG/MIN Vasopressin/Sodium Chloride 20 unit in 100 mls @ 9 mls/hr 09/10/24 01:07 09/10/24 10:22 Vasostrict/Ns Ivpb IV 10/10/24 01:06 0.03 unit/min .Q11H7M PRN 9 mls/hr PER PROTOCOL Administration Protocol 0.03 UNIT/MIN Phenylephrine HCl 40 mg/ 100 mls @ 4.763 mls/hr 09/10/24 01:38 Sodium Chloride IV 10/10/24 01:37 .Q21H PRN Per Sepsis Protocol Protocol 0.5 MCG/KG/MIN Azithromycin 500 mg/ Sodium 250 mls @ 250 mls/hr 09/11/24 09:00 Chloride IV 09/18/24 08:59 QDAY BRANDON Albumin Human 25 gm in 100 mls @ 100 mls/min 09/10/24 05:33 Albuminar-25 Ivpb IV PRN PRN DIALYSIS Piperacillin/Tazobactam/Dextrose 3.375 gm in 50 mls @ 12.5 mls/hr 09/10/24 21:00 Zosyn IV 09/17/24 20:59 Q12HR BRANDON Naloxone HCl 2 mg/ Sodium 500 mls @ 62.5 mls/hr 09/10/24 12:45 09/10/24 13:00 Chloride IV 10/10/24 12:44 62.5 mls/hr .Q8H BRANDON Administration Insulin Human Lispro 0 unit 09/10/24 06:00 09/10/24 12:59 Insulin Lispro (Admelog) 1 Unit/0.01 Ml Unit SC 10/10/24 05:59 3 unit Q6HR BRANDON Administration Protocol Levetiracetam 500 mg 09/10/24 09:00 09/10/24 09:52 Levetiracetam Inj 100 Mg/Ml Vial 5ml IVP 10/10/24 08:59 500 mg Q12HR BRANDON Administration Magnesium Hydroxide 30 ml 09/10/24 01:25 Milk Of Magnesia Susp 30 Ml Udc PO 10/10/24 01:24 QDAY PRN CONSTIPATION Ondansetron HCl 4 mg 09/10/24 01:25 Ondansetron Inj 2 Mg/Ml Inj 2 Ml IV 10/10/24 01:24 Q6HR PRN NAUSEA OR VOMITING Plan #Acute encephalopathy #History of seizures Multifactorial: Metabolic/toxic/infectious Patient self medicates due to back pain and responded well to Narcan Positive for opiates on UA Calcium decreased BUN elevated Patient also septic with tachycardia and leukopenia with left shift Continue with home dose Keppra #Sepsis #Shock #Diabetes #Hyperkalemia #Pneumonia #Acute renal failure Continue management per primary team Case discussed with attending Dr Mike Peña MD PGY3 Attending Provider Attestation/Addendum Patient chart was independently reviewed and agreed with resident's findings, assessment and plan of care. Continue to treat his metabolic factors and continue with Keppra and follow seizure precautions
[2024-09-11] VITALS (47 sets, daily range): BP systolic 91–127; BP diastolic 53–79; PULSE 75–123; RESP 7–97; TEMP 36.4–37; O2SAT 93–100; BMI 20.6
[2024-09-11] MEDS: INSULIN LISPRO (AdmeLOG) 1 UNIT/0.01 ML UNIT SC ×3 (00:26→12:08)
[2024-09-11 00:30] LABS: Influenza A Ag Negative; Influenza B Ag Negative
--- NOTE | 2024-09-11 04:51 | PC.RT ---
PT STILL UNABLE TO PRODUCE SPUTUM FOR SAMPLE.
[2024-09-11 05:15] LABS: Basophils % (Auto) 0 % (0-2.5); Eosinophils % (Auto) 0 % (0-10); Hematocrit 21.3 % (41.0-53.0); Immature Granulocytes % (Auto) 2 % (0-0); Immature Granulocytes Auto 0.09 Thou/mm3 (0.00-0.00); Lymphocytes # (Auto) 0.3 Thou/mm3 (1.0-4.8); Lymphocytes % (Auto) 6 % (10-50); Mean Corpuscular HGB Conc 32.4 g/dl (31.0-37.0); Mean Corpuscular Volume 77 fL (80-100); Monocytes % (Auto) 21 % (0-12); Neutrophils # (Auto) 3.5 Thou/mm3 (1.8-7.7); Neutrophils % (Auto) 71 % (37-80); Nucleated Red Blood Cell % 0 /100 WBC (0); Platelet Count 119 Thou/mm3 (140-440); RDW Standard Deviation 57.6 fL (35.1-43.9); Red Blood Count 2.76 Miln/mm3 (4.50-5.90)
[2024-09-11 05:35] LABS: Hemoglobin 6.9 g/dL (13.5-16.0)
[2024-09-11] MEDS: SODIUM CHLORIDE 0.9% IV (05:58)
[2024-09-11] MEDS: NALOXONE IV (05:58)
[2024-09-11 06:02] LABS: Alanine Aminotransferase 77 U/L (10-49); Albumin, Serum 2.7 gm/dL (3.4-4.8); Albumin/Globulin Ratio 1.4 (1.2-2.2); Alkaline Phosphatase 104 U/L (46-116); Anion Gap 19 (7-16); Aspartate Amino Transferase 75 U/L (0-34); BUN/Creatinine Ratio 20 Ratio (12-20); Bilirubin,Total 0.4 mg/dL (0.3-1.2); Blood Urea Nitrogen 85 mg/dL (9-23); Calcium 7.6 mg/dL (8.3-10.6); Calcium (Corrected) 8.6 mg/dL (8.5-10.1); Carbon Dioxide 20.4 mMol/L (20.0-31.0); Chloride 103 mMol/L (98-107); Creatinine (Component) 4.3 mg/dL (0.6-1.3); Glucose 199 mg/dL (74-106); Magnesium 1.8 mg/dL (1.6-2.6); Osmolality,Calculated 314 (275-295); Phosphorous 4.6 mg/dL (2.4-5.1); Potassium 3.5 mMol/L (3.4-5.1); Sodium 142 mMol/L (136-145); Total Protein 4.7 gm/dL (5.7-8.2); eGFR 15 See Note
[2024-09-11 06:10] LABS: Estimated Creatinine Clearance 16.3 mL/min (>60)
[2024-09-11 06:58] LABS: Hemoglobin 6.8 g/dL (13.5-16.0)
--- NOTE | 2024-09-11 08:45 | CHAP ---
Paatient was sleeping. Prayed quietly by bed.
[2024-09-11] MEDS: levETIRAcetam INJ 100 MG/ML VIAL 5ML 500 MG IVP ×2 (09:10→20:48)
[2024-09-11] MEDS: PANTOPRAZOLE INJ 40 MG VIAL IV ×2 (09:18→20:48)
--- NOTE | 2024-09-11 11:49 | ESPR_ITS ---
<Statement entered by Abbe Jacobson MD - 09/12/24 13:42> TOTAL TIME: 45MINUTES ON DIRECT MEDICAL CARE, MANAGEMENT - COORDINATION AND COUNSELING > 50% OF TOTAL TIME I saw and evaluated the patient. I reviewed the resident?s note and agree with findings and plan as documented in the resident?s note. Distributive shock due to the effects of polypharmacy has substantially improved as has the patient's encephalopathy. He is stable to be transferred to the medical surgical floor. The patient's daughter has been visiting daily and we updated her again this morning regarding the improvement in his condition. No overt bleeding although he does have a prior history of GI bleeding requiring capsule endoscopy per Dr. Alston's prior recommendations. Blood has been ordered and GI consult will be obtained <Statement entered by Lesley Tolliver MD - 09/11/24 14:49> Patient seen and examined at bedside, patient is AO x 3, mentation back at baseline. Morning labs revealed severe anemia with hemoglobin of 6.8, patient will be given PRBC, plan is to consult Dr. Alston on whether or not patient requires another EGD, as the last 1 was done in March and the patient was recommended to have a capsule endoscopy. Additional creatinine today was 4.3, Dr. Lanier is on board, patient will have hemodialysis session today. Biotics will be discontinued due to low suspicion of infection, still pending cultures. Patient passed bedside swallow evaluation, and will be started on clear liquid diet. Patient is currently stable to be downgraded to the floors. Internal medicine team will take over management. I personally saw and examined the patient and discussed the assessment and plan with the entire medicine team, including my attending Dr. Indira Tolliver M.D. PGY-2 Disclaimer: Despite multiple revisions, due to the dictation software being used, the document bellow may not be free of grammatical errors including phonetic/typographic errors. However, this does not deter from our commitment to providing health care in the patient's best interest in mind. Documentation for date of: 09/11/24 Subjective Subjective Interval history: Patient seen and examined at bedside. He is a 59-year-old male with past medical history of hypertension, diabetes, gastric bypass, DVT on Eliquis, PUD and GI bleed, seizures and chronic back pain who was Biba from home with altered mental status to the ED on 09/09/2024. Reported to have had decreased oral intake and uses oxycodone and [place] for chronic pain On presentation, patient reported to have had pinpoint pupils and a GCS of 3, dose of Narcan was given. Per stroke protocol, head CT was done which was negative. CMP revealed acute renal failure with hyperkalemia acidemia and anion gap metabolic acidosis. In total, the patient received 4 L of IV fluids, insulin for hyperkalemia and had an HD catheter inserted for emergent dialysis. Patient had a session of HD ultrafiltration done just completed at 6 AM this morning. At bedside today, patient's GCS is 13, he is able to follow commands but lethargic and confused, AAO x 1. On further examination, noted to have hypersensitivity to non noxious stimuli and bradypneic, also has some muscle rigidity, will follow-up with creatinine kinase. Given another dose of Narcan at bedside, respiratory status seems to improve as well as patient is more awake. Physician Pediatrician Dr. Liang contacted, will hold off on dialysis today and likely repeat another session tomorrow, for now will give a 500cc bolus of LR. Will continue to monitor patient's mentation, to give another dose of Narcan if required. Will also continue to investigate any other sources for likely sepsis. 09/11/2024- Patient seen and examined at bedside. No acute overnight events. Today, patient is AAOx3, mentation back at baseline, significantly improved from last 24 hours. He continued to be on the Narcan drip over the night. Labs reviewed this morning, hemoglobin at 6.9, repeat at 6.8. No signs of active bleeding. Will curb consult GI Dr. Alston on whether or not patient requires another EGD, as the last one that was done was in March and the patient was recommended to have a capsule endoscopy which has not been done. Additionally, creatinine at 4.3 today, patient will have another session of hemodialysis as scheduled by nephrology. He also passed at bedside swallow evaluation and was started on clear liquid diet, to be advanced as tolerated. As it is unlikely that any of the patient's symptoms were due to an infection, antibiotics have been discontinued, still pending blood cultures. The patient is stable to be downgraded to the floors, internal medicine team will take over management. Exam Vital Signs Temp Pulse Resp BP Pulse Ox O2 Del Method 97.5 F 75 16 106/67 95 Room Air 09/11/24 08:00 09/11/24 10:00 09/11/24 11:00 09/11/24 11:00 09/11/24 11:00 09/11/24 11:00 Narrative Exam GENERAL: AAOX3, back to baseline NEURO: Able to move all 4 extremities, pupils reactive bilaterally. CENTRAL SUPPLY CLERK grossly intact HEENT: Dry mucosa. Eyes open, symmetrical, & clear, pupils equal CARDIO: Heart RRR, no obvious murmurs PULM: No dyspnea, Lungs CTAB/L GI: Abdomen soft, nondistended, grimacing to superficial palpation . BSx4 URO/DRAWER WAXER: No further abnormalities noted. Lentz catheter in situ SKIN/MSK/EXT: Bilateral lower extremities rigid and tight, bruising at the knee and on shins Objective Labs 09/12/24 04:35 09/12/24 04:35 Labs: Laboratory Results - last 24 hr 09/10/24 09/10/24 09/10/24 07:51 09:00 23:50 WBC RBC Hgb Hct MCV MCH MCHC RDW Std Deviation Plt Count Neut % (Auto) Lymph % (Auto) Mathews % (Auto) Eos % (Auto) Baso % (Auto) Neut # (Auto) Lymph # (Auto) Mathews # (Auto) Eos # (Auto) Baso # (Auto) Immature Gran # (Auto) Absolute Nucleated RBC Immature Gran % Nucleated RBC % Sodium Potassium Chloride Carbon Dioxide Anion Gap BUN Creatinine Estim Creat Clear Calc eGFR BUN/Creatinine Ratio Glucose Calculated Osmolality Lactic Acid Calcium Corrected Calcium Phosphorus Magnesium Total Bilirubin AST ALT Alkaline Phosphatase Total Protein Albumin Globulin Albumin/Globulin Ratio Lipase 563 H Hepatitis A IgM Ab Non Reactive Hep Bs Antigen Non Reactive Hep Bs Antibody Reactive (Immune) Hep B Core IgM Ab Non Reactive Hepatitis C Antibody Non Reactive Influenza A (Rapid) Negative Influenza B (Rapid) Negative Blood Type Antibody Screen Crossmatch Blood Bank Wristband ID 09/11/24 09/11/24 04:40 06:20 WBC 5.0 D RBC 2.76 L Hgb 6.9 L* D 6.8 L* Hct 21.3 L* 21.0 L* MCV 77 L MCH 25.0 MCHC 32.4 RDW Std Deviation 57.6 H Plt Count 119 L D Neut % (Auto) 71 Lymph % (Auto) 6 L Mathews % (Auto) 21 H Eos % (Auto) 0 Baso % (Auto) 0 Neut # (Auto) 3.5 Lymph # (Auto) 0.3 L Mathews # (Auto) 1.0 H Eos # (Auto) 0.0 Baso # (Auto) 0.0 Immature Gran # (Auto) 0.09 H Absolute Nucleated RBC 0.00 Immature Gran % 2 H Nucleated RBC % 0 Sodium 142 Potassium 3.5 D Chloride 103 Carbon Dioxide 20.4 Anion Gap 19 H BUN 85 H Creatinine 4.3 H* D Estim Creat Clear Calc 16.3 L eGFR 15 L BUN/Creatinine Ratio 20 Glucose 199 H Calculated Osmolality 314 H Lactic Acid 1.0 Calcium 7.6 L Corrected Calcium 8.6 Phosphorus 4.6 Magnesium 1.8 Total Bilirubin 0.4 AST 75 H ALT 77 H Alkaline Phosphatase 104 D Total Protein 4.7 L Albumin 2.7 L D Globulin 2.0 L Albumin/Globulin Ratio 1.4 Lipase Hepatitis A IgM Ab Hep Bs Antigen Hep Bs Antibody Hep B Core IgM Ab Hepatitis C Antibody Influenza A (Rapid) Influenza B (Rapid) Blood Type O Positive Antibody Screen NEGATIVE Crossmatch See Detail Blood Bank Wristband ID Yes ABG Interpretation ABG results: 09/09/24 20:24 ABG pH Cancelled ABG pCO2 Cancelled ABG pO2 Cancelled ABG HCO3 Cancelled ABG O2 Saturation Cancelled ABG Base Excess Cancelled VBG pH 7.05 L VBG pCO2 22 L VBG pO2 55 VBG Base Excess -23 L Quality Measures Quality Measures VTE prophylaxis Assessment & Plan Assessment Current Active Medications: Generic Name Dose Route Start Last Admin Trade Name Fresushant PRN Reason Stop Dose Admin Acetaminophen 650 mg 09/10/24 01:25 Acetaminophen 325 Mg Tablet PO 10/10/24 01:24 Q4HR PRN PAIN SCALE 1-3 (mild Acetaminophen 650 mg 09/10/24 01:25 Acetaminophen Supp 650 Mg Supp NM 10/10/24 01:24 Q4HR PRN PAIN SCALE 1-3 (mild Al Hydrox/Mg Hydrox/Simethicone 30 ml 09/10/24 01:25 Mg Hyd/Al Hyd/Maday (Maalox Reg) Susp 30 Ml Udc PO 10/10/24 01:24 Q4HR PRN Heartburn or Upset Stomach Dextrose 25 ml 09/10/24 04:04 Dextrose 50%-Water Inj 50 Ml Syringe IV 10/10/24 04:03 Q15MIN PRN BG 50-70 responsive npo pt Dextrose 50 ml 09/10/24 04:04 Dextrose 50%-Water Inj 50 Ml Syringe IV 10/10/24 04:03 Q15MIN PRN BG <50 OR BG <70 & pt unresponsive Heparin Sodium (Porcine) 2,600 unit 09/10/24 05:31 09/10/24 06:16 Heparin Sod Inj 1000 Unit/Ml Vial 10 Ml INDWELLCAT 09/24/24 05:30 2,600 unit X1 PRN Administration DIALYSIS Albumin Human 25 gm in 100 mls @ 100 mls/min 09/10/24 05:33 Albuminar-25 Ivpb IV PRN PRN DIALYSIS Insulin Human Lispro 0 unit 09/10/24 06:00 09/11/24 05:44 Insulin Lispro (Admelog) 1 Unit/0.01 Ml Unit SC 10/10/24 05:59 3 unit Q6HR BRANDON Administration Protocol Levetiracetam 500 mg 09/10/24 09:00 09/11/24 09:10 Levetiracetam Inj 100 Mg/Ml Vial 5ml IVP 10/10/24 08:59 500 mg Q12HR BRANDON Administration Magnesium Hydroxide 30 ml 09/10/24 01:25 Milk Of Magnesia Susp 30 Ml Udc PO 10/10/24 01:24 QDAY PRN CONSTIPATION Naloxone HCl 0.4 mg 09/11/24 09:11 Naloxone Inj 1 Mg/Ml Syringe 2 Ml IV X1 PRN for respiration less than 14 Ondansetron HCl 4 mg 09/10/24 01:25 Ondansetron Inj 2 Mg/Ml Inj 2 Ml IV 10/10/24 01:24 Q6HR PRN NAUSEA OR VOMITING Pantoprazole Sodium 40 mg 09/11/24 09:15 09/11/24 09:18 Pantoprazole Inj 40 Mg Vial IV 10/11/24 09:14 40 mg BID BRANDON Administration Plan Summary: The patient is a 59-year-old male with past medical history of hypertension, diabetes, gastric bypass, DVT on Eliquis, PUD and GI bleed, seizures and chronic back pain who was Biba from home with altered mental status to the ED on 09/09/2024. Admitted for acute encephalopathy, requiring dialysis for acute renal failure. Neuro #Acute metabolic encephalopathy #Uremia #Likely accidental overdose Patient was found to be altered by daughter. On presentation to the ED, GCS was 3, patient had pinpoint pupils, takes oxycodone and hydrocodone at home. Initial CMP significant for elevated BUN at 119 and creatinine of 7.[address] was done was negative. Received another dose of Narcan today, currently GCS of 12/13. 09/11/2024- Today, patient is AAOx3, mentation back at baseline, significantly improved from last 24 hours. He continued to be on the Narcan drip over the night. Plan: -Narcan 0.4 mg as needed for respiratory rate less than 14 -Hemodialysis as scheduled by nephrology #History of seizures Patient has a history of seizures, has not had any episodes in years. On Keppra 500 mg twice daily. Plan: -Will continue Keppra Cardiovascular #Hypotension-resolved #Undifferentiated shock-resolved The patient presented with an initial blood pressure of 5443, but was consistently below 65. He received 3 L of fluids in the ED with blood pressure still soft and was consequently started on Levophed and vasopressin. 09/11/2024-patient off of pressors, MAP greater than 65. Respiratory #Community-acquired pneumonia ruled out Initial chest x-ray to evaluate source of sepsis showed some findings consistent with likely pneumonia. The patient was initially started on ceftriaxone and azithromycin and then switched to Zosyn. Cultures pending, will de-escalate antibiotics to continue on ceftriaxone and azithromycin. 09/11/2024-chest x-ray reviewed again, infiltrates seen seem to be more chronic as they have been present on imaging over the past couple months. Antibiotics discontinued. GI #Transaminitis Mild elevation in ALT and AST on admission, currently downtrending. AST at 112 and ALT 95. Normal T. bili and elevated ALP. Will continue to monitor trend Renal #Acute on chronic renal failure The patient has a history of CKD and is on currently. On admission, CMP showed a BUN of 119 and creatinine of 7.2. Renal ultrasound showed bilateral cortical thinning and parenchymal scarring consistent with CKD. Patient received 4 L of IV fluids Nephrology was consulted for emergent hemodialysis and patient had 1 session of ultrafiltration done. Repeat BUN and creatinine this morning are 85 and 5.2 respectively Per nephrology, will hold dialysis today and have another session likely tomorrow based on progress. 09/11/2024-creatinine at 4.3 today, patient scheduled for another session of hemodialysis today. Plan: -Repeat renal panel 12 hours -Avoid nephrotoxic medications -Renally dose medications #Anion gap metabolic acidosis-resolved Labs today, bicarb at 14.9 with anion gap of 28. Due to delta gap of 1.8 reflective of periodic mild. Lactic acid normal, elevated BUN. Patient had 1 session of hemodialysis. Plan: -Continue to monitor renal panel -For repeat hemodialysis if persistent #Hyperkalemia-resolved The patient came in with a potassium of 7.2, received 5 units of IV insulin initially and then had a session of hemodialysis. Potassium today at 4.7. Will continue to monitor. Hematology #Leukopenia, likely dilutional-resolved #Anemia Initial presentation, the patient had a white blood count of 10.4, at 3.5 today. Likely due to 4 L of fluid received as reflected in other cell counts. Will continue to monitor. 09/11/2024-hemoglobin at 6.9 today, repeated 6.8. No signs of active bleeding. Will transfuse 1 unit of PRBC, will curbside consult GI Dr. Alston as patient did have an EGD done about 5 months ago and was recommended for capsule endoscopy that has not been done. Posttransfusion H&H after. Plan: -Transfuse 1 unit of PRBC -Posttransfusion H&H Endocrinology #History of type II DM The patient has a history of type II DM with last A1c done about 3 months ago of 7.2. Admitting glucose at 207. Plan: -ISS -Keep glucose between 140 and 180 -Continue blood glucose check every 6 hours -Hypoglycemic protocols in place ID -No active infections Health maintenance: Dispo: ICU for refractory hypotension, likely shock---> downgraded to floors Diet: Clear liquid diet DVT: SC heparin Lentz: None Lines: right femoral HD Code: Full Case was discussed with Dr Tolliver PGY-2 and attending physician, Dr Indira Chan MD PGY-1 Disclaimer: This note was dictated by speech recognition. Minor errors in rewinder operator helper may be present due to voice recognition software.
--- NOTE | 2024-09-11 13:04 | ESPR_ITS ---
Documentation for date of: 09/11/24 Subjective Subjective Interval history: Patient seen and assessed at bedside in ICU. Patient's mentation much improved today able answer questions appropriately. Able to move all 4 extremities appropriately. Per family at bedside he is close to baseline. Exam Vital Signs Temp Pulse Resp BP Pulse Ox O2 Del Method 98.2 F 95 10 L 112/67 95 Room Air 09/11/24 12:00 09/11/24 12:00 09/11/24 12:00 09/11/24 12:00 09/11/24 12:00 09/11/24 11:00 Narrative Exam GENERAL: AAOX3, able to follow simple commands and better hold a conversation. NEURO: Able to move all 4 extremities. No acute neurologic deficits noted. Equal strength upper and lower extremities. CARDIO: Regular rate and rhythm, no murmurs, rubs, or gallops. PULM: Chest clear to auscultation bilaterally. GI: Abdomen soft, mild discomfort on palpation. Nondistended, active bowel sounds. SKIN/MSK/EXT: No lower extremity edema noted. Objective Labs 09/12/24 04:35 09/11/24 04:40 Labs: Laboratory Results - last 24 hr 09/10/24 09/10/24 09/10/24 07:51 09:00 23:50 WBC RBC Hgb Hct MCV MCH MCHC RDW Std Deviation Plt Count Neut % (Auto) Lymph % (Auto) Banks % (Auto) Eos % (Auto) Baso % (Auto) Neut # (Auto) Lymph # (Auto) Banks # (Auto) Eos # (Auto) Baso # (Auto) Immature Gran # (Auto) Absolute Nucleated RBC Immature Gran % Nucleated RBC % Sodium Potassium Chloride Carbon Dioxide Anion Gap BUN Creatinine Estim Creat Clear Calc eGFR BUN/Creatinine Ratio Glucose Calculated Osmolality Lactic Acid Calcium Corrected Calcium Phosphorus Magnesium Total Bilirubin AST ALT Alkaline Phosphatase Total Protein Albumin Globulin Albumin/Globulin Ratio Lipase 563 H Hepatitis A IgM Ab Non Reactive Hep Bs Antigen Non Reactive Hep Bs Antibody Reactive (Immune) Hep B Core IgM Ab Non Reactive Hepatitis C Antibody Non Reactive Influenza A (Rapid) Negative Influenza B (Rapid) Negative Blood Type Antibody Screen Crossmatch Blood Bank Wristband ID 09/11/24 09/11/24 04:40 06:20 WBC 5.0 D RBC 2.76 L Hgb 6.9 L* D 6.8 L* Hct 21.3 L* 21.0 L* MCV 77 L MCH 25.0 MCHC 32.4 RDW Std Deviation 57.6 H Plt Count 119 L D Neut % (Auto) 71 Lymph % (Auto) 6 L Banks % (Auto) 21 H Eos % (Auto) 0 Baso % (Auto) 0 Neut # (Auto) 3.5 Lymph # (Auto) 0.3 L Banks # (Auto) 1.0 H Eos # (Auto) 0.0 Baso # (Auto) 0.0 Immature Gran # (Auto) 0.09 H Absolute Nucleated RBC 0.00 Immature Gran % 2 H Nucleated RBC % 0 Sodium 142 Potassium 3.5 D Chloride 103 Carbon Dioxide 20.4 Anion Gap 19 H BUN 85 H Creatinine 4.3 H* D Estim Creat Clear Calc 16.3 L eGFR 15 L BUN/Creatinine Ratio 20 Glucose 199 H Calculated Osmolality 314 H Lactic Acid 1.0 Calcium 7.6 L Corrected Calcium 8.6 Phosphorus 4.6 Magnesium 1.8 Total Bilirubin 0.4 AST 75 H ALT 77 H Alkaline Phosphatase 104 D Total Protein 4.7 L Albumin 2.7 L D Globulin 2.0 L Albumin/Globulin Ratio 1.4 Lipase Hepatitis A IgM Ab Hep Bs Antigen Hep Bs Antibody Hep B Core IgM Ab Hepatitis C Antibody Influenza A (Rapid) Influenza B (Rapid) Blood Type O Positive Antibody Screen NEGATIVE Crossmatch See Detail Blood Bank Wristband ID Yes ABG Interpretation ABG results: 09/09/24 20:24 ABG pH Cancelled ABG pCO2 Cancelled ABG pO2 Cancelled ABG HCO3 Cancelled ABG O2 Saturation Cancelled ABG Base Excess Cancelled VBG pH 7.05 L VBG pCO2 22 L VBG pO2 55 VBG Base Excess -23 L Quality Measures Quality Measures VTE prophylaxis Assessment & Plan Assessment Current Active Medications: Generic Name Dose Route Start Last Admin Trade Name Freq PRN Reason Stop Dose Admin Acetaminophen 650 mg 09/10/24 01:25 Acetaminophen 325 Mg Tablet PO 10/10/24 01:24 Q4HR PRN PAIN SCALE 1-3 (mild Acetaminophen 650 mg 09/10/24 01:25 Acetaminophen Supp 650 Mg Supp ME 10/10/24 01:24 Q4HR PRN PAIN SCALE 1-3 (mild Al Hydrox/Mg Hydrox/Simethicone 30 ml 09/10/24 01:25 Mg Hyd/Al Hyd/Maday (Maalox Reg) Susp 30 Ml Udc PO 10/10/24 01:24 Q4HR PRN Heartburn or Upset Stomach Dextrose 25 ml 09/10/24 04:04 Dextrose 50%-Water Inj 50 Ml Syringe IV 10/10/24 04:03 Q15MIN PRN BG 50-70 responsive npo pt Dextrose 50 ml 09/10/24 04:04 Dextrose 50%-Water Inj 50 Ml Syringe IV 10/10/24 04:03 Q15MIN PRN BG <50 OR BG <70 & pt unresponsive Heparin Sodium (Porcine) 2,600 unit 09/10/24 05:31 09/10/24 06:16 Heparin Sod Inj 1000 Unit/Ml Vial 10 Ml INDWELLCAT 09/24/24 05:30 2,600 unit X1 PRN Administration DIALYSIS Albumin Human 25 gm in 100 mls @ 100 mls/min 09/10/24 05:33 Albuminar-25 Ivpb IV PRN PRN DIALYSIS Insulin Human Lispro 0 unit 09/10/24 06:00 09/11/24 12:08 Insulin Lispro (Admelog) 1 Unit/0.01 Ml Unit SC 10/10/24 05:59 3 unit Q6HR BRANDON Administration Protocol Levetiracetam 500 mg 09/10/24 09:00 09/11/24 09:10 Levetiracetam Inj 100 Mg/Ml Vial 5ml IVP 10/10/24 08:59 500 mg Q12HR BRANDON Administration Magnesium Hydroxide 30 ml 09/10/24 01:25 Milk Of Magnesia Susp 30 Ml Udc PO 10/10/24 01:24 QDAY PRN CONSTIPATION Naloxone HCl 0.4 mg 09/11/24 09:11 Naloxone Inj 1 Mg/Ml Syringe 2 Ml IV X1 PRN for respiration less than 14 Ondansetron HCl 4 mg 09/10/24 01:25 Ondansetron Inj 2 Mg/Ml Inj 2 Ml IV 10/10/24 01:24 Q6HR PRN NAUSEA OR VOMITING Pantoprazole Sodium 40 mg 09/11/24 09:15 09/11/24 09:18 Pantoprazole Inj 40 Mg Vial IV 10/11/24 09:14 40 mg BID BRANDON Administration Plan #Acute encephalopathy?improving #History of seizures Multifactorial: Metabolic/toxic/infectious Mentation much improved today. Able to hold conversation and not as lethargic. Positive for opiates on UA Calcium improved Patient to continue with dialysis. Continue with home dose Keppra #Sepsis #Shock #Diabetes #Hyperkalemia #Pneumonia #Acute renal failure Continue management per primary team Case discussed with attending Dr Mike Peña MD PGY3 Attending Provider Attestation/Addendum I personally have seen and examined the patient at the bedside and agreed with resident's findings, assessment and plan of care. His mental status is improving significantly and is close to baseline. Recommend physical therapy evaluation for ambulation safety.
--- NOTE | 2024-09-11 14:01 | PC.NURSE ---
I UNIT OF PRBC'S TRANSFUSING PER MD ORDER, WILL MONITOR
--- NOTE | 2024-09-11 14:25 | PD.RESPRO ---
Documentation for date of: 09/11/24 Subjective Subjective Interval history: Patient was examined at bedside. Daughter was also present at bedside who was updated on plan of care. Today he is doing better, less lethargic, answering questions. AOx3. Patient has had ~ urine output of 2.5L in past 24 hrs. Labs reviwed. Sodium 142, potassium 3.5. AGMA resolving with AG 19 and bicarb 20 today. Completed bicarb drip yesterday. Plan for HD session today and removal of fem cath after to eliminate any possible source of infection. Will continue to monitor. Exam Vital Signs Temp Pulse Resp BP Pulse Ox O2 Del Method 97.9 F 102 H 12 93/75 96 Room Air 09/11/24 14:05 09/11/24 14:15 09/11/24 14:05 09/11/24 14:15 09/11/24 14:05 09/11/24 11:00 Narrative Exam GENERAL: AAOX3, back to baseline NEURO: Able to move all 4 extremities, pupils reactive bilaterally. GRINDER SET UP OPERATOR GEAR TOOL grossly intact HEENT: Dry mucosa. Eyes open, symmetrical, & clear, pupils equal CARDIO: Heart RRR, no obvious murmurs PULM: No dyspnea, Lungs CTAB/L GI: Abdomen soft, nondistended, grimacing to superficial palpation . BSx4 URO/VENEER TAPING MACHINE OPERATOR: No further abnormalities noted. Lentz catheter in place SKIN/MSK/EXT: Bilateral lower extremities rigid and tight, bruising at the knee and on shins Objective Labs 09/12/24 04:35 09/12/24 04:35 Labs: Laboratory Results - last 24 hr 09/10/24 09/11/24 09/11/24 23:50 04:40 06:20 WBC 5.0 D RBC 2.76 L Hgb 6.9 L* D 6.8 L* Hct 21.3 L* 21.0 L* MCV 77 L MCH 25.0 MCHC 32.4 RDW Std Deviation 57.6 H Plt Count 119 L D Neut % (Auto) 71 Lymph % (Auto) 6 L [place] % (Auto) 21 H Eos % (Auto) 0 Baso % (Auto) 0 Neut # (Auto) 3.5 Lymph # (Auto) 0.3 L [place] # (Auto) 1.0 H Eos # (Auto) 0.0 Baso # (Auto) 0.0 Immature Gran # (Auto) 0.09 H Absolute Nucleated RBC 0.00 Immature Gran % 2 H Nucleated RBC % 0 Sodium 142 Potassium 3.5 D Chloride 103 Carbon Dioxide 20.4 Anion Gap 19 H BUN 85 H Creatinine 4.3 H* D Estim Creat Clear Calc 16.3 L eGFR 15 L BUN/Creatinine Ratio 20 Glucose 199 H Calculated Osmolality 314 H Lactic Acid 1.0 Calcium 7.6 L Corrected Calcium 8.6 Phosphorus 4.6 Magnesium 1.8 Total Bilirubin 0.4 AST 75 H ALT 77 H Alkaline Phosphatase 104 D Total Protein 4.7 L Albumin 2.7 L D Globulin 2.0 L Albumin/Globulin Ratio 1.4 Influenza A (Rapid) Negative Influenza B (Rapid) Negative Blood Type O Positive Antibody Screen NEGATIVE Crossmatch See Detail Blood Bank Wristband ID Yes ABG Interpretation ABG results: 09/09/24 20:24 ABG pH Cancelled ABG pCO2 Cancelled ABG pO2 Cancelled ABG HCO3 Cancelled ABG O2 Saturation Cancelled ABG Base Excess Cancelled VBG pH 7.05 L VBG pCO2 22 L VBG pO2 55 VBG Base Excess -23 L Quality Measures Quality Measures VTE prophylaxis Assessment & Plan Assessment Current Active Medications: Generic Name Dose Route Start Last Admin Trade Name Freq PRN Reason Stop Dose Admin Acetaminophen 650 mg 09/10/24 01:25 Acetaminophen 325 Mg Tablet PO 10/10/24 01:24 Q4HR PRN PAIN SCALE 1-3 (mild Acetaminophen 650 mg 09/10/24 01:25 Acetaminophen Supp 650 Mg Supp [place] 10/10/24 01:24 Q4HR PRN PAIN SCALE 1-3 (mild Al Hydrox/Mg Hydrox/Simethicone 30 ml 09/10/24 01:25 Mg Hyd/Al Hyd/Maday (Maalox Reg) Susp 30 Ml Udc PO 10/10/24 01:24 Q4HR PRN Heartburn or Upset Stomach Dextrose 25 ml 09/10/24 04:04 Dextrose 50%-Water Inj 50 Ml Syringe IV 10/10/24 04:03 Q15MIN PRN BG 50-70 responsive npo pt Dextrose 50 ml 09/10/24 04:04 Dextrose 50%-Water Inj 50 Ml Syringe IV 10/10/24 04:03 Q15MIN PRN BG <50 OR BG <70 & pt unresponsive Heparin Sodium (Porcine) 2,600 unit 09/10/24 05:31 09/10/24 06:16 Heparin Sod Inj 1000 Unit/Ml Vial 10 Ml INDWELLCAT 09/24/24 05:30 2,600 unit X1 PRN Administration DIALYSIS Albumin Human 25 gm in 100 mls @ 100 mls/min 09/10/24 05:33 Albuminar-25 Ivpb IV PRN PRN DIALYSIS Insulin Human Lispro 0 unit 09/10/24 06:00 09/11/24 12:08 Insulin Lispro (Admelog) 1 Unit/0.01 Ml Unit SC 10/10/24 05:59 3 unit Q6HR BRANDON Administration Protocol Levetiracetam 500 mg 09/10/24 09:00 09/11/24 09:10 Levetiracetam Inj 100 Mg/Ml Vial 5ml IVP 10/10/24 08:59 500 mg Q12HR BRANDON Administration Magnesium Hydroxide 30 ml 09/10/24 01:25 Milk Of Magnesia Susp 30 Ml Udc PO 10/10/24 01:24 QDAY PRN CONSTIPATION Naloxone HCl 0.4 mg 09/11/24 09:11 Naloxone Inj 1 Mg/Ml Syringe 2 Ml IV X1 PRN for respiration less than 14 Ondansetron HCl 4 mg 09/10/24 01:25 Ondansetron Inj 2 Mg/Ml Inj 2 Ml IV 10/10/24 01:24 Q6HR PRN NAUSEA OR VOMITING Pantoprazole Sodium 40 mg 09/11/24 09:15 09/11/24 09:18 Pantoprazole Inj 40 Mg Vial IV 10/11/24 09:14 40 mg BID BRANDON Administration Plan Ric aWyne is 59 yr male with PMH of PE/DVT on Eliquis, Hx of PUD with GI bleed requiring transfusions, IDDM I, Katherine-en-Y gastric bypass (2007), and hx of seizures on Keppra BIBA from home due to altered mentation from baseline. He has had poor oral intake for serveral days. Nephrology was consulted for LEON and hyperkalemia with acidosis. He underwent emergent dialysis shortly after admission. #Acute on chronic renal failure #AGMA-improving Most likely due to decrease intake and unknown time of hypotension since past few days. Refractory hypotension causing hypoperfusion leading to possible ATN. On admission, CMP showed a BUN of 119 and creatinine of 7.2. Renal ultrasound showed bilateral cortical thinning and parenchymal scarring consistent with CKD. Patient received 4 L of IV fluids Nephrology was consulted for emergent hemodialysis and patient had 1 session of ultrafiltration done. AGMA resolving with AG 19 and bicarb 20 today. Completed bicarb drip yesterday. -next planned HD session today 09/11 via fem cath -Repeat renal panel 12 hours -Avoid nephrotoxic medications -Renally dose medications - C3, C4, ANCA, and anti-GBM pending #Acute metabolic encephalopathy-resolved #Hyperkalemia-resolved #Likely accidental overdose #History of seizures #Community-acquired pneumonia #Leukopenia, likely dilutional #Anemia #Transaminitis #History of type II DM The patient's management plan was discussed with my attending physician Dr. Liang. Talya Mcdonald, PGY-1 Attending Provider Attestation/Addendum Pt seen and examined. Labs and radiology reviewed. Agree with assessment and plan and findings by resident. Theo Liang MD
--- NOTE | 2024-09-11 15:15 | ESPR_ITS ---
<Statement entered by Raven Mckeon MD - 09/11/24 16:01> 59-year-old male with past medical history of hypertension, diabetes, gastric bypass, DVT on Eliquis, PUD and GI bleed, seizures and chronic back pain who was brought to the ED due to altered mental status on 09/09/2024 and admitted for acute encephalopathy, requiring dialysis for acute renal failure. Per Dr. Liang, patient will receive last session of dialysis today. Patient also presented with a low a Hgb of 6.8, and transfused 1upRBC. Will resume patient's other home medications. Will control patient's pain medications and anticipate discharge within 24-48 hours. I discussed with and supervised the international travel consultant physician who took care of this patient. I personally saw and examined the patient and discussed the assessment and plan with the entire medicine team, including my attending , I agree with most of the assessment and plan as documented below Raven Mckeon M.D. PGY-2 <Statement entered by Luz Eller MD - 09/11/24 15:49> I discussed with and supervised the international travel consultant physician who took care of this patient. I personally saw and examined the patient and discussed the assessment and plan with the entire medicine team, including my attending Dr. Godoy, I agree with the assessment and plan as documented below Patient seen and examined at bedside today. Labs and imaging reviewed. Luz Eller MD PGY-3 Disclaimer: Despite multiple revisions, due to the dictation software being used, the document bellow may not be free of grammatical errors including phonetic/typographic errors. However, this does not deter from our commitment to providing health care in the patient's best interest in mind. Documentation for date of: 09/11/24 Subjective Subjective Interval history: Downgraded from ICU today. In summary this is a 59-year-old male with history of PE/DVT on Eliquis, history of peptic ulcer disease with GI bleed, diabetes, history of Katherine-en-Y, history of seizures on Keppra who came here due to altered mentation. Of note patient is on chronic opioid therapy likely possible cause of altered mentation, requiring narcan. Also with acute renal failure, requiring dialysis due to hyperkalemia and acidosis. Patient seen today in the ICU receiving hemodialysis, found awake, alert. Gi was consulted as patient is Hg dropped below 7. Exam Vital Signs Temp Pulse Resp BP Pulse Ox O2 Del Method 97.9 F 96 8 L 98/68 95 Room Air 09/11/24 14:05 09/11/24 15:00 09/11/24 15:00 09/11/24 15:00 09/11/24 15:00 09/11/24 11:00 Narrative Exam Physical Exam GENERAL: NAD, AAOx3 HEENT: Moist mucosa. Eyes open, symmetrical, & clear CARDIO: Heart RRR, no obvious murmurs PULM: No noted coughing/dyspnea CTA B/L, no R/W/R GI: Abdomen soft, nondistended, no pain on palpation. BSx4 SKIN/MSK/EXT: Bilateral lower extremities rigid and tight, bruising at the knee and on shins NEURO: AAOx3, no focal neuro deficits, able to move all 4 extremities Objective Labs 09/11/24 15:32 09/11/24 04:40 Labs: Laboratory Results - last 24 hr 09/10/24 09/11/24 09/11/24 23:50 04:40 06:20 WBC 5.0 D RBC 2.76 L Hgb 6.9 L* D 6.8 L* Hct 21.3 L* 21.0 L* MCV 77 L MCH 25.0 MCHC 32.4 RDW Std Deviation 57.6 H Plt Count 119 L D Neut % (Auto) 71 Lymph % (Auto) 6 L [place] % (Auto) 21 H Eos % (Auto) 0 Baso % (Auto) 0 Neut # (Auto) 3.5 Lymph # (Auto) 0.3 L [place] # (Auto) 1.0 H Eos # (Auto) 0.0 Baso # (Auto) 0.0 Immature Gran # (Auto) 0.09 H Absolute Nucleated RBC 0.00 Immature Gran % 2 H Nucleated RBC % 0 Sodium 142 Potassium 3.5 D Chloride 103 Carbon Dioxide 20.4 Anion Gap 19 H BUN 85 H Creatinine 4.3 H* D Estim Creat Clear Calc 16.3 L eGFR 15 L BUN/Creatinine Ratio 20 Glucose 199 H Calculated Osmolality 314 H Lactic Acid 1.0 Calcium 7.6 L Corrected Calcium 8.6 Phosphorus 4.6 Magnesium 1.8 Total Bilirubin 0.4 AST 75 H ALT 77 H Alkaline Phosphatase 104 D Total Protein 4.7 L Albumin 2.7 L D Globulin 2.0 L Albumin/Globulin Ratio 1.4 Influenza A (Rapid) Negative Influenza B (Rapid) Negative Blood Type O Positive Antibody Screen NEGATIVE Crossmatch See Detail Blood Bank Wristband ID Yes ABG Interpretation ABG results: 09/09/24 20:24 ABG pH Cancelled ABG pCO2 Cancelled ABG pO2 Cancelled ABG HCO3 Cancelled ABG O2 Saturation Cancelled ABG Base Excess Cancelled VBG pH 7.05 L VBG pCO2 22 L VBG pO2 55 VBG Base Excess -23 L Quality Measures Quality Measures VTE prophylaxis Assessment & Plan Assessment Current Active Medications: Generic Name Dose Route Start Last Admin Trade Name Freq PRN Reason Stop Dose Admin Acetaminophen 650 mg 09/10/24 01:25 Acetaminophen 325 Mg Tablet PO 10/10/24 01:24 Q4HR PRN PAIN SCALE 1-3 (mild Acetaminophen 650 mg 09/10/24 01:25 Acetaminophen Supp 650 Mg Supp [place] 10/10/24 01:24 Q4HR PRN PAIN SCALE 1-3 (mild Al Hydrox/Mg Hydrox/Simethicone 30 ml 09/10/24 01:25 Mg Hyd/Al Hyd/Maday (Maalox Reg) Susp 30 Ml Udc PO 10/10/24 01:24 Q4HR PRN Heartburn or Upset Stomach Dextrose 25 ml 09/10/24 04:04 Dextrose 50%-Water Inj 50 Ml Syringe IV 10/10/24 04:03 Q15MIN PRN BG 50-70 responsive npo pt Dextrose 50 ml 09/10/24 04:04 Dextrose 50%-Water Inj 50 Ml Syringe IV 10/10/24 04:03 Q15MIN PRN BG <50 OR BG <70 & pt unresponsive Heparin Sodium (Porcine) 2,600 unit 09/10/24 05:31 09/10/24 06:16 Heparin Sod Inj 1000 Unit/Ml Vial 10 Ml INDWELLCAT 09/24/24 05:30 2,600 unit X1 PRN Administration DIALYSIS Albumin Human 25 gm in 100 mls @ 100 mls/min 09/10/24 05:33 Albuminar-25 Ivpb IV PRN PRN DIALYSIS Insulin Human Lispro 0 unit 09/10/24 06:00 09/11/24 12:08 Insulin Lispro (Admelog) 1 Unit/0.01 Ml Unit SC 10/10/24 05:59 3 unit Q6HR BRANDON Administration Protocol Levetiracetam 500 mg 09/10/24 09:00 09/11/24 09:10 Levetiracetam Inj 100 Mg/Ml Vial 5ml IVP 10/10/24 08:59 500 mg Q12HR BRANDON Administration Magnesium Hydroxide 30 ml 09/10/24 01:25 Milk Of Magnesia Susp 30 Ml Udc PO 10/10/24 01:24 QDAY PRN CONSTIPATION Naloxone HCl 0.4 mg 09/11/24 09:11 Naloxone Inj 1 Mg/Ml Syringe 2 Ml IV X1 PRN for respiration less than 14 Ondansetron HCl 4 mg 09/10/24 01:25 Ondansetron Inj 2 Mg/Ml Inj 2 Ml IV 10/10/24 01:24 Q6HR PRN NAUSEA OR VOMITING Pantoprazole Sodium 40 mg 09/11/24 09:15 09/11/24 09:18 Pantoprazole Inj 40 Mg Vial IV 10/11/24 09:14 40 mg BID BRANDON Administration Plan 59-year-old male with past medical history of hypertension, diabetes, gastric bypass, DVT on Eliquis, PUD and GI bleed, seizures and chronic back pain who was brought to the ED due to altered mental status on 09/09/2024. Admitted for acute encephalopathy, requiring dialysis for acute renal failure. #Acute on chronic renal failure The patient has a history of CKD and is on currently. On admission, CMP showed a BUN of 119 and creatinine of 7.2. Renal ultrasound showed bilateral cortical thinning and parenchymal scarring consistent with CKD. Patient received 4 L of IV fluids Nephrology, Dr. Liang was consulted for emergent hemodialysis and patient had 1 session of ultrafiltration done. ?Currently on hemodialysis -Repeat renal panel 12 hours -Avoid nephrotoxic medications -Renally dose medications #Acute metabolic encephalopathy?resolved #Uremia?improving #Likely accidental overdose Patient was found to be altered by daughter. On presentation to the ED, GCS was 3, patient had pinpoint pupils, takes oxycodone and hydrocodone at home. Initial CMP significant for elevated BUN at 119 and creatinine of 7.[address] was done was negative. Required multiple doses of Narcan -Narcan 0.4 mg as needed for respiratory rate less than 14 -Hemodialysis as scheduled by nephrology #History of seizures Patient has a history of seizures, has not had any episodes in years. On Keppra 500 mg twice daily. -Will continue Keppra #Community-acquired pneumonia-ruled out Initial chest x-ray to evaluate source of sepsis showed some findings consistent with likely pneumonia. The patient was initially started on ceftriaxone and azithromycin and then switched to Zosyn. Cultures pending, will de-escalate antibiotics to continue on ceftriaxone and azithromycin. 09/11/2024-chest x-ray reviewed again, infiltrates seen seem to be more chronic as they have been present on imaging over the past couple months. Antibiotics discontinued. #Transaminitis Mild elevation in ALT and AST on admission, currently downtrending. AST at 112 and ALT 95. Normal T. bili and elevated ALP. ?Will continue to monitor trend #Microcytic anemia hemoglobin at 6.9 today, repeated 6.8. MCV 77 no signs of active bleeding. Will transfuse 1 unit of PRBC, will curbside consult GI Dr. Alston as patient did have an EGD done about 5 months ago and was recommended for capsule endoscopy that has not been done. ?GI consulted, appreciate recommendations -Transfuse 1 unit of PRBC -Follow-up post-transfusion H&H #History of type II DM The patient has a history of type II DM with last A1c done about 3 months ago of 7.2. Admitting glucose at 207. ?SSI ? Hypoglycemia protocol in place #Hypotension-resolved #Undifferentiated shock-resolved #Anion gap metabolic acidosis-resolved #Hyperkalemia-resolved #Leukopenia, likely dilutional-resolved Case discussed with my senior Dr. Mckeon PGY-2, Dr. Eller PGY-[address] Jayne Reddy MD PGY-1 Disposition: ICU downgraded to floors Fluids: None Feeding: Clear liquid Thrombo prophylaxis: Heparin Gastric Ulcer prophylaxis: Pantoprazole CODE STATUS: Full code Attending Provider Attestation/Addendum I have examined the patient, reviewed labs and imaging findings, discussed the case with the resident(s), and reviewed entered orders. I agree with the plan of care as outlined in this note. Dr. Jayne MD
[2024-09-11] MEDS: HEPARIN SOD INJ 1000 UNIT/ML VIAL 10 ML 2600 UNIT INDWELLCAT (16:02)
[2024-09-11 16:09] LABS: Hemoglobin 8.8 g/dL (13.5-16.0)
--- NOTE | 2024-09-11 16:10 | PC.SS ---
Rounding Note: Patient has been downgraded from ICU. Patient received dialysis today.
[2024-09-12] VITALS (8 sets, daily range): BP systolic 134–147; BP diastolic 83–100; PULSE 77–100; RESP 12–96; TEMP 36.1–36.6; O2SAT 93–96; BMI 20.9
[2024-09-12 05:44] LABS: Basophils # (Auto) 0.1 Thou/mm3 (0.0-0.2); Basophils % (Auto) 1 % (0-2.5); Eosinophils # (Auto) 0.1 Thou/mm3 (0.0-0.5); Eosinophils % (Auto) 1 % (0-10); Hematocrit 30.8 % (41.0-53.0); Hemoglobin 9.7 g/dL (13.5-16.0); Immature Granulocytes % (Auto) 0 % (0-0); Immature Granulocytes Auto 0.03 Thou/mm3 (0.00-0.00); Lymphocytes # (Auto) 0.8 Thou/mm3 (1.0-4.8); Lymphocytes % (Auto) 10 % (10-50); Mean Corpuscular HGB Conc 31.5 g/dl (31.0-37.0); Mean Corpuscular Hemoglobin 25.3 pg (25.0-35.0); Mean Corpuscular Volume 80 fL (80-100); Monocytes # (Auto) 1.2 Thou/mm3 (0.0-0.8); Monocytes % (Auto) 15 % (0-12); Neutrophils # (Auto) 5.8 Thou/mm3 (1.8-7.7); Neutrophils % (Auto) 72 % (37-80); Nucleated Red Blood Cell % 0 /100 WBC (0); Platelet Count 113 Thou/mm3 (140-440); RDW Standard Deviation 59.4 fL (35.1-43.9); Red Blood Count 3.83 Miln/mm3 (4.50-5.90); White Blood Count 8.1 Thou/mm3 (3.8-10.6)
[2024-09-12] MEDS: INSULIN LISPRO (AdmeLOG) 1 UNIT/0.01 ML UNIT SC ×2 (05:58→17:27)
[2024-09-12 06:31] LABS: Alanine Aminotransferase 77 U/L (10-49); Albumin, Serum 3.2 gm/dL (3.4-4.8); Albumin/Globulin Ratio 1.3 (1.2-2.2); Alkaline Phosphatase 117 U/L (46-116); Anion Gap 13 (7-16); Aspartate Amino Transferase 65 U/L (0-34); BUN/Creatinine Ratio 19 Ratio (12-20); Bilirubin,Total 0.4 mg/dL (0.3-1.2); Blood Urea Nitrogen 41 mg/dL (9-23); Calcium 8.8 mg/dL (8.3-10.6); Calcium (Corrected) 9.4 mg/dL (8.5-10.1); Carbon Dioxide 25.9 mMol/L (20.0-31.0); Chloride 104 mMol/L (98-107); Creatinine (Component) 2.2 mg/dL (0.6-1.3); Estimated Creatinine Clearance 32.3 mL/min (>60); Globulin 2.4 gm/dL (2.3-3.5); Glucose 156 mg/dL (74-106); Magnesium 1.8 mg/dL (1.6-2.6); Osmolality,Calculated 298 (275-295); Potassium 4.8 mMol/L (3.4-5.1); Sodium 143 mMol/L (136-145); Total Protein 5.6 gm/dL (5.7-8.2); eGFR 33 See Note
[2024-09-12] MEDS: PANTOPRAZOLE INJ 40 MG VIAL IV ×2 (08:13→21:19)
[2024-09-12] MEDS: levETIRAcetam INJ 100 MG/ML VIAL 5ML 500 MG IVP ×2 (08:14→21:14)
[2024-09-12] MEDS: ACETAMINOPHEN 325 MG TABLET 650 MG PO (08:22)
[2024-09-12] MEDS: LIDOCAINE 5% 1 PATCH TOP (11:45)
--- NOTE | 2024-09-12 14:35 | ESPR_ITS ---
Documentation for date of: 09/12/24 Subjective Subjective Interval history: Patient examined at bedside. No major events. Appears to be back at baseline. Urine output in past 24 hrs ~1.3L. He had HD session yesterday. Labs show sodium 143 and improvement in hyperkalemia. Potassium 4.8. Not anticipating patient will need another dialysis at this time. Therefore okay to remove fem cath. Cr downtrended to 2.2 today, GFR 33--LEON is improving. Continue LR maintainence at 55cc/hr. Exam Vital Signs Temp Pulse Resp BP Pulse Ox O2 Del Method 96.9 F 77 14 139/91 H 96 Room Air 09/12/24 12:00 09/12/24 12:29 09/12/24 12:29 09/12/24 12:00 09/12/24 12:00 09/12/24 12:00 Objective Labs 09/12/24 04:35 09/12/24 04:35 Labs: Laboratory Results - last 24 hr 09/11/24 09/12/24 15:32 04:35 WBC 8.1 D RBC 3.83 L Hgb 8.8 L D 9.7 L Hct 27.0 L 30.8 L MCV 80 MCH 25.3 MCHC 31.5 RDW Std Deviation 59.4 H Plt Count 113 L Neut % (Auto) 72 Lymph % (Auto) 10 [place] % (Auto) 15 H Eos % (Auto) 1 Baso % (Auto) 1 Neut # (Auto) 5.8 Lymph # (Auto) 0.8 L [place] # (Auto) 1.2 H Eos # (Auto) 0.1 Baso # (Auto) 0.1 Immature Gran # (Auto) 0.03 H Absolute Nucleated RBC 0.00 Immature Gran % 0 Nucleated RBC % 0 Sodium 143 Potassium 4.8 D Chloride 104 Carbon Dioxide 25.9 Anion Gap 13 BUN 41 H Creatinine 2.2 H D Estim Creat Clear Calc 32.3 L eGFR 33 L BUN/Creatinine Ratio 19 Glucose 156 H Calculated Osmolality 298 H Calcium 8.8 Corrected Calcium 9.4 Phosphorus 3.0 Magnesium 1.8 Total Bilirubin 0.4 AST 65 H ALT 77 H Alkaline Phosphatase 117 H Total Protein 5.6 L Albumin 3.2 L D Globulin 2.4 Albumin/Globulin Ratio 1.3 ABG Interpretation ABG results: 09/09/24 20:24 ABG pH Cancelled ABG pCO2 Cancelled ABG pO2 Cancelled ABG HCO3 Cancelled ABG O2 Saturation Cancelled ABG Base Excess Cancelled VBG pH 7.05 L VBG pCO2 22 L VBG pO2 55 VBG Base Excess -23 L Quality Measures Quality Measures VTE prophylaxis Assessment & Plan Assessment Current Active Medications: Generic Name Dose Route Start Last Admin Trade Name Rae PRN Reason Stop Dose Admin Acetaminophen 650 mg 09/10/24 01:25 09/12/24 08:22 Acetaminophen 325 Mg Tablet PO 10/10/24 01:24 650 mg Q4HR PRN Administration PAIN SCALE 1-3 (mild Acetaminophen 650 mg 09/10/24 01:25 Acetaminophen Supp 650 Mg Supp [place] 10/10/24 01:24 Q4HR PRN PAIN SCALE 1-3 (mild Al Hydrox/Mg Hydrox/Simethicone 30 ml 09/10/24 01:25 Mg Hyd/Al Hyd/Maday (Maalox Reg) Susp 30 Ml Udc PO 10/10/24 01:24 Q4HR PRN Heartburn or Upset Stomach Dextrose 25 ml 09/10/24 04:04 Dextrose 50%-Water Inj 50 Ml Syringe IV 10/10/24 04:03 Q15MIN PRN BG 50-70 responsive npo pt Dextrose 50 ml 09/10/24 04:04 Dextrose 50%-Water Inj 50 Ml Syringe IV 10/10/24 04:03 Q15MIN PRN BG <50 OR BG <70 & pt unresponsive Heparin Sodium (Porcine) 2,600 unit 09/10/24 05:31 09/11/24 16:02 Heparin Sod Inj 1000 Unit/Ml Vial 10 Ml INDWELLCAT 09/24/24 05:30 2,600 unit X1 PRN Administration DIALYSIS Albumin Human 25 gm in 100 mls @ 100 mls/min 09/10/24 05:33 Albuminar-25 Ivpb IV PRN PRN DIALYSIS Insulin Human Lispro 0 unit 09/10/24 06:00 09/12/24 12:51 Insulin Lispro (Admelog) 1 Unit/0.01 Ml Unit SC 10/10/24 05:59 Not Given Q6HR [facility] Protocol Levetiracetam 500 mg 09/10/24 09:00 09/12/24 08:14 Levetiracetam Inj 100 Mg/Ml Vial 5ml IVP 10/10/24 08:59 500 mg Q12HR BRANDON Administration Magnesium Hydroxide 30 ml 09/10/24 01:25 Milk Of Magnesia Susp 30 Ml Udc PO 10/10/24 01:24 QDAY PRN CONSTIPATION Naloxone HCl 0.4 mg 09/11/24 09:11 Naloxone Inj 1 Mg/Ml Syringe 2 Ml IV X1 PRN for respiration less than 14 Ondansetron HCl 4 mg 09/10/24 01:25 Ondansetron Inj 2 Mg/Ml Inj 2 Ml IV 10/10/24 01:24 Q6HR PRN NAUSEA OR VOMITING Pantoprazole Sodium 40 mg 09/11/24 09:15 09/12/24 08:13 Pantoprazole Inj 40 Mg Vial IV 10/11/24 09:14 40 mg BID BRANDON Administration Plan Ric Wayne is 59 yr male with PMH of PE/DVT on Eliquis, Hx of PUD with GI bleed requiring transfusions, IDDM I, Katherine-en-Y gastric bypass (2007), and hx of seizures on Keppra BIBA from home due to altered mentation from baseline. He has had poor oral intake for serveral days. Nephrology was consulted for LEON and hyperkalemia with acidosis. He underwent emergent dialysis shortly after admission. #Acute on chronic renal failure Most likely due to decrease intake and unknown time of hypotension since past few days. Refractory hypotension causing hypoperfusion leading to possible ATN. On admission, CMP showed a BUN of 119 and creatinine of 7.2. Renal ultrasound showed bilateral cortical thinning and parenchymal scarring consistent with CKD. Patient received 4 L of IV fluids Nephrology was consulted for emergent hemodialysis and patient had 1 session of ultrafiltration done. AGMA resolving with AG 19 and bicarb 20 today. Completed bicarb drip 09/10.. -has completed total of 2 HD sessions since admission -plan to remove fem cath per primary team -no additional dialysis session at this time -start LR 55cc/hr -Repeat renal panel 12 hours -Avoid nephrotoxic medications -Renally dose medications - C3, C4, ANCA, and anti-GBM pending #AGMA-resolved #Acute metabolic encephalopathy-resolved #Hyperkalemia-resolved #Likely accidental overdose #History of seizures #Community-acquired pneumonia #Leukopenia, likely dilutional #Anemia #Transaminitis #History of type II DM The patient's management plan was discussed with my attending physician Dr. Liang. Talya Mcdonald, PGY-1 Attending Provider Attestation/Addendum Pt seen and examined. Labs and radiology reviewed. Agree with assessment and plan and findings by resident. Theo Liagn MD
--- NOTE | 2024-09-12 15:21 | ESPR_ITS ---
<Statement entered by Rich Guerra MD - 09/14/24 17:11> I have discussed and was present for the essential components of the history, physical examination, diagnosis, and treatment plan with the resident. I agree with the patient's care as documented by the resident and amended herein by me. Rich Guerra MD FACP. Documentation for date of: 09/12/24 Subjective Subjective Interval history: Patient seen today at the bedside fine awake, alert, into x 3. No overnight events reported. Vital signs stable at this time. Labs stable at this time. Patient started on LR at 75 cc/h, will remove hemodialysis catheter after speaking with nephrology. Exam Vital Signs Temp Pulse Resp BP Pulse Ox O2 Del Method 96.9 F 77 14 139/91 H 96 Room Air 09/12/24 12:00 09/12/24 12:29 09/12/24 12:09/12/24 12:00 09/12/24 12:09/12/24 12:00 Narrative Exam Physical Exam GENERAL: NAD, AAOx3 HEENT: Moist mucosa. Eyes open, symmetrical, & clear CARDIO: Heart RRR, no obvious murmurs PULM: No noted coughing/dyspnea CTA B/L, no R/W/R GI: Abdomen soft, nondistended, no pain on palpation. BSx4 SKIN/MSK/EXT: Bilateral lower extremities rigid and tight, bruising at the knee and on shins NEURO: AAOx3, no focal neuro deficits, able to move all 4 extremities Objective Labs 09/13/24 05:18 09/13/24 05:18 Labs: Laboratory Results - last 24 hr 09/11/24 09/12/24 15:32 04:35 WBC 8.1 D RBC 3.83 L Hgb 8.8 L D 9.7 L Hct 27.0 L 30.8 L MCV 80 MCH 25.3 MCHC 31.5 RDW Std Deviation 59.4 H Plt Count 113 L Neut % (Auto) 72 Lymph % (Auto) 10 [place] % (Auto) 15 H Eos % (Auto) 1 Baso % (Auto) 1 Neut # (Auto) 5.8 Lymph # (Auto) 0.8 L [place] # (Auto) 1.2 H Eos # (Auto) 0.1 Baso # (Auto) 0.1 Immature Gran # (Auto) 0.03 H Absolute Nucleated RBC 0.00 Immature Gran % 0 Nucleated RBC % 0 Sodium 143 Potassium 4.8 D Chloride 104 Carbon Dioxide 25.9 Anion Gap 13 BUN 41 H Creatinine 2.2 H D Estim Creat Clear Calc 32.3 L eGFR 33 L BUN/Creatinine Ratio 19 Glucose 156 H Calculated Osmolality 298 H Calcium 8.8 Corrected Calcium 9.4 Phosphorus 3.0 Magnesium 1.8 Total Bilirubin 0.4 AST 65 H ALT 77 H Alkaline Phosphatase 117 H Total Protein 5.6 L Albumin 3.2 L D Globulin 2.4 Albumin/Globulin Ratio 1.3 ABG Interpretation ABG results: 09/09/24 20:24 ABG pH Cancelled ABG pCO2 Cancelled ABG pO2 Cancelled ABG HCO3 Cancelled ABG O2 Saturation Cancelled ABG Base Excess Cancelled VBG pH 7.05 L VBG pCO2 22 L VBG pO2 55 VBG Base Excess -23 L Quality Measures Quality Measures VTE prophylaxis Assessment & Plan Assessment Current Active Medications: Generic Name Dose Route Start Last Admin Trade Name Freq PRN Reason Stop Dose Admin Acetaminophen 650 mg 09/10/24 01:25 09/12/24 08:22 Acetaminophen 325 Mg Tablet PO 10/10/24 01:24 650 mg Q4HR PRN Administration PAIN SCALE 1-3 (mild Acetaminophen 650 mg 09/10/24 01:25 Acetaminophen Supp 650 Mg Supp [place] 10/10/24 01:24 Q4HR PRN PAIN SCALE 1-3 (mild Al Hydrox/Mg Hydrox/Simethicone 30 ml 09/10/24 01:25 Mg Hyd/Al Hyd/Maday (Maalox Reg) Susp 30 Ml Udc PO 10/10/24 01:24 Q4HR PRN Heartburn or Upset Stomach Dextrose 25 ml 09/10/24 04:04 Dextrose 50%-Water Inj 50 Ml Syringe IV 10/10/24 04:03 Q15MIN PRN BG 50-70 responsive npo pt Dextrose 50 ml 09/10/24 04:04 Dextrose 50%-Water Inj 50 Ml Syringe IV 10/10/24 04:03 Q15MIN PRN BG <50 OR BG <70 & pt unresponsive Heparin Sodium (Porcine) 2,600 unit 09/10/24 05:31 09/11/24 16:02 Heparin Sod Inj 1000 Unit/Ml Vial 10 Ml INDWELLCAT 09/24/24 05:30 2,600 unit X1 PRN Administration DIALYSIS Albumin Human 25 gm in 100 mls @ 100 mls/min 09/10/24 05:33 Albuminar-25 Ivpb IV PRN PRN DIALYSIS Lactated Ringer's 1,000 mls @ 75 mls/hr 09/12/24 14:45 Lactated Ringers IV 10/12/24 14:44 .[id number] [facility] Insulin Human Lispro 0 unit 09/10/24 06:00 09/12/24 12:51 Insulin Lispro (Admelog) 1 Unit/0.01 Ml Unit SC 10/10/24 05:59 Not Given Q6HR [facility] Protocol Levetiracetam 500 mg 09/10/24 09:00 09/12/24 08:14 Levetiracetam Inj 100 Mg/Ml Vial 5ml IVP 10/10/24 08:59 500 mg Q12HR BRANDON Administration Magnesium Hydroxide 30 ml 09/10/24 01:25 Milk Of Magnesia Susp 30 Ml Udc PO 10/10/24 01:24 QDAY PRN CONSTIPATION Naloxone HCl 0.4 mg 09/11/24 09:11 Naloxone Inj 1 Mg/Ml Syringe 2 Ml IV X1 PRN for respiration less than 14 Ondansetron HCl 4 mg 09/10/24 01:25 Ondansetron Inj 2 Mg/Ml Inj 2 Ml IV 10/10/24 01:24 Q6HR PRN NAUSEA OR VOMITING Pantoprazole Sodium 40 mg 09/11/24 09:15 09/12/24 08:13 Pantoprazole Inj 40 Mg Vial IV 10/11/24 09:14 40 mg BID BRANDON Administration Plan 59-year-old male with past medical history of hypertension, diabetes, gastric bypass, DVT on Eliquis, PUD and GI bleed, seizures and chronic back pain who was brought to the ED due to altered mental status on 09/09/2024. Admitted for acute encephalopathy, requiring dialysis for acute renal failure. #Acute on chronic renal failure The patient has a history of CKD and is on currently. On admission, CMP showed a BUN of 119 and creatinine of 7.2. Renal ultrasound showed bilateral cortical thinning and parenchymal scarring consistent with CKD. Patient received 4 L of IV fluids Nephrology, Dr. Liang was consulted for emergent hemodialysis and patient had 1 session of ultrafiltration done. ? remove HD cath -Avoid nephrotoxic medications -Renally dose medications #Acute metabolic encephalopathy?resolved #Uremia?improving #Likely accidental overdose Patient was found to be altered by daughter. On presentation to the ED, GCS was 3, patient had pinpoint pupils, takes oxycodone and hydrocodone at home. Initial CMP significant for elevated BUN at 119 and creatinine of 7.[address] was done was negative. Required multiple doses of Narcan -Narcan 0.4 mg as needed for respiratory rate less than 14 -Hemodialysis as scheduled by nephrology #History of seizures Patient has a history of seizures, has not had any episodes in years. On Keppra 500 mg twice daily. -Will continue Keppra #Community-acquired pneumonia-ruled out Initial chest x-ray to evaluate source of sepsis showed some findings consistent with likely pneumonia. The patient was initially started on ceftriaxone and azithromycin and then switched to Zosyn. Cultures pending, will de-escalate antibiotics to continue on ceftriaxone and azithromycin. 09/11/2024-chest x-ray reviewed again, infiltrates seen seem to be more chronic as they have been present on imaging over the past couple months. Antibiotics discontinued. #Transaminitis Mild elevation in ALT and AST on admission, currently downtrending. AST at 112 and ALT 95. Normal T. bili and elevated ALP. ?Will continue to monitor trend #Microcytic anemia hemoglobin at 6.9 today, repeated 6.8. MCV 77 no signs of active bleeding. Will transfuse 1 unit of PRBC, will curbside consult GI Dr. Alston as patient did have an EGD done about 5 months ago and was recommended for capsule endoscopy that has not been done. ?GI consulted, appreciate recommendations -Follow-up post-transfusion H&H #History of type II DM The patient has a history of type II DM with last A1c done about 3 months ago of 7.2. Admitting glucose at 207. ?SSI ? Hypoglycemia protocol in place #Hypotension-resolved #Undifferentiated shock-resolved #Anion gap metabolic acidosis-resolved #Hyperkalemia-resolved #Leukopenia, likely dilutional-resolved Case discussed with my senior Dr. Nguyễn PGY-[address] Charlie Reddy MD PGY-1 Disposition: ICU downgraded to floors Fluids: None Feeding: Clear liquid Thrombo prophylaxis: Heparin Gastric Ulcer prophylaxis: Pantoprazole CODE STATUS: Full code Senior Resident Attestation: I discussed with and supervised the music internship physician involved in the care of this patient. I personally saw and examined the patient and discussed the assessment and plan with the entire medicine team, including my attending. I agree with the assessment and plan as documented above. - Patient's care was discussed with my attending physician. Luis Nguyễn MD Internal Medicine PGY-3
[2024-09-12] MEDS: RINGERS LACTATED 1000 ML 1,000 ML 75 ML IV (15:41)
--- NOTE | 2024-09-12 17:14 | PD.RESPRO ---
Documentation for date of: 09/12/24 Subjective Subjective Interval history: Patient seen and assessed at bedside. Patient's mentation much improved. Patient able to follow commands and answer questions appropriately. Exam Vital Signs Temp Pulse Resp BP Pulse Ox O2 Del Method 97.6 F 93 12 137/87 H 93 L Room Air 09/12/24 16:00 09/12/24 16:00 09/12/24 16:00 09/12/24 16:00 09/12/24 16:00 09/12/24 16:00 Narrative Exam Physical Exam GENERAL: NAD, AAOx3 HEENT: Moist mucosa. Eyes open, symmetrical, & clear CARDIO: Heart RRR, no obvious murmurs PULM: No noted coughing/dyspnea CTA B/L, no R/W/R GI: Abdomen soft, nondistended, no pain on palpation. BSx4 SKIN/MSK/EXT: Bilateral lower extremities rigid and tight, bruising at the knee and on shins NEURO: AAOx3, no focal neuro deficits, able to move all 4 extremities Objective Labs 09/12/24 04:35 09/12/24 04:35 Labs: Laboratory Results - last 24 hr 09/12/24 04:35 WBC 8.1 D RBC 3.83 L Hgb 9.7 L Hct 30.8 L MCV 80 MCH 25.3 MCHC 31.5 RDW Std Deviation 59.4 H Plt Count 113 L Neut % (Auto) 72 Lymph % (Auto) 10 [place] % (Auto) 15 H Eos % (Auto) 1 Baso % (Auto) 1 Neut # (Auto) 5.8 Lymph # (Auto) 0.8 L [place] # (Auto) 1.2 H Eos # (Auto) 0.1 Baso # (Auto) 0.1 Immature Gran # (Auto) 0.03 H Absolute Nucleated RBC 0.00 Immature Gran % 0 Nucleated RBC % 0 Sodium 143 Potassium 4.8 D Chloride 104 Carbon Dioxide 25.9 Anion Gap 13 BUN 41 H Creatinine 2.2 H D Estim Creat Clear Calc 32.3 L eGFR 33 L BUN/Creatinine Ratio 19 Glucose 156 H Calculated Osmolality 298 H Calcium 8.8 Corrected Calcium 9.4 Phosphorus 3.0 Magnesium 1.8 Total Bilirubin 0.4 AST 65 H ALT 77 H Alkaline Phosphatase 117 H Total Protein 5.6 L Albumin 3.2 L D Globulin 2.4 Albumin/Globulin Ratio 1.3 ABG Interpretation ABG results: 09/09/24 20:24 ABG pH Cancelled ABG pCO2 Cancelled ABG pO2 Cancelled ABG HCO3 Cancelled ABG O2 Saturation Cancelled ABG Base Excess Cancelled VBG pH 7.05 L VBG pCO2 22 L VBG pO2 55 VBG Base Excess -23 L Quality Measures Quality Measures VTE prophylaxis Assessment & Plan Assessment Current Active Medications: Generic Name Dose Route Start Last Admin Trade Name Freq PRN Reason Stop Dose Admin Acetaminophen 650 mg 09/10/24 01:25 09/12/24 08:22 Acetaminophen 325 Mg Tablet PO 10/10/24 01:24 650 mg Q4HR PRN Administration PAIN SCALE 1-3 (mild Acetaminophen 650 mg 09/10/24 01:25 Acetaminophen Supp 650 Mg Supp [place] 10/10/24 01:24 Q4HR PRN PAIN SCALE 1-3 (mild Al Hydrox/Mg Hydrox/Simethicone 30 ml 09/10/24 01:25 Mg Hyd/Al Hyd/Maday (Maalox Reg) Susp 30 Ml Udc PO 10/10/24 01:24 Q4HR PRN Heartburn or Upset Stomach Dextrose 25 ml 09/10/24 04:04 Dextrose 50%-Water Inj 50 Ml Syringe IV 10/10/24 04:03 Q15MIN PRN BG 50-70 responsive npo pt Dextrose 50 ml 09/10/24 04:04 Dextrose 50%-Water Inj 50 Ml Syringe IV 10/10/24 04:03 Q15MIN PRN BG <50 OR BG <70 & pt unresponsive Heparin Sodium (Porcine) 2,600 unit 09/10/24 05:31 09/11/24 16:02 Heparin Sod Inj 1000 Unit/Ml Vial 10 Ml INDWELLCAT 09/24/24 05:30 2,600 unit X1 PRN Administration DIALYSIS Albumin Human 25 gm in 100 mls @ 100 mls/min 09/10/24 05:33 Albuminar-25 Ivpb IV PRN PRN DIALYSIS Lactated Ringer's 1,000 mls @ 75 mls/hr 09/12/24 14:45 09/12/24 15:41 Lactated Ringers IV 10/12/24 14:44 75 mls/hr .[id number] BRANDON Administration Insulin Human Lispro 0 unit 09/10/24 06:00 09/12/24 12:51 Insulin Lispro (Admelog) 1 Unit/0.01 Ml Unit SC 10/10/24 05:59 Not Given Q6HR [facility] Protocol Levetiracetam 500 mg 09/10/24 09:00 09/12/24 08:14 Levetiracetam Inj 100 Mg/Ml Vial 5ml IVP 10/10/24 08:59 500 mg Q12HR BRANDON Administration Magnesium Hydroxide 30 ml 09/10/24 01:25 Milk Of Magnesia Susp 30 Ml Udc PO 10/10/24 01:24 QDAY PRN CONSTIPATION Naloxone HCl 0.4 mg 09/11/24 09:11 Naloxone Inj 1 Mg/Ml Syringe 2 Ml IV X1 PRN for respiration less than 14 Ondansetron HCl 4 mg 09/10/24 01:25 Ondansetron Inj 2 Mg/Ml Inj 2 Ml IV 10/10/24 01:24 Q6HR PRN NAUSEA OR VOMITING Pantoprazole Sodium 40 mg 09/11/24 09:15 09/12/24 08:13 Pantoprazole Inj 40 Mg Vial IV 10/11/24 09:14 40 mg BID BRANDON Administration Plan #Acute encephalopathy?improving #History of seizures Multifactorial: Metabolic/toxic/infectious Positive for opiates on UA Calcium improved Patient to continue with dialysis. Continue with home dose Keppra Patient much improved now, out of ICU, follows simple commands and hold conversation appropriately. #Sepsis #Shock #Diabetes #Hyperkalemia #Pneumonia #Acute renal failure Continue management per primary team Case discussed with attending Dr Mike Peña MD PGY3
[2024-09-13] VITALS (8 sets, daily range): BP systolic 125–155; BP diastolic 87–95; PULSE 89–97; RESP 12–20; TEMP 36.3–36.7; O2SAT 93–98; BMI 22.5
--- NOTE | 2024-09-13 | XR_ITS ---
Examination: Venous access removal of nontunneled dialysis catheter Fluoroscopy AP right hip 2 views Exam date and time: July 16, 2024 0924 hours INDICATIONS: No longer needed for dialysis catheter TECHNIQUE AND FINDINGS: Informed consent provided. Timeout performed. Skin prepped over the entrance site of the right common femoral dialysis catheter and sterile drape applied hand hygiene 1% lidocaine administered for local anesthesia Successful removal of the dialysis catheter Direct pressure applied for control of hemostasis Estimated blood loss 0 cc IMPRESSION: Successful removal of nontunneled dialysis catheter Fluoroscopy 0.1 minute radiation dose 0.38 milligray 2 spot fluoroscopic films of the right hip The last film no longer demonstrates the dialysis catheter
[2024-09-13] MEDS: RINGERS LACTATED 1000 ML 1,000 ML 75 ML IV ×2 (05:12→21:45)
[2024-09-13 06:01] LABS: Basophils % (Auto) 0 % (0-2.5); Eosinophils # (Auto) 0.2 Thou/mm3 (0.0-0.5); Eosinophils % (Auto) 2 % (0-10); Hematocrit 28.8 % (41.0-53.0); Hemoglobin 9.3 g/dL (13.5-16.0); Immature Granulocytes % (Auto) 0 % (0-0); Immature Granulocytes Auto 0.02 Thou/mm3 (0.00-0.00); Lymphocytes # (Auto) 0.7 Thou/mm3 (1.0-4.8); Lymphocytes % (Auto) 10 % (10-50); Mean Corpuscular HGB Conc 32.3 g/dl (31.0-37.0); Mean Corpuscular Hemoglobin 25.4 pg (25.0-35.0); Mean Corpuscular Volume 79 fL (80-100); Monocytes % (Auto) 16 % (0-12); Neutrophils # (Auto) 4.7 Thou/mm3 (1.8-7.7); Neutrophils % (Auto) 71 % (37-80); Nucleated Red Blood Cell % 0 /100 WBC (0); Platelet Count 94 Thou/mm3 (140-440); Red Blood Count 3.66 Miln/mm3 (4.50-5.90); White Blood Count 6.6 Thou/mm3 (3.8-10.6)
[2024-09-13 06:38] LABS: Alanine Aminotransferase 55 U/L (10-49); Albumin, Serum 2.8 gm/dL (3.4-4.8); Albumin/Globulin Ratio 1.3 (1.2-2.2); Alkaline Phosphatase 105 U/L (46-116); Anion Gap 11 (7-16); Aspartate Amino Transferase 30 U/L (0-34); BUN/Creatinine Ratio 25 Ratio (12-20); Bilirubin,Total 0.4 mg/dL (0.3-1.2); Blood Urea Nitrogen 37 mg/dL (9-23); Calcium 8.3 mg/dL (8.3-10.6); Calcium (Corrected) 9.3 mg/dL (8.5-10.1); Carbon Dioxide 28.5 mMol/L (20.0-31.0); Chloride 101 mMol/L (98-107); Creatinine (Component) 1.5 mg/dL (0.6-1.3); Estimated Creatinine Clearance 50.7 mL/min (>60); Globulin 2.1 gm/dL (2.3-3.5); Glucose 199 mg/dL (74-106); Magnesium 1.5 mg/dL (1.6-2.6); Osmolality,Calculated 294 (275-295); Phosphorous 2.2 mg/dL (2.4-5.1); Potassium 3.1 mMol/L (3.4-5.1); Sodium 140 mMol/L (136-145); Total Protein 4.9 gm/dL (5.7-8.2); eGFR 53 See Note
[2024-09-13] MEDS: INSULIN LISPRO (AdmeLOG) 1 UNIT/0.01 ML UNIT SC ×3 (08:14→20:57)
[2024-09-13] MEDS: PANTOPRAZOLE INJ 40 MG VIAL IV ×2 (08:15→20:51)
[2024-09-13] MEDS: levETIRAcetam INJ 100 MG/ML VIAL 5ML 500 MG IVP ×2 (08:15→20:52)
[2024-09-13] MEDS: Magnesium Sulfate 4 GM Ivpb 4 GM/50 ML BAG IV (08:15)
[2024-09-13] MEDS: POTASSIUM CHLORIDE 20 mEq TABCR PO (10:21)
[2024-09-13] MEDS: ACETAMINOPHEN 325 MG TABLET 650 MG PO ×2 (10:21→22:22)
[2024-09-13] MEDS: POTASSIUM CHLORIDE 20 mEq TABCR 40 MEQ PO (10:21)
--- NOTE | 2024-09-13 10:24 | PC.NURSE ---
patient trasfered via gurney back to room 370. hand off report given to kim weaver. Kim Rn and I assess dressing. dressing is clean dry and intact. site is soft, flat, non tender, and no hematoma present.
[2024-09-13] MEDS: Magnesium Sulfate 2 GM Ivpb 2 GM/50 ML BAG IV (11:24)
--- NOTE | 2024-09-13 12:30 | CHAP ---
Spiritual Care Volunteer prayed silently for them. (Volunteer was in the hospital from 09:15-12:30).
--- NOTE | 2024-09-13 13:52 | PC.PT ---
Patient is safe to ambulate in the halls and to the bathroom using a FWW and 1 staff assist. RN made aware.
--- NOTE | 2024-09-13 14:39 | ESPR_ITS ---
<Statement entered by Rich Guerra MD - 09/14/24 17:11> I have discussed and was present for the essential components of the history, physical examination, diagnosis, and treatment plan with the resident. I agree with the patient's care as documented by the resident and amended herein by me. Rich Guerra MD FACP. <Statement entered by Raven Mckeon MD - 09/14/24 14:37> I discussed with and supervised the investigator internal revenue physician who took care of this patient. I personally saw and examined the patient and discussed the assessment and plan with the entire medicine team, including my attending Dr. Guerra, I agree with most of the assessment and plan as documented below Raven Mckeon M.D. PGY-2 Documentation for date of: 09/13/24 Subjective Subjective Interval history: Patient seen today at the bedside fine awake, alert, oriented x 3. No overnight events reported. Vital signs stable at this time. Labs overall improving. Dialysis catheter will be removed today. Anticipate discharge in the next 24 to 48 hours after PT evaluation and recommendations. Exam Vital Signs Temp Pulse Resp BP Pulse Ox O2 Del Method 97.6 F 89 19 134/88 H 96 Room Air 09/13/24 12:00 09/13/24 12:00 09/13/24 12:00 09/13/24 12:00 09/13/24 12:00 09/13/24 12:00 Narrative Exam Physical Exam GENERAL: NAD, AAOx3 HEENT: Moist mucosa. Eyes open, symmetrical, & clear CARDIO: Heart RRR, no obvious murmurs PULM: No noted coughing/dyspnea CTA B/L, no R/W/R GI: Abdomen soft, nondistended, no pain on palpation. BSx4 SKIN/MSK/EXT: Bilateral lower extremities rigid and tight, bruising at the knee and on shins NEURO: AAOx3, no focal neuro deficits, able to move all 4 extremities Objective Labs 09/13/24 05:18 09/13/24 05:18 Labs: Laboratory Results - last 24 hr 09/13/24 05:18 WBC 6.6 RBC 3.66 L Hgb 9.3 L Hct 28.8 L MCV 79 L MCH 25.4 MCHC 32.3 RDW Std Deviation 58.0 H Plt Count 94 L Neut % (Auto) 71 Lymph % (Auto) 10 [place] % (Auto) 16 H Eos % (Auto) 2 Baso % (Auto) 0 Neut # (Auto) 4.7 Lymph # (Auto) 0.7 L [place] # (Auto) 1.0 H Eos # (Auto) 0.2 Baso # (Auto) 0.0 Immature Gran # (Auto) 0.02 H Absolute Nucleated RBC 0.00 Immature Gran % 0 Nucleated RBC % 0 Sodium 140 Potassium 3.1 L D Chloride 101 Carbon Dioxide 28.5 Anion Gap 11 BUN 37 H Creatinine 1.5 H D Estim Creat Clear Calc 50.7 L eGFR 53 L BUN/Creatinine Ratio 25 H Glucose 199 H Calculated Osmolality 294 Calcium 8.3 Corrected Calcium 9.3 Phosphorus 2.2 L Magnesium 1.5 L Total Bilirubin 0.4 AST 30 ALT 55 H Alkaline Phosphatase 105 Total Protein 4.9 L Albumin 2.8 L Globulin 2.1 L Albumin/Globulin Ratio 1.3 ABG Interpretation ABG results: 09/09/24 20:24 ABG pH Cancelled ABG pCO2 Cancelled ABG pO2 Cancelled ABG HCO3 Cancelled ABG O2 Saturation Cancelled ABG Base Excess Cancelled VBG pH 7.05 L VBG pCO2 22 L VBG pO2 55 VBG Base Excess -23 L Quality Measures Quality Measures VTE prophylaxis Assessment & Plan Assessment Current Active Medications: Generic Name Dose Route Start Last Admin Trade Name Freq PRN Reason Stop Dose Admin Acetaminophen 650 mg 09/10/24 01:25 09/13/24 10:21 Acetaminophen 325 Mg Tablet PO 10/10/24 01:24 650 mg Q4HR PRN Administration PAIN SCALE 1-3 (mild Acetaminophen 650 mg 09/10/24 01:25 Acetaminophen Supp 650 Mg Supp [place] 10/10/24 01:24 Q4HR PRN PAIN SCALE 1-3 (mild Al Hydrox/Mg Hydrox/Simethicone 30 ml 09/10/24 01:25 Mg Hyd/Al Hyd/Maday (Maalox Reg) Susp 30 Ml Udc PO 10/10/24 01:24 Q4HR PRN Heartburn or Upset Stomach Dextrose 25 ml 09/10/24 04:04 Dextrose 50%-Water Inj 50 Ml Syringe IV 10/10/24 04:03 Q15MIN PRN BG 50-70 responsive npo pt Dextrose 50 ml 09/10/24 04:04 Dextrose 50%-Water Inj 50 Ml Syringe IV 10/10/24 04:03 Q15MIN PRN BG <50 OR BG <70 & pt unresponsive Heparin Sodium (Porcine) 2,600 unit 09/10/24 05:31 09/11/24 16:02 Heparin Sod Inj 1000 Unit/Ml Vial 10 Ml INDWELLCAT 09/24/24 05:30 2,600 unit X1 PRN Administration DIALYSIS Albumin Human 25 gm in 100 mls @ 100 mls/min 09/10/24 05:33 Albuminar-25 Ivpb IV PRN PRN DIALYSIS Lactated Ringer's 1,000 mls @ 75 mls/hr 09/12/24 14:45 09/13/24 05:12 Lactated Ringers IV 10/12/24 14:44 75 mls/hr .[id number] BRANDON Administration Insulin Human Lispro 0 unit 09/13/24 07:30 09/13/24 12:05 Insulin Lispro (Admelog) 1 Unit/0.01 Ml Unit SC 10/13/24 07:29 Not Given ACHS [facility] Protocol Levetiracetam 500 mg 09/10/24 09:00 09/13/24 08:15 Levetiracetam Inj 100 Mg/Ml Vial 5ml IVP 10/10/24 08:59 500 mg Q12HR BRANDON Administration Magnesium Hydroxide 30 ml 09/10/24 01:25 Milk Of Magnesia Susp 30 Ml Udc PO 10/10/24 01:24 QDAY PRN CONSTIPATION Naloxone HCl 0.4 mg 09/11/24 09:11 Naloxone Inj 1 Mg/Ml Syringe 2 Ml IV X1 PRN for respiration less than 14 Ondansetron HCl 4 mg 09/10/24 01:25 Ondansetron Inj 2 Mg/Ml Inj 2 Ml IV 10/10/24 01:24 Q6HR PRN NAUSEA OR VOMITING Pantoprazole Sodium 40 mg 09/11/24 09:15 09/13/24 08:15 Pantoprazole Inj 40 Mg Vial IV 10/11/24 09:14 40 mg BID BRANDON Administration Plan 59-year-old male with past medical history of hypertension, diabetes, gastric bypass, DVT on Eliquis, PUD and GI bleed, seizures and chronic back pain who was brought to the ED due to altered mental status on 09/09/2024. Admitted for acute encephalopathy, requiring dialysis for acute renal failure. #Acute on chronic renal failure The patient has a history of CKD and is on currently. On admission, CMP showed a BUN of 119 and creatinine of 7.2. Renal ultrasound showed bilateral cortical thinning and parenchymal scarring consistent with CKD. Patient received 4 L of IV fluids Nephrology, Dr. Liang was consulted for emergent hemodialysis and patient had 1 session of ultrafiltration done. ? remove HD cath - Avoid nephrotoxic medications - Renally dose medications #Acute metabolic encephalopathy?resolved #Uremia?improving #? accidental overdose Patient was found to be altered by daughter. On presentation to the ED, GCS was 3, patient had pinpoint pupils, takes oxycodone and hydrocodone at home. Initial CMP significant for elevated BUN at 119 and creatinine of 7.[address] was done was negative. Required multiple doses of Narcan -Narcan 0.4 mg as needed for respiratory rate less than 14 -Hemodialysis as scheduled by nephrology #History of seizures Patient has a history of seizures, has not had any episodes in years. On Keppra 500 mg twice daily. -Will continue Keppra #Community-acquired pneumonia-ruled out Initial chest x-ray to evaluate source of sepsis showed some findings consistent with likely pneumonia. The patient was initially started on ceftriaxone and azithromycin and then switched to Zosyn. Cultures pending, will de-escalate antibiotics to continue on ceftriaxone and azithromycin. 09/11/2024-chest x-ray reviewed again, infiltrates seen seem to be more chronic as they have been present on imaging over the past couple months. Antibiotics discontinued. #Transaminitis-improving Mild elevation in ALT and AST on admission, currently downtrending. AST at 112 and ALT 95. Normal T. bili and elevated ALP. ?Will continue to monitor trend #Microcytic anemia hemoglobin at 6.9 today, repeated 6.8. MCV 77 no signs of active bleeding. Will transfuse 1 unit of PRBC, will curbside consult GI Dr. Alston as patient did have an EGD done about 5 months ago and was recommended for capsule endoscopy that has not been done. ?GI consulted, appreciate recommendations #History of type II DM The patient has a history of type II DM with last A1c done about 3 months ago of 7.2. Admitting glucose at 207. ?SSI ? Hypoglycemia protocol in place #Hypotension-resolved #Undifferentiated shock-resolved #Anion gap metabolic acidosis-resolved #Hyperkalemia-resolved #Leukopenia, likely dilutional-resolved Case discussed with my senior Dr. Mckeon PGY-[address] Charlie Reddy MD PGY-1 Disposition: ICU downgraded to floors Fluids: None Feeding: Clear liquid Thrombo prophylaxis: Heparin Gastric Ulcer prophylaxis: Pantoprazole CODE STATUS: Full code
--- NOTE | 2024-09-13 19:12 | PD.RESPRO ---
Documentation for date of: 09/13/24 Subjective Subjective Interval history: Patient examined at bedside. No major complaints. Plan for removal of fem cath and patient no longer needs additional dialysis. Urine output overnight 600cc. LEON improving with Cr 1.5, GFR improved to 53. Encourage oral intake after LR maintainence fluid. Paitent is stable, will continue to monitor. Exam Vital Signs Temp Pulse Resp BP Pulse Ox O2 Del Method 97.4 F 89 18 134/93 H 95 Room Air 09/13/24 16:00 09/13/24 16:00 09/13/24 16:00 09/13/24 16:00 09/13/24 16:00 09/13/24 16:00 Narrative Exam GENERAL: NAD, AAOx3 HEENT: Moist mucosa. Eyes open, symmetrical, & clear CARDIO: Heart RRR, no obvious murmurs PULM: No noted coughing/dyspnea CTA B/L, no R/W/R GI: Abdomen soft, nondistended, no pain on palpation. BSx4 SKIN/MSK/EXT: Bilateral lower extremities rigid and tight, bruising at the knee and on shins NEURO: AAOx3, no focal neuro deficits, able to move all 4 extremities Objective Labs 09/14/24 04:27 09/14/24 04:27 Labs: Laboratory Results - last 24 hr 09/13/24 05:18 WBC 6.6 RBC 3.66 L Hgb 9.3 L Hct 28.8 L MCV 79 L MCH 25.4 MCHC 32.3 RDW Std Deviation 58.0 H Plt Count 94 L Neut % (Auto) 71 Lymph % (Auto) 10 [place] % (Auto) 16 H Eos % (Auto) 2 Baso % (Auto) 0 Neut # (Auto) 4.7 Lymph # (Auto) 0.7 L [place] # (Auto) 1.0 H Eos # (Auto) 0.2 Baso # (Auto) 0.0 Immature Gran # (Auto) 0.02 H Absolute Nucleated RBC 0.00 Immature Gran % 0 Nucleated RBC % 0 Sodium 140 Potassium 3.1 L D Chloride 101 Carbon Dioxide 28.5 Anion Gap 11 BUN 37 H Creatinine 1.5 H D Estim Creat Clear Calc 50.7 L eGFR 53 L BUN/Creatinine Ratio 25 H Glucose 199 H Calculated Osmolality 294 Calcium 8.3 Corrected Calcium 9.3 Phosphorus 2.2 L Magnesium 1.5 L Total Bilirubin 0.4 AST 30 ALT 55 H Alkaline Phosphatase 105 Total Protein 4.9 L Albumin 2.8 L Globulin 2.1 L Albumin/Globulin Ratio 1.3 ABG Interpretation ABG results: 09/09/24 20:24 ABG pH Cancelled ABG pCO2 Cancelled ABG pO2 Cancelled ABG HCO3 Cancelled ABG O2 Saturation Cancelled ABG Base Excess Cancelled VBG pH 7.05 L VBG pCO2 22 L VBG pO2 55 VBG Base Excess -23 L Quality Measures Quality Measures VTE prophylaxis Assessment & Plan Assessment Current Active Medications: Generic Name Dose Route Start Last Admin Trade Name Freq PRN Reason Stop Dose Admin Acetaminophen 650 mg 09/10/24 01:25 09/13/24 10:21 Acetaminophen 325 Mg Tablet PO 10/10/24 01:24 650 mg Q4HR PRN Administration PAIN SCALE 1-3 (mild Acetaminophen 650 mg 09/10/24 01:25 Acetaminophen Supp 650 Mg Supp TX 10/10/24 01:24 Q4HR PRN PAIN SCALE 1-3 (mild Al Hydrox/Mg Hydrox/Simethicone 30 ml 09/10/24 01:25 Mg Hyd/Al Hyd/Maday (Maalox Reg) Susp 30 Ml Udc PO 10/10/24 01:24 Q4HR PRN Heartburn or Upset Stomach Dextrose 25 ml 09/10/24 04:04 Dextrose 50%-Water Inj 50 Ml Syringe IV 10/10/24 04:03 Q15MIN PRN BG 50-70 responsive npo pt Dextrose 50 ml 09/10/24 04:04 Dextrose 50%-Water Inj 50 Ml Syringe IV 10/10/24 04:03 Q15MIN PRN BG <50 OR BG <70 & pt unresponsive Heparin Sodium (Porcine) 2,600 unit 09/10/24 05:31 09/11/24 16:02 Heparin Sod Inj 1000 Unit/Ml Vial 10 Ml INDWELLCAT 09/24/24 05:30 2,600 unit X1 PRN Administration DIALYSIS Albumin Human 25 gm in 100 mls @ 100 mls/min 09/10/24 05:33 Albuminar-25 Ivpb IV PRN PRN DIALYSIS Lactated Ringer's 1,000 mls @ 75 mls/hr 09/12/24 14:45 09/13/24 05:12 Lactated Ringers IV 10/12/24 14:44 75 mls/hr .[id number] BRANDON Administration Insulin Human Lispro 0 unit 09/13/24 07:30 09/13/24 16:51 Insulin Lispro (Admelog) 1 Unit/0.01 Ml Unit SC 10/13/24 07:29 3 unit ACHS BRANDON Administration Protocol Levetiracetam 500 mg 09/10/24 09:00 09/13/24 08:15 Levetiracetam Inj 100 Mg/Ml Vial 5ml IVP 10/10/24 08:59 500 mg Q12HR BRANDON Administration Magnesium Hydroxide 30 ml 09/10/24 01:25 Milk Of Magnesia Susp 30 Ml Udc PO 10/10/24 01:24 QDAY PRN CONSTIPATION Naloxone HCl 0.4 mg 09/11/24 09:11 Naloxone Inj 1 Mg/Ml Syringe 2 Ml IV X1 PRN for respiration less than 14 Ondansetron HCl 4 mg 09/10/24 01:25 Ondansetron Inj 2 Mg/Ml Inj 2 Ml IV 10/10/24 01:24 Q6HR PRN NAUSEA OR VOMITING Pantoprazole Sodium 40 mg 09/11/24 09:15 09/13/24 08:15 Pantoprazole Inj 40 Mg Vial IV 10/11/24 09:14 40 mg BID BRANDON Administration Plan Ric Wayne is 59 yr male with PMH of PE/DVT on Eliquis, Hx of PUD with GI bleed requiring transfusions, IDDM I, Katherine-en-Y gastric bypass (2007), and hx of seizures on Keppra BIBA from home due to altered mentation from baseline. He has had poor oral intake for serveral days. Nephrology was consulted for LEON and hyperkalemia with acidosis. He underwent emergent dialysis shortly after admission. #Acute on chronic renal failure-improving Most likely due to decrease intake and unknown time of hypotension since past few days. Refractory hypotension causing hypoperfusion leading to possible ATN. On admission, CMP showed a BUN of 119 and creatinine of 7.2. Renal ultrasound showed bilateral cortical thinning and parenchymal scarring consistent with CKD. Patient received 4 L of IV fluids Nephrology was consulted for emergent hemodialysis and patient had 1 session of ultrafiltration done. AGMA resolving with AG 19 and bicarb 20 today. Completed bicarb drip 09/10.. -has completed total of 2 HD sessions since admission -plan to remove fem cath per primary team -no additional dialysis session at this time -complete LR maintainence and encourage oral intake -Repeat renal panel 12 hours -Avoid nephrotoxic medications -Renally dose medications - C3, C4, ANCA, and anti-GBM pending #AGMA-resolved #Acute metabolic encephalopathy-resolved #Hyperkalemia-resolved #Likely accidental overdose #History of seizures #Community-acquired pneumonia #Leukopenia, likely dilutional #Anemia #Transaminitis #History of type II DM The patient's management plan was discussed with my attending physician Dr. Liang. Talya Mcdonald, PGY-1 Attending Provider Attestation/Addendum Pt seen and examined. Labs and radiology reviewed. Agree with assessment and plan and findings by resident. Theo Liang MD
--- NOTE | 2024-09-13 19:36 | ESPR_ITS ---
Documentation for date of: 09/13/24 Exam - Neurology Vital Signs Temp Pulse Resp BP Pulse Ox O2 Del Method 97.4 F 89 18 134/93 H 95 Room Air 09/13/24 16:00 09/13/24 16:00 09/13/24 16:00 09/13/24 16:00 09/13/24 16:00 09/13/24 16:00 Objective Labs 09/13/24 05:18 09/13/24 05:18 Labs: Laboratory Results - last 24 hr 09/13/24 05:18 WBC 6.6 RBC 3.66 L Hgb 9.3 L Hct 28.8 L MCV 79 L MCH 25.4 MCHC 32.3 RDW Std Deviation 58.0 H Plt Count 94 L Neut % (Auto) 71 Lymph % (Auto) 10 [place] % (Auto) 16 H Eos % (Auto) 2 Baso % (Auto) 0 Neut # (Auto) 4.7 Lymph # (Auto) 0.7 L [place] # (Auto) 1.0 H Eos # (Auto) 0.2 Baso # (Auto) 0.0 Immature Gran # (Auto) 0.02 H Absolute Nucleated RBC 0.00 Immature Gran % 0 Nucleated RBC % 0 Sodium 140 Potassium 3.1 L D Chloride 101 Carbon Dioxide 28.5 Anion Gap 11 BUN 37 H Creatinine 1.5 H D Estim Creat Clear Calc 50.7 L eGFR 53 L BUN/Creatinine Ratio 25 H Glucose 199 H Calculated Osmolality 294 Calcium 8.3 Corrected Calcium 9.3 Phosphorus 2.2 L Magnesium 1.5 L Total Bilirubin 0.4 AST 30 ALT 55 H Alkaline Phosphatase 105 Total Protein 4.9 L Albumin 2.8 L Globulin 2.1 L Albumin/Globulin Ratio 1.3 ABG Interpretation ABG results: 09/09/24 20:24 ABG pH Cancelled ABG pCO2 Cancelled ABG pO2 Cancelled ABG HCO3 Cancelled ABG O2 Saturation Cancelled ABG Base Excess Cancelled VBG pH 7.05 L VBG pCO2 22 L VBG pO2 55 VBG Base Excess -23 L Assessment & Plan Assessment and plan (1) Altered mental status: Status: Acute (2) Acute hypotension: Status: Acute (3) Seizure disorder: Status: Chronic
[2024-09-14] VITALS: BP 131/88; PULSE 90; PULSE 95; RESP 18; TEMP 37.2; O2SAT 96
[2024-09-14 04:00] VITALS: BP 143/92; PULSE 90; PULSE 94; RESP 18; TEMP 36.3; O2SAT 98
[2024-09-14 06:00] VITALS: BMI 22.5
[2024-09-14 06:07] LABS: Basophils % (Auto) 0 % (0-2.5); Eosinophils # (Auto) 0.1 Thou/mm3 (0.0-0.5); Eosinophils % (Auto) 2 % (0-10); Hematocrit 29.3 % (41.0-53.0); Hemoglobin 9.1 g/dL (13.5-16.0); Immature Granulocytes % (Auto) 1 % (0-0); Immature Granulocytes Auto 0.03 Thou/mm3 (0.00-0.00); Lymphocytes # (Auto) 0.7 Thou/mm3 (1.0-4.8); Lymphocytes % (Auto) 12 % (10-50); Mean Corpuscular HGB Conc 31.1 g/dl (31.0-37.0); Mean Corpuscular Hemoglobin 25.4 pg (25.0-35.0); Mean Corpuscular Volume 82 fL (80-100); Monocytes % (Auto) 17 % (0-12); Neutrophils # (Auto) 3.8 Thou/mm3 (1.8-7.7); Neutrophils % (Auto) 67 % (37-80); Nucleated Red Blood Cell % 0 /100 WBC (0); Platelet Count 98 Thou/mm3 (140-440); RDW Standard Deviation 61.6 fL (35.1-43.9); Red Blood Count 3.58 Miln/mm3 (4.50-5.90); White Blood Count 5.6 Thou/mm3 (3.8-10.6)
[2024-09-14 06:25] LABS: Alanine Aminotransferase 42 U/L (10-49); Albumin, Serum 2.7 gm/dL (3.4-4.8); Albumin/Globulin Ratio 1.3 (1.2-2.2); Alkaline Phosphatase 110 U/L (46-116); Anion Gap 5 (7-16); Aspartate Amino Transferase 23 U/L (0-34); BUN/Creatinine Ratio 20 Ratio (12-20); Bilirubin,Total 0.3 mg/dL (0.3-1.2); Blood Urea Nitrogen 26 mg/dL (9-23); Calcium 8.5 mg/dL (8.3-10.6); Calcium (Corrected) 9.5 mg/dL (8.5-10.1); Carbon Dioxide 30.1 mMol/L (20.0-31.0); Chloride 102 mMol/L (98-107); Creatinine (Component) 1.3 mg/dL (0.6-1.3); Estimated Creatinine Clearance 58.5 mL/min (>60); Globulin 2.1 gm/dL (2.3-3.5); Glucose 227 mg/dL (74-106); Osmolality,Calculated 285 (275-295); Sodium 137 mMol/L (136-145); Total Protein 4.8 gm/dL (5.7-8.2); eGFR > 60 See Note
[2024-09-14] MEDS: INSULIN LISPRO (AdmeLOG) 1 UNIT/0.01 ML UNIT SC (07:39)
[2024-09-14 08:00] VITALS: BP 139/91; PULSE 88; PULSE 90; RESP 18; TEMP 35.9; O2SAT 96
[2024-09-14] MEDS: levETIRAcetam INJ 100 MG/ML VIAL 5ML 500 MG IVP (09:20)
[2024-09-14] MEDS: PANTOPRAZOLE INJ 40 MG VIAL IV (09:22)
[2024-09-14] MEDS: RINGERS LACTATED 1000 ML 1,000 ML 75 ML IV (09:22)
[2024-09-14 12:00] VITALS: BP 145/90; PULSE 85; PULSE 91; RESP 19; TEMP 36.3; O2SAT 97
--- NOTE | 2024-09-14 12:09 | ESDS_ITS ---
<Statement entered by Rich Guerra MD - 09/14/24 17:11> I have discussed and was present for the essential components of the history, physical examination, diagnosis, and treatment plan with the resident. I agree with the patient's care as documented by the resident and amended herein by me. Rich Guerra MD FACP. Planned Discharge Date 09/14/24 DS: Providers Provider Date of admission: 09/10/24 01:25 Primary care physician: Physician No Primary/Family Admitting Provider: Steven Syed MD Attending Provider on Admission: Rich Guerra MD Consults: 09/09/24 16:53 Consult to Neurology / Tele-Neurology Routine Comment: Consulting Provider: [facility] 09/09/24 18:40 Consult to Neurology / Tele-Neurology Stat Comment: Consulting Provider: Dinesh Mckeon 09/09/24 19:44 Consult to Nephrology Stat Comment: Consulting Provider: Theo Liang 09/10/24 07:15 Referral Wound Care Routine Comment: iam coccyx 09/12/24 10:29 Referral Physical Therapy Stat Comment: Physician Instructions: Attending Provider on DC: Rich Guerra MD Discharging Provider: Lino Reddy MD Anticipated date of discharge: 09/14/24 DS: Diagnosis Problem List Completed Was Problem List Reviewed/Reconciled?: Yes Hospital Course Hospital Course Hospital course: 59-year-old male with past medical history of hypertension, diabetes, gastric bypass, DVT on Eliquis, PUD and GI bleed, seizures and chronic back pain who was brought to the ED due to altered mental status on 09/09/2024. Admitted for acute encephalopathy, requiring dialysis for acute renal failure. During hospital stay patient was originally admitted to the ICU which required pressors due to shock undifferentiated shock, later was weaned off of pressors extubated. Patient had severe metabolic acidosis and hyperkalemia requiring emergent hemodialysis after which patient was weaned off hemodialysis and kidney function returned to baseline. Patient was also monitored until mental status returned to baseline. At this time patient is medically stable for discharge. Take tylenol first as needed for pain, if pain not controlled take oxycodone 30mg once a day as needed. Follow up with PCP within 1 week of discharge. Follow up with Nephrology within 2 weeks of discharge. Should any symptoms recur or worsen patient is instructed to return to the ED. Problem List: #Acute on chronic renal failure-resolved #Acute metabolic encephalopathy?resolved #Uremia?resolved #? accidental overdose #History of seizures #Community-acquired pneumonia-ruled out #Transaminitis-improving #Microcytic anemia #History of type II DM #Hypotension-resolved #Undifferentiated shock-resolved #Anion gap metabolic acidosis-resolved #Hyperkalemia-resolved #Leukopenia, likely dilutional-resolved Case discussed with my attending Dr. Charlie Reddy MD PGY-1 Status at Discharge Functional status at discharge: independent ambulation Overall status at discharge: patient is back to baseline Time Spent with Patient Time attestation: Total time spent providing and/or coordinating discharge services: Time spent: Greater than 30 minutes Exam Vital Signs Temp Pulse Resp BP Pulse Ox O2 Del Method 96.7 F L 90 18 139/91 H 96 Room Air 09/14/24 08:00 09/14/24 08:00 09/14/24 08:00 09/14/24 08:00 09/14/24 08:00 09/14/24 08:00 Narrative Exam Physical Exam GENERAL: NAD, AAOx3 HEENT: Moist mucosa. Eyes open, symmetrical, & clear CARDIO: Heart RRR, no obvious murmurs PULM: No noted coughing/dyspnea CTA B/L, no R/W/R GI: Abdomen soft, nondistended, no pain on palpation. BSx4 SKIN/MSK/EXT: Bilateral lower extremities rigid and tight, bruising at the knee and on shins NEURO: AAOx3, no focal neuro deficits, able to move all 4 extremities Discharge Plan Plan Patient Disposition: Home w/HOME HEALTH Patient condition on transfer: Stable Care Plan Goals: Take tylenol first as needed for pain, if pain not controlled take oxycodone 30mg once a day as needed Follow up with PCP within 1 week of discharge Follow up with Nephrology within 2 weeks of discharge Should any symptoms recur or worsen patient is instructed to return to the ED. Prescriptions/Referrals Prescriptions/Med Rec: New lidocaine 5 % adhesive patch,medicated 3 patch topical QDAY Qty: 30 3RF Rx Instructions: leave on most painful area for up to 12 hrs Continued ramipril [Altace] 10 mg Capsule 10 mg PO QDAY ondansetron HCl 8 mg tablet 8 mg PO DAILY PRN (Reason: Nausea) naloxone [Narcan] 4 mg/actuation spray,non-aerosol 1 spray intranasal Q2M PRN (Reason: Respiratory Distress) Rx Instructions: spray 1 dose into ONE nostril; alternate nostrils w each dose until help arrives levetiracetam 500 mg tablet 500 mg PO BID potassium chloride 10 mEq Tablet Extended Release 10 meq PO PRN PRN (Reason: when taking lasix) propranolol 10 mg Tablet 10 mg PO BID Kerendia 10 mg tablet 10 mg PO QDAY (DME) FreeStyle Ramila 3 Sensor Device See Rx Instructions .Route Qty: 1 0RF Rx Instructions: As directed Discontinued oxycodone [Roxicodone] 30 mg tablet 30 mg PO 4XD PRN (Reason: Pain) Referrals: No Primary/Family,Physician [Primary Care Provider] - Patient/Caregiver Discharge Instructions Discharge Activity: activity as tolerated Print Language: Greek Stand Alone Forms: Sherrell Award Info., Patient Portal Info Letter Discharge Order Discharge Orders: Discharge (Routine); Ordered 09/14/24 Ordered By: Lino Reddy Quality Discharge Quality Measures VTE prophylaxis
--- NOTE | 2024-09-14 18:57 | PC.CM ---
Addendum entered by Shahrzad Dietrich RN 09/15/24 12:56: [facility] accept patient and they will open on 09/17. Original Note: I did not see a preference for home health agency so I sent to all home health.
[2024-09-16 07:04] LABS: Glomerular Basemt Memb Ab IGG* <1.0 AI (<1.0)
[2024-09-18 06:43] LABS: Cortisol,total,LC/MS/MS* 36.4 mcg/dL
[2024-09-19 07:13] LABS: ANCA Screen NEGATIVE (NEGATIVE); Complement Component C3* 66 mg/dL (82-185); Complement Component C4c* 17 mg/dL (15-53); Myeloperoxidase Ab <1.0 AI (<1.0); Proteinase-3 Ab <1.0 AI (<1.0)
== END 2024-09-14 12:50 | disposition home health service (06) | DRG 682 ==
LOC: SERX 19:55 → S2SX 09-10 03:29 → SERHOLD 09-10 08:04 → S2SX 09-11 08:54 → S2NX 09-11 16:45 → S3SX 09-12 19:35
PROVIDERS: Internal Medicine; Physician Assistant; Student in an Organized Health Care Education/Training Program; Admitting Provider Internal Medicine; Emergency Provider Emergency Medicine; Visit Provider Internal Medicine
DX: N17.9 Acute kidney failure, unspecified (principal); G93.41 Metabolic encephalopathy; R57.9 Shock, unspecified; E87.4 Mixed disorder of acid-base balance; N18.9 Chronic kidney disease, unspecified; I12.9 Hypertensive chronic kidney disease with stage 1 through stage 4 chronic kidney disease, or unspecified chronic kidney disease; M54.9 Dorsalgia, unspecified; G89.29 Other chronic pain; G40.909 Epilepsy, unspecified, not intractable, without status epilepticus; R74.01 Elevation of levels of liver transaminase levels; E10.22 Type 1 diabetes mellitus with diabetic chronic kidney disease; E87.5 Hyperkalemia; D63.1 Anemia in chronic kidney disease; D72.819 Decreased white blood cell count, unspecified; Z98.84 Bariatric surgery status; Z86.711 Personal history of pulmonary embolism; Z79.4 Long term (current) use of insulin; Z87.11 Personal history of peptic ulcer disease; Z79.01 Long term (current) use of anticoagulants; Z79.891 Long term (current) use of opiate analgesic; Z79.899 Other long term (current) drug therapy; Z86.718 Personal history of other venous thrombosis and embolism; T50.901A Poisoning by unspecified drugs, medicaments and biological substances, accidental (unintentional), initial encounter
CPT/HCPCS: 36415; 36600; 70450; 71045; 71250; 74176; 76770; 77001; 80048; 80053; 80074; 80307; 81001; 82533; 82550; 82570; 82803; 83520; 83540; 83550; 83605; 83690; 83735; 84100; 84145; 84156; 84300; 84484; 85014; 85018; 85025; 85610; 85730; 86021; 86036; 86160; 86706; 86850; 86900; 86901; 86923; 87040; 87081; 87086; 87205; 87502; 87811; 93005; 93225; 93306; 96365; 96375; 97162; 99291; A4649; J0456; J0612; J0696; J1643; J1815; J1940; J1953; J2310; J2470; J2543; J2598; J3475; J3490; J7040; J7050; J7060; J7120; P9016; A9270

== ENCOUNTER 2025-02-12 11:34 | Emergency (ER) | payer BC, SELFPAY ==
[2025-02-12 12:03] VITALS: BP 118/82; PULSE 131; RESP 20; TEMP 36.7; O2SAT 98; BMI 22.0
--- NOTE | 2025-02-12 12:09 | XR_ITS ---
Exam: Chest PA, lateral 2 views Technique: Chest upright PA lateral 2 views Date and time of exam: 02/12/2025, 12:36 PM INDICATION: Trauma Findings: Normal heart size. No mediastinal adenopathy. No acute fracture No pulmonary edema or pneumonia. Partially visualized humeral fracture. Please see humerus report for details. Stable chronic elevation the right hemidiaphragm. Impression: No active disease. Partially visualized humeral fracture. Please see humerus report for details. Stable chronic elevation the right hemidiaphragm.
--- NOTE | 2025-02-12 12:09 | XR_ITS ---
Examination: Humerus 2 views right Technique: Humerus, AP lateral 2 views Date and time of exam: 02/13/2020 12:36 PM. FINDINGS: Comminuted displaced fracture of the humeral diaphysis. No other acute bony abnormality. IMPRESSION: Comminuted humeral fracture as above.
--- NOTE | 2025-02-12 12:09 | XR_ITS ---
Examination: CT brain head without contrast. 2-D sagittal coronal reconstructions Date and time of exam:February 12, 2025, 12:29 PM Indications: Ground-level fall today with head pain CTDI: vol (mGy):49.4. DLP: (mGycm):1000. Technique: Multiple CT axial sections of the brain have been obtained, 5 mm slice thickness. Contrast has not been administered. 2-D sagittal, coronal reconstructions have been obtained Low dose protocols were performed. One or more of the following dose reduction techniques were used; automated exposure control, adjustment of the mA and/or KV according to patient size, use of iterative reconstruction technique. Findings: No significant ventricular enlargement. Intra-axial or extra-axial hemorrhage density is not seen. No mass effect or midline shift Basal cisterns are not remarkable. Fourth ventricle is midline. Cranial vault intact. Impression: Negative for acute hemorrhage, mass effect or midline shift
--- NOTE | 2025-02-12 12:09 | XR_ITS ---
Examination: CT cervical spine without contrast 2-D sagittal reconstructions 2-D coronal reconstructions 3-D reconstructions. Exam date and time:09/12/2024, 12:29 PM CTDI:vol (mGy) 13.3 DLP: (mGycm) 300 INDICATION: Trauma COMPARISON: 01/08/2024 Technique: Multiple 2 mm axial sections of the cervical spine have been obtained. The coronal and sagittal reconstructions have been obtained. 3-D reconstructions have been obtained. Low dose protocols were performed. One or more of the following dose reduction techniques were used; automated exposure control, adjustment of the mA and/or KV according to patient size, use of iterative reconstruction technique. Findings: Axial sections demonstrate intact base of the skull. C1 exhibit satisfactory relationship to the odontoid. No acute cervical vertebral body fracture seen. Alignment posterior spinous processes satisfactory. Impression: No acute cervical fracture.
--- NOTE | 2025-02-12 12:11 | EDNOTE_ITS ---
ED General RME/HPI General Chief complaint: Fall Stated complaint: FALL LAST NIGHT, INJURY R) UPPER ARM Time Seen by Provider: 02/12/25 12:14 Arrival date/time: 02/12/25 11:34 CC: Right arm pain right chest wall pain HPI patient fell 18 hours ago after tripping falling on the right arm patient denies falling on his head patient is on Plavix secondary to clot in his heart and leg . Patient has history of seizures did not take his Keppra this morning no seizure pre or post fall. Patient denies shortness of breath or difficulty breathing. Patient denies altered mental status loss of consciousness altered level of consciousness dizziness blurred vision or seeing spots. On initial assessment patient is n oted to be tachycardic but has normal respiration rate speaking in full sentences. Related Data Home Medications ?Medication ?Instructions ?Recorded ?Confirmed ramipril 10 mg capsule (Altace) 10 mg PO QDAY 05/22/19 09/09/24 ondansetron HCl 8 mg tablet 8 mg PO DAILY PRN Nausea 0 09/22/22 09/09/24 naloxone 4 mg/actuation nasal 1 spray intranasal Q2M P RN 12/10/22 09/09/24 spray (Narcan) Respiratory Distress levetiracetam 500 mg tablet 500 mg PO BID 07/18/23 potassium chloride 10 mEq 10 meq PO PRN PRN when takin g lasix 07/19/23 09/09/24 tablet,extended release propranolol 10 mg tablet 10 mg PO BID 07/19/23 finerenone 10 mg tablet (Kerendia) 10 mg PO QDAY 04/0309/09/24 Previous Rx's ?Medication ?Instructions ?Recorded blood-glucose sensor (FreeStyle #1 ea 07/16/24 Ramila 3 Sensor device) lidocaine 5 % topical patch 3 patch topical QDAY #30 e a 09/14/24 oxycodone-acetaminophen 5 mg-325 1 tab PO BID PRN pain #14 tabs 02/12/25 mg tablet (Percocet) Allergies Allergy/AdvReac Type Severity Reaction Status Date / Time ibuprofen AdvReac Severe gastric Verified 02/12/25 11:37 bypass Review of Systems Review of Systems Narrative Review of Systems: GEN: No fever, no chills, no weight loss EYES: No discharge, no visual changes, no pain HEENT: No ear pain, no congestion, no sore throat PULM: No shortness of breath, no cough, no congestion CV: + chest wall pain, no dyspnea on exertion, no palpitations GI: No nausea, no vomiting, no diarrhea, no pain, no constipation : No frequency, no urgency, no dysuria MUSC/SKEL: + joint pain, no back pain SKIN: No rash PSYCH: No hallucinations, no depression HEME/LYMPH: No easy bleeding or bruising tendencies NEURO: No weakness, no headache Past Medical History Past Medical History NEUROLOGIC: Positive Neurological Disorders, Seizures (last episode 2-3 years ago) and Epilepsy; Negative Transient Ischemic Attacks (TIA) CARDIAC: Positive Deep Vein Thrombosis and Hypertension; Negative Cardiac Disorders or Congestive Heart Failure RESPIRATORY: Positive Pulmonary Embolism; Negative Chronic Obstructive Pulmonary Disease (COPD), Asthma, Bronchitis or Pneumonia GASTROINTESTINAL: Positive Gastrointestinal Disorders, Gastrointestinal Bleed and Gastroesophageal Reflux Disease GENITOURINARY: Positive Genitourinary Disorders and Renal Disease MUSCULOSKELETAL: Positive Musculoskeletal Disorders, Arthritis, Osteoporosis and Fractures ENDOCRINE: Positive Endocrine Disorders and Diabetes Mellitus Type 2; Negative Diabetes Mellitus Type 1 HEMATOLOGIC: Positive Anemia and Clotting Problems; Negative Blood Disorders or Sickle Cell Disease OTHER HISTORY: Positive Hospitalization, Falls and Blood Transfusions; Negative Autoimmune Disease, Down Syndrome, Developmental Delay, Shingles, Blood Transfusion Reaction, Anesthesia Reactions, MRSA, Clostridium Difficile or Cancer Family History FAMILY HISTORY: Positive Family Cardiac Disorders and Family Cancer Surgical History SURGICAL: Positive Abdominal Surgery and Gastric Bypass Surgery; Negative Cardiac Surgery Social History SMOKING STATUS: Never smoker SECOND HAND EXPOSURE: No SUBSTANCE USE: does not use ED Exam Narrative Physical exam: [General: In moderate discomfort but not in any acute distress Head normocephalic HEENT: Eyes pupils are PERRLA EOMs are intact no raccoon's eyes melvin signs no otorrhea or rhinorrhea. Mouth pink dry membranes uvula is midline swallow symmetrical phonation is normal. All other subsystems of HEENT are within acceptable limits Neck is supple nontender full range of motion flexion extension rotation, no spinous process tenderness with palpation. Chest equal chest rise mild left lateral mid axillary chest wall tenderness to palpation no gross abnormalities. Respiratory: Clear to auscultation no wheezes crackles or rubs CV: Rate rhythm is regular, tachycardic, no murmurs rubs or clicks Abdomen is soft nontender no masses positive bowel sounds all 4 quadrants Back: No CVA tenderness no spinous process tenderness from cervical spine thoracic and lumbar spine Skin: Intact no petechiae rash induration ulceration or crepitus Extremities: Decreased range of motion of the right upper extremity secondary to localized pain. Cap refill in the digits less than 2 seconds neurosensory intact good range of motion of the wrist significant decreased range of motion of the elbow secondary to upper shoulder/arm pain. Moving all other extremities against resistance cap refill less than 2 seconds neurosensory intact Neuro: Awake alert oriented x3 Glascow coma 15 no focal deficits] Course Quality Measures none Orders Category Date Time Status sling [Splint / Immobilizer] STAT Care 02/12/25 12:[address] cervical spine wo con Stat Exams 02/12/25 12:[address] head/brain wo con Stat Exams 02/12/25 12:09 Completed XR chest 2V Stat Exams 02/12/25 12:09 Completed XR humerus RT min 2V Stat Exams 02/12/25 12:09 Completed levETIRAcetam [Keppra] Med 02/12/25 12:09 Discontinued 500 mg PO X1 ONE oxyCODONE/APAP 5/325 [Percocet 5/325] Med 02/12/25 12:09 Discontinued 1 tab PO X1 ONE Vital Signs Vital signs: Vital Signs Temperature 98.1 F 02/12/25 12:03 Pulse Rate 131 H 02/12/25 12:03 Respiratory Rate 20 02/12/25 12:03 Blood Pressure 118/82 02/12/25 12:03 Pulse Oximetry (%) 98 02/12/25 12:03 Oxygen Delivery Method Room Air 02/12/25 12:03 Discharge Plan Plan Patient Disposition: HOME (Self Care) Prescriptions/Referrals Prescriptions/Med Rec: New oxycodone-acetaminophen [Percocet] 5-325 mg tablet 1 tab PO BID MDD 10mg PRN (Reason: pain) Qty: 14 0RF No Action ramipril [Altace] 10 mg Capsule 10 mg PO QDAY ondansetron HCl 8 mg tablet 8 mg PO DAILY PRN (Reason: Nausea) naloxone [Narcan] 4 mg/actuation spray,non-aerosol 1 spray intranasal Q2M PRN (Reason: Respiratory Distress) Rx Instructions: spray 1 dose into ONE nostril; alternate nostrils w each dose until help arrives levetiracetam 500 mg tablet 500 mg PO BID potassium chloride 10 mEq Tablet Extended Release 10 meq PO PRN PRN (Reason: when taking lasix) propranolol 10 mg Tablet 10 mg PO BID Kerendia 10 mg tablet 10 mg PO QDAY (DME) FreeStyle Ramila 3 Sensor Device See Rx Instructions .Route Qty: 1 0RF Rx Instructions: As directed lidocaine 5 % adhesive patch,medicated 3 patch topical QDAY Qty: 30 3RF Rx Instructions: leave on most painful area for up to 12 hrs Referrals: Gamal Medrano MD [Physician] - In 1 week Clay Brannon MD [Primary Care Provider] - In 1 week Problem List Clinical Impression: Fracture, humerus closed, Fall Patient/Caregiver Discharge Instructions Education Materials: ED Fracture, Upper Extremity Additional Instructions: Keep the arm in the sling follow-up with contract negotiation specialist if there is worsening of symptoms return the emergency room for reevaluation Print Language: Kyrgyz Stand Alone Forms: Sherrell Award Info., Work/School Release, Patient Portal Info Letter PA/CUTTING AND PRINTING MACHINE OPERATOR Supervising Physician PA/CUTTING AND PRINTING MACHINE OPERATOR Supervising Physician: Cornel Medina ENP [facility] Clinical Information Provided by patient Medical Records Reviewed [facility] Meds/Rx Considered, not Ordered None Labs/Rad/Tests considered, not Ordered None Chronic Illness/Social Conditions Add or document further as needed: Seizure disorder ESRD note Dr. Romero is his goodwill ambassador EKG EKG not done Lab Interpretation Labs: none Imaging Provider imaging interpretation(s): CT head and C-spine as interpreted by me read by radiology are negative for any acute finding Chest x-ray as interpreted by me read by radiology shows no acute pulmonary finding or suspicion of rib fracture. There is early indication of a humeral fracture Humerus shows a comminuted displaced humeral diaphysis fracture. Medication Administration(s) none Medication Administration History Discontinued Medications Levetiracetam (Levetiracetam 250 Mg Tablet) 500 mg PO X1 ONE Stop: 02/12/25 12:10 Last Admin: 02/12/25 12:51 Dose: 500 mg Documented By: RICARDO Oxycodone/Acetaminophen (Oxycodone/Apap 5/325 Tablet) 1 tab PO X1 ONE Stop: 02/12/25 12:10 Last Admin: 02/12/25 12:51 Dose: 1 tab Documented By: RICARDO Diagnosis Differential diagnosis: Closed head injury neck fracture arm fracture Dispositon Disposition: Discharge Home
== END 2025-02-12 14:41 | disposition home or self-care (01) ==
PROVIDERS: Emergency Provider Emergency Medicine; PCP Family Medicine
DX: S42.351A Displaced comminuted fracture of shaft of humerus, right arm, initial encounter for closed fracture (principal); S19.9XXA Unspecified injury of neck, initial encounter; R51.9 Headache, unspecified; R07.89 Other chest pain; W01.0XXA Fall on same level from slipping, tripping and stumbling without subsequent striking against object, initial encounter
CPT/HCPCS: 70450; 71046; 72125; 73060; 99284; A9270

== ENCOUNTER 2025-02-23 22:20 | Emergency (ER) | payer BC, SELFPAY ==
[2025-02-23 22:27] VITALS: BP 125/84; PULSE 111; RESP 18; TEMP 36.8; O2SAT 98
--- NOTE | 2025-02-23 22:36 | XR_ITS ---
Examination: Humerus 2 views right Technique: Humerus, AP lateral 2 views Date and time of exam: February 23, 2025, 10:58 PM Indications: Fracture humerus February 12, 2025 Findings: Acute comminuted fracture proximal humeral shaft again noted Increased offset at the fracture site with overriding noted No shoulder dislocation Impression: Additional displacement of the comminuted proximal humeral fracture
--- NOTE | 2025-02-23 22:36 | XR_ITS ---
Examination: Shoulder,right, angulation at the proximal humeral fracture site Technique: Shoulder AP internal rotation, single view single view Exam date and time :February 23, 2025, 10:35 PM Indications: Patient fell tonight, history humerus fracture February 12, 2025 Technique: Additional onset and angulation at the proximal humerus fracture site compared with prior study No shoulder dislocation Impression: Additional absent
--- NOTE | 2025-02-23 22:37 | PD.EDRME ---
Rapid Medical Screening Exam E Arrival date/time: 02/23/25 22:20 This is a case of 59-year-old male with history of DVT and PE on Plavix and seizure came in in the emergency room due to fall patient landed on his right arm now with pain swelling patient states that he already fractured his right humerus due to fall 10 days ago patient denies any head neck chest or abdominal injury no loss of consciousness Chief Complaint: Fall Time Seen by Provider: 02/23/25 22:36 Vital signs: Vital Signs Temperature 98.2 F 02/23/25 22:27 Pulse Rate 111 H 02/23/25 22:27 Respiratory Rate 18 02/23/25 22:27 Blood Pressure 125/84 02/23/25 22:27 Pulse Oximetry (%) 98 02/23/25 22:27 Oxygen Delivery Method Room Air 02/23/25 22:27
[2025-02-23 23:18] VITALS: BMI 22.8
--- NOTE | 2025-02-23 23:31 | EDNOTE_ITS ---
Upper Extremity Injury RME/HPI General Chief Complaint: Fall Stated Complaint: FELL Time Seen by Provider: 02/23/25 22:36 Arrival date/time: 02/23/25 22:20 RME / HPI RME / HPI narrative: 02/23/25 22:20 This is a case of 59-year-old male with history of DVT and PE on Plavix and seizure came in in the emergency room due to fall patient landed on his right arm now with pain swelling patient states that he already fractured his right humerus due to fall 10 days ago patient denies any head neck chest or abdominal injury no loss of consciousness DR. CALDERON MAIN ED EVALUATION: 59 y/o male with recent Hx of DVT and PE on Eliquis, Osteoporosis, and recent Hx of right humerus fracture presents to ED c/o RUE pain s/p falling onto his right arm while getting into bed x tonight. He wants to make sure that he did not further damage the RUE. Patient has an appointment with with Dr. Medrano tomorrow for F/U of right humerus fracture. Patient states that he will elect for surgery if it is offered. Tylenol taken at home for management of pain. Related Data Home Medications ?Medication ?Instructions ?Recorded ?Confirmed ramipril 10 mg capsule (Altace) 10 mg PO QDAY 05/22/19 09/09/24 ondansetron HCl 8 mg tablet 8 mg PO DAILY PRN Nausea 0 09/22/22 09/09/24 naloxone 4 mg/actuation nasal 1 spray intranasal Q2M P RN 12/10/22 09/09/24 spray (Narcan) Respiratory Distress levetiracetam 500 mg tablet 500 mg PO BID 07/18/23 potassium chloride 10 mEq 10 meq PO PRN PRN when takin g lasix 07/19/23 09/09/24 tablet,extended release propranolol 10 mg tablet 10 mg PO BID 07/19/23 finerenone 10 mg tablet (Kerendia) 10 mg PO QDAY 04/0309/09/24 Previous Rx's ?Medication ?Instructions ?Recorded blood-glucose sensor (FreeStyle #1 ea 07/16/24 Ramila 3 Sensor device) lidocaine 5 % topical patch 3 patch topical QDAY #30 e a 09/14/24 oxycodone-acetaminophen 5 mg-325 1 tab PO BID PRN pain #14 tabs 02/12/25 mg tablet (Percocet) hydrocodone 10 mg-acetaminophen 1 tab PO Q6H PRN pain #20 tabs 02/23/25 325 mg tablet Allergies Allergy/AdvReac Type Severity Reaction Status Date / Time ibuprofen AdvReac Severe gastric Verified 02/12/25 11:37 bypass Review of Systems Review of Systems Systems Reviewed: All systems reviewed, normal except as documented Past Medical History Past Medical History NEUROLOGIC: Positive Seizures and Epilepsy CARDIAC: Positive Cardiac Arrhythmia, Deep Vein Thrombosis and Hypertension RESPIRATORY: Positive Pulmonary Embolism GASTROINTESTINAL: Positive Gastrointestinal Bleed and Gastroesophageal Reflux Disease GENITOURINARY: Positive Renal Disease MUSCULOSKELETAL: Positive Musculoskeletal Disorders, Arthritis, Osteoporosis and Fractures ENDOCRINE: Positive Diabetes Mellitus Type 2 HEMATOLOGIC: Positive Anemia and Clotting Problems OTHER HISTORY: Positive Hospitalization, Falls and Blood Transfusions Family History FAMILY HISTORY: Positive Family Cancer ED Exam Narrative Physical exam: Generally patient is alert and in no obvious distress, heart irregularly irregular rhythm, lungs clear to auscultation equal bilaterally abdomen soft bowel sounds present and nontender extremities show a brace to the right upper extremity with strong distal radial and ulnar pulses to the right upper extremity. Course Quality Measures none Orders Category Date Time Status XR humerus RT min 2V Stat Exams 02/23/25 22:36 Completed XR shoulder RT min 2V Stat Exams 02/23/25 22:36 Completed Morphine* Inj Med 02/23/25 23:30 Discontinued 5 mg IM X1 ONE Vital Signs Vital signs: Vital Signs Temperature 98.2 F 02/23/25 22:27 Pulse Rate 111 H 02/23/25 22:27 Respiratory Rate 18 02/23/25 22:27 Blood Pressure 125/84 02/23/25 22:27 Pulse Oximetry (%) 98 02/23/25 22:27 Oxygen Delivery Method Room Air 02/23/25 22:27 Extremity Injury MDM Narrative MDM Narrative:: Scribe Attestation: Emily Kang am scribing for and in the presence of Dr. Calderon. Provider Notation: Although this document has been carefully reviewed, there may still be some phonetic and other typographical errors. These errors are purely grammatical due to imperfections in the software program and should not be construed in any way to compromise the substance of the patient's medical care during this visit. X-ray of the right shoulder and right humerus shows a comminuted proximal humeral shaft fracture with little change from the x-ray done 11 days ago. Patient does not appear to have made the fracture any worse when compared to the x-ray done 11 days ago. Patient received morphine 5 mg IM for pain. Patient will be discharged in stable. Patient data External records reviewed:: [facility] previous records (Reviewed prior ED records from 02/12/25. Patient was seen for Fall.) Clinical information provided by:: patient Social determinants that could affect healthcare access:: none Patient has the following chronic illnesses:: Seizures, Epilepsy, Cardiac Arrhythmia, Deep Vein Thrombosis, Hypertension, Pulmonary Embolism, Gastrointestinal Bleed and Gastroesophageal Reflux Disease, Renal Disease, Arthritis, Osteoporosis, Diabetes Mellitus Type 2, Anemia How is presenting disease/condition affected by chronic disease/condition?: uneffected by Evaluation data The following diagnostics were reviewed and interpreted by me:: radiology exam(s) Lab and/or radiology exams considered but not ordered:: None Interpretation Summary: RADIOLOGY Right Humerus X-Ray: Findings: Acute comminuted fracture proximal humeral shaft again noted Increased offset at the fracture site with overriding noted No shoulder dislocation Impression: Additional displacement of the comminuted proximal humeral fracture Right Shoulder X-Ray: Findings: No shoulder dislocation Impression: Additional absent Medications / Prescriptions Medications or Prescriptions considered but not ordered:: None Medication administrations:: Medication Administration History Discontinued Medications Morphine Sulfate (Morphine Sulf Inj 4 Mg/Ml Vial) 5 mg IM X1 ONE Stop: 02/23/25 23:31 Last Admin: 02/23/25 23:37 Dose: 5 mg Documented By: DAMIEN See above if any Consultations Consultation(s) initiated? (list below): No Diagnosis Upper Extremity Injury Differential Diagnosis: dislocation of shoulder, fracture of humerus and fracture of clavicle Most likely diagnosis given after review of the tests above:: none Admission Indicated Admission indicated?: not indicated Explain why admission is indicated or not indicated:: Patient does not meet admission criteria Admission Request Was there a request for admission?: No Disposition Plan Disposition Plan: Discharge Discharge Attestation Discharge Attestation: The patient and all family members were given an opportunity to ask questions and understood the discharge instructions. Discharge instructions specifically effects, indications for sooner follow up or return to the emergency department, and the expected course of current diagnosis. Patient condition: Stable Discharge Plan Plan Patient Disposition: HOME (Self Care) Prescriptions/Referrals Prescriptions/Med Rec: New hydrocodone-acetaminophen 10-325 mg tablet 1 tab PO Q6H MDD 4 PRN (Reason: pain) Qty: 20 0RF No Action ramipril [Altace] 10 mg Capsule 10 mg PO QDAY ondansetron HCl 8 mg tablet 8 mg PO DAILY PRN (Reason: Nausea) naloxone [Narcan] 4 mg/actuation spray,non-aerosol 1 spray intranasal Q2M PRN (Reason: Respiratory Distress) Rx Instructions: spray 1 dose into ONE nostril; alternate nostrils w each dose until help arrives levetiracetam 500 mg tablet 500 mg PO BID potassium chloride 10 mEq Tablet Extended Release 10 meq PO PRN PRN (Reason: when taking lasix) propranolol 10 mg Tablet 10 mg PO BID oxycodone-acetaminophen [Percocet] 5-325 mg tablet 1 tab PO BID MDD 10mg PRN (Reason: pain) Qty: 14 0RF Kerendia 10 mg tablet 10 mg PO QDAY (DME) FreeStyle Ramila 3 Sensor Device See Rx Instructions .Route Qty: 1 0RF Rx Instructions: As directed lidocaine 5 % adhesive patch,medicated 3 patch topical QDAY Qty: 30 3RF Rx Instructions: leave on most painful area for up to 12 hrs Referrals: No Primary/Family,Physician [Primary Care Provider] - In 1 week Problem List Clinical Impression: Fracture, humerus Patient/Caregiver Discharge Instructions Education Materials: ED Fracture, Upper Extremity Additional Instructions: Keep your follow-up appointment with the orthopedic surgeon. Keep the brace applied. Hydrocodone as prescribed for pain. Print Language: Citizen [place] Stand Alone Forms: Sherrell Award Info., Patient Portal Info Letter
[2025-02-23] MEDS: MORPHINE SULF INJ 4 MG/ML VIAL 5 MG IM (23:37)
== END 2025-02-24 00:10 | disposition home or self-care (01) ==
PROVIDERS: Emergency Provider Emergency Medicine
DX: S42.201A Unspecified fracture of upper end of right humerus, initial encounter for closed fracture (principal); W19.XXXA Unspecified fall, initial encounter
CPT/HCPCS: 73030; 73060; 96372; 99283; J2270